=== PATIENT | female | born 1950 | race Caucasian/White ===

== ENCOUNTER 2020-02-13 07:46 | Outpatient (REF) | payer MEDICARE, SELFPAY ==
[2020-02-13 11:54] LABS: Alanine Aminotransferase 11 U/L (0-31); Albumin Level 3.9 g/dL (3.5-5.0); Alkaline Phosphatase 74 U/L (39-117); Anion Gap 13 (12-20); Aspartate Amino Transferase 13 U/L (5-31); Bilirubin Total 0.5 mg/dL (0.0-1.0); Blood Urea Nitrogen 15 mg/dL (9-16); Calcium 6.5 mg/dL (8.4-10.2); Carbon Dioxide 32 mmol/L (22-29); Chloride 97 mmol/L (96-108); Cholesterol 114 mg/dL; Estimated Glomerular Filt Rate > 60; Glucose Fasting 123 mg/dL (60-99); HDL Cholesterol 41 mg/dL; LDL Cholesterol Calculated 37 mg/dl; Sodium 138 mmol/L (135-145); Total Protein 6.7 g/dL (6.5-8.0); Triglycerides 180 mg/dL
[2020-02-13 12:06] LABS: TSH reflex Free T4 4.07 mIU/mL (0.32-4.0)
[2020-02-13 12:24] LABS: Creatinine Urine 154.34 mg/dL; Microalbum/Creatinine Ratio Ur 14.2 ug/mg cr
[2020-02-13 12:43] LABS: Free T4 (Free Thyroxine) 1.23 ng/dL (0.71-1.85)
== END 2020-02-13 07:47 | disposition home or self-care (01) ==
LOC: HO.HMGCLDS 07:46
PROVIDERS: PCP Nurse Practitioner Family; Visit Provider Nurse Practitioner Family
DX: E03.9 Hypothyroidism, unspecified (principal); E11.9 Type 2 diabetes mellitus without complications
CPT/HCPCS: 80053; 80061; 82043; 84439; 84443

== ENCOUNTER 2020-05-22 08:10 | Outpatient (REF) | payer MEDICARE, SELFPAY ==
[2020-05-22 11:38] LABS: Estimated Average Glucose 143 mg/dL; Hemoglobin A1c % 6.6 %
[2020-05-22 12:11] LABS: Alanine Aminotransferase 13 U/L (0-31); Albumin Level 4.1 g/dL (3.5-5.0); Alkaline Phosphatase 59 U/L (39-117); Anion Gap 15 (12-20); Aspartate Amino Transferase 17 U/L (5-31); Bilirubin Total 0.5 mg/dL (0.0-1.0); Blood Urea Nitrogen 14 mg/dL (9-16); Calcium 8.2 mg/dL (8.4-10.2); Carbon Dioxide 29 mmol/L (22-29); Chloride 100 mmol/L (96-108); Cholesterol 150 mg/dL; Estimated Glomerular Filt Rate 54; Glucose Fasting 129 mg/dL (60-99); HDL Cholesterol 43 mg/dL; LDL Cholesterol Calculated 72 mg/dl; Potassium 4.2 mmol/L (3.3-5.1); Sodium 140 mmol/L (135-145); Total Protein 6.9 g/dL (6.5-8.0); Triglycerides 178 mg/dL
[2020-05-22 14:25] LABS: Creatinine Urine 215.46 mg/dL; Microalbum/Creatinine Ratio Ur 12.9 ug/mg cr
== END 2020-05-22 08:11 | disposition home or self-care (01) ==
LOC: HO.HMGCLDS 08:10
PROVIDERS: PCP Nurse Practitioner Family; Visit Provider Nurse Practitioner Family
DX: E11.9 Type 2 diabetes mellitus without complications (principal)
CPT/HCPCS: 36415; 80053; 80061; 82043; 83036

== ENCOUNTER 2020-07-25 11:42 | Outpatient (REF) | payer MEDICARE, SELFPAY ==
--- NOTE | ~2020-07-25 | XR_ITS ---
EXAMINATION: XR FINGER, RIGHT CLINICAL INFORMATION: Pain COMPARISON: None TECHNIQUE: Three views of the right right thumb. FINDINGS: Bone alignment is normal. No fracture or dislocation is seen. There is arthritis at the IP joint with joint space narrowing and osteophyte formation. Soft tissues are unremarkable. 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
== END 2020-07-25 11:43 | disposition home or self-care (01) ==
LOC: HO.HMGCX 11:42
PROVIDERS: PCP Nurse Practitioner Family; Visit Provider Hospitalist
DX: M79.644 Pain in right finger(s) (principal)
CPT/HCPCS: 73140

== ENCOUNTER 2020-08-28 09:14 | Outpatient (REF) | payer MEDICARE, SELFPAY ==
[2020-08-28 11:15] LABS: MANUAL DIFF FLAG NO
[2020-08-28 11:26] LABS: Basophils Absolute Auto 0.1 X10*3/uL (0.0-0.2); Basophils Percent Auto 0.6 % (0-2); Eosinophils Absolute Auto 0.9 X10*3/uL (0.0-0.4); Eosinophils Percent Auto 7.4 % (0-4); Hematocrit 26.9 % (37-47); Hemoglobin 7.5 g/dl (12.0-16.0); Imm Gran Abs Auto 0.07 X10*3/uL (0.00-0.03); Imm Gran Pct Auto 0.6 % (0.0-0.4); Lymphocytes Absolute Auto 2.4 X10*3/uL (1.2-4.9); Lymphocytes Percent Auto 20.3 % (20-40); Mean Corpuscular HGB Conc 27.9 g/dl (31.0-35.0); Mean Corpuscular Hemoglobin 20.8 pg (27.0-33.0); Mean Corpuscular Volume 74.5 fL (80-98); Mean Platelet Volume 11.4 fL (9.4-12.3); Monocytes Absolute Auto 0.9 X10*3/uL (0.1-1.2); Monocytes Percent Auto 7.5 % (2-11); Neutrophils Absolute Auto 7.6 X10*3/uL (2.0-8.3); Neutrophils Percent Auto 63.6 % (45-73); Platelet Count 360 X10*3/uL (160-400); Red Blood Count 3.61 X10*6/uL (4.20-5.50); Red Cell Distribution Width 17.9 % (11.0-16.0); White Blood Count 11.9 X10*3/uL (4.8-10.8)
[2020-08-28 12:12] LABS: TSH reflex Free T4 9.08 uIU/mL (0.32-4.0)
[2020-08-28 12:15] LABS: Alanine Aminotransferase 8 U/L (0-31); Albumin Level 3.8 g/dL (3.5-5.0); Alkaline Phosphatase 61 U/L (39-117); Anion Gap 14 (12-20); Aspartate Amino Transferase 13 U/L (5-31); Bilirubin Total 0.4 mg/dL (0.0-1.0); Blood Urea Nitrogen 23 mg/dL (9-16); Calcium 7.9 mg/dL (8.4-10.2); Carbon Dioxide 28 mmol/L (22-29); Chloride 101 mmol/L (96-108); Estimated Glomerular Filt Rate 43; Glucose Random 154 mg/dL (60-115); Iron 28 mcg/dL (30-160); Percent Iron Saturation 7 % (15-50); Potassium 4.2 mmol/L (3.3-5.1); Sodium 139 mmol/L (135-145); Total Iron Binding Capacity 415 mcg/dL (228-428); Total Protein 6.6 g/dL (6.5-8.0); Unsaturated Iron Binding 387 ug/dL
[2020-08-28 12:24] LABS: Vitamin B12 372 pg/mL (200-900)
[2020-08-28 12:39] LABS: Ferritin 1 ng/mL (10-250)
[2020-08-28 12:59] LABS: Free T4 (Free Thyroxine) 1.01 ng/dL (0.71-1.85)
== END 2020-08-28 09:15 | disposition home or self-care (01) ==
LOC: HO.HMGCLDS 09:14
PROVIDERS: PCP Nurse Practitioner Family; Visit Provider Nurse Practitioner Family
DX: Z13.89 Encounter for screening for other disorder (principal)
CPT/HCPCS: 36415; 80053; 82607; 82728; 83540; 84439; 84443; 85025

== ENCOUNTER 2020-08-28 12:44 | Inpatient (IN) | payer MEDICARE, SELFPAY ==
[2020-08-28] VITALS (9 sets, daily range): BP systolic 135–225; BP diastolic 53–82; PULSE 64–77; RESP 12–20; TEMP 36.9–37.3; O2SAT 99–100; BMI 51.7
--- NOTE | 2020-08-28 18:19 | ECG_ITS ---
Test Reason : LOW HH Blood Pressure : / mmHG Vent. Rate : 064 BPM Atrial Rate : 064 BPM P-R Int : 180 ms QRS Dur : 086 ms QT Int : 444 ms P-R-T Axes : 056 023 060 degrees QTc Int : 458 ms Normal sinus rhythm Septal infarct (cited on or before 02-NOV-2001) Abnormal ECG When compared with ECG of 25-JUN-2011 15:52, T wave inversion now evident in Lateral leads Referred By: Aurora Mayer Electronically Signed By:REINALDO BEASLEY MD
--- NOTE | 2020-08-28 18:52 | ED.RECABL ---
HPI - Recheck/Abnormal Lab/Rx General Chief Complaint: Recheck/Abnormal Lab/Rx Stated Complaint: low blood count Time Seen by Provider: 08/28/20 18:08 Source: patient Mode of arrival: ambulatory Limitations: no limitations History of Present Illness HPI narrative: Patient is a 70-year-old female with DM2, HTN who was sent to the emergency department by her PCP due to a low H&H. Patient admits to fatigue, shortness of breath with exertion and some bloody bowel movements a few weeks ago but states she has not had any recently. She states this is never happened before. Denies fever, chest pain, shortness of breath. Related Data Home Medications Medication Instructions Recorded Confirmed albuterol sulfate 90 mcg/actuation 2 puff INHALATION Q6H PRN 03/06/20 08/28/20 aerosol inhaler calcium carbonate-vitamin D3 1 cap PO BID 08/28/20 08/28/20 ibuprofen 600 mg PO TID PRN 08/28/20 08/28/20 montelukast 10 mg PO BEDTIME 08/28/20 08/28/20 Previous Rx's Medication Instructions Recorded hydrochlorothiazide 25 mg tablet 25 mg PO DAILY 30 Days #30 tab 07/29/20 metformin 1,000 mg tablet 1,000 mg PO BID 30 Days #60 tab 07/29/20 atenolol 50 mg tablet 50 mg PO DAILY #90 tab 07/30/20 levothyroxine 150 mcg tablet 150 mcg PO DAILY #90 tab 08/11/20 prazosin 1 mg capsule 1 mg PO BEDTIME 30 Days #30 cap 08/27/20 Allergies Allergy/AdvReac Type Severity Reaction Status Date / Time latex [Latex] Allergy Unknown BLISTERS Verified 08/27/20 15:43 penicillin V Allergy Unknown unknown Verified 08/27/20 15:43 Penicillins Allergy Unknown RASH Verified 08/27/20 15:43 Review of Systems Review of Systems: Yes all other systems are reviewed and are negative PMFSH Past Medical History Medical History Diabetes Surgical History History of thyroidectomy History of tonsillectomy History of tubal ligation Hx of cholecystectomy Social History Social History Alcohol intake: current Alcohol intake frequency: holidays/special occasions only Patient Tobacco Use Status: Never used Tobacco e-Cigarette/Vaping Use: Never Used Advance Directives: No Advance Directives Information Provided: No Physical Exam Vital Signs: Vital Signs: Last Vital Signs Temp 98.5 F 08/28/20 21:13 Pulse 77 08/28/20 21:13 Resp 17 08/28/20 21:13 BP 159/59 H 08/28/20 21:13 Pulse Ox 100 08/28/20 21:13 Body Mass Index 51.7 Const: General: cooperative, healthy appearing, comfortable, no acute distress and well developed Orientation/consciousness: patient oriented x3 Limitations: no limitations HENMT: Head: Yes normal to inspection Eyes: Conjunctivae: conjunctival abnormal bilateral (Pallor) Neck: Neck: Yes normal visual inspection and Yes full ROM Resp: Effort & Inspection: normal respiratory effort and able to speak in complete sentences Auscultation: clear to auscultation bilaterally Cardio: Rate: regular rate Rhythm: regular rhythm Heart sounds: normal S1 and S2 GI: Inspection: Yes normal to inspection Palpation (GI): Soft to palpation and nontender Skin: General skin exam: no rashes or lesions noted Neuro: General: patient oriented x3 Extrem: General: Yes normal to inspection Course Course Course Narrative: Patient is a 70-year-old female with DM2, HTN who was sent to the emergency department by her PCP due to a low H&H. VSS sans elevated BP 225/82, 184/56 . Labs sig for wbc 11.9, hbg 7.5, hct 26.9, TSH 9.08 (labs drawn by her PCP this am). Reevaluation(s) Reevaluation #1: repet CBC and BMP, Type and screen ordered, 2 units red blood cells ordered, stool occult positive, COVID negative, Patient to be admitted. BP 151/62 currently and other VSS. Time: 18:50 MDM - Recheck/Abnormal Lab/Rx Lab Data Attestation: I reviewed the patient's lab results. Result diagrams: 08/28/20 20:07 08/28/20 20:07 Labs: Lab Results 08/28/20 08/28/20 08/28/20 Range/Units 19:46 19:47 19:47 WBC (4.8-10.8) X10*3/uL RBC (4.20-5.50) X10*6/uL Hgb (12.0-16.0) g/dl Hct (37-47) % MCV (80-98) fL MCH (27.0-33.0) pg MCHC (31.0-35.0) g/dl RDW (11.0-16.0) % Plt Count (160-400) X10*3/uL MPV (9.4-12.3) fL Immature Gran % (Auto) (0.0-0.4) % Neut % (Auto) (45-73) % Lymph % (Auto) (20-40) % [place] % (Auto) (2-11) % Eos % (Auto) (0-4) % Baso % (Auto) (0-2) % Lymph # (Auto) (1.2-4.9) X10*3/uL [place] # (Auto) (0.1-1.2) X10*3/uL Eos # (Auto) (0.0-0.4) X10*3/uL Baso # (Auto) (0.0-0.2) X10*3/uL Abs Immat Gran (auto) (0.00-0.03) X10*3/uL Absolute Neuts (auto) (2.0-8.3) X10*3/uL Absolute Nucleated RBC (0.0-0.012) X10*3/uL Nucleated RBC % (auto) (0.0-0.2) /100WBC Sodium (135-145) mmol/L Potassium (3.3-5.1) mmol/L Chloride (96-108) mmol/L Carbon Dioxide (22-29) mmol/L Anion Gap (12-20) BUN (9-16) mg/dL Creatinine (0.5-1.4) mg/dL Estim Creat Clear Calc Estimated GFR Random Glucose (60-115) mg/dL Calcium (8.4-10.2) mg/dL Troponin I High Sens 4.3 (<3.5-17.0) ng/L Stool Occult Blood (NEGATIVE) COVID-19 ([facility]) Negative (Negative) COVID-19 Clin Com See Note Blood Type A Positive Antibody Screen NEGATIVE Crossmatch See Detail 08/28/20 08/28/20 08/28/20 Range/Units 19:47 20:07 20:07 WBC 11.5 H (4.8-10.8) X10*3/uL RBC 3.64 L (4.20-5.50) X10*6/uL Hgb 7.6 L (12.0-16.0) g/dl Hct 26.6 L (37-47) % MCV 73.1 L (80-98) fL MCH 20.9 L (27.0-33.0) pg MCHC 28.6 L (31.0-35.0) g/dl RDW 17.7 H (11.0-16.0) % Plt Count 367 (160-400) X10*3/uL MPV 11.2 (9.4-12.3) fL Immature Gran % (Auto) 0.6 H (0.0-0.4) % Neut % (Auto) 66.1 (45-73) % Lymph % (Auto) 18.6 L (20-40) % [place] % (Auto) 6.6 (2-11) % Eos % (Auto) 7.6 H (0-4) % Baso % (Auto) 0.5 (0-2) % Lymph # (Auto) 2.1 (1.2-4.9) X10*3/uL [place] # (Auto) 0.8 (0.1-1.2) X10*3/uL Eos # (Auto) 0.9 H (0.0-0.4) X10*3/uL Baso # (Auto) 0.1 (0.0-0.2) X10*3/uL Abs Immat Gran (auto) 0.07 H (0.00-0.03) X10*3/uL Absolute Neuts (auto) 7.6 (2.0-8.3) X10*3/uL Absolute Nucleated RBC 0.000 (0.0-0.012) X10*3/uL Nucleated RBC % (auto) 0.0 (0.0-0.2) /100WBC Sodium 139 (135-145) mmol/L Potassium 3.8 (3.3-5.1) mmol/L Chloride 100 (96-108) mmol/L Carbon Dioxide 29 (22-29) mmol/L Anion Gap 14 (12-20) BUN 18 H (9-16) mg/dL Creatinine 1.06 (0.5-1.4) mg/dL Estim Creat Clear Calc 60.4 Estimated GFR 52 Random Glucose 121 H (60-115) mg/dL Calcium 7.9 L (8.4-10.2) mg/dL Troponin I High Sens (<3.5-17.0) ng/L Stool Occult Blood POSITIVE (NEGATIVE) COVID-19 (FREDO) (Negative) COVID-19 Clin Com Blood Type Antibody Screen Crossmatch ECG Data Attestation: I personally reviewed and interpreted this ECG as follows: Prior ECG tracings: not available for review Interpretation: [address] [id number] ReportDraft Patient: Yulissa EMR#: [id number]: 1950cct:[id number]/Sex: 70 / FADM Date: 08/28/20Loc: [address] Dr: Ordering Physician: Aurora Mayer PA-C Date of Service: 08/28/20 Procedure(s): ECG 12 lead EKG Accession Number(s): [id number] cc: ~ Test Reason : LOW HH Blood Pressure : / mmHG Vent. Rate : 064 BPM Atrial Rate : 064 BPM P-R Int : 180 ms QRS Dur : 086 ms QT Int : 444 ms P-R-T Axes : 056 023 060 degrees QTc Int : 458 ms Normal sinus rhythm Septal infarct (cited on or before 02-NOV-2001) Abnormal ECG When compared with ECG of 25-JUN-2011 15:52, T wave inversion now evident in Lateral leads Referred By: Aurora Mayer Electronically Signed By: Dictated By:Signed By: DD/ 24TD/TT: 08/28/201924Transcriptionist:
[2020-08-28 20:03] LABS: OBS Int Ctl Valid YES; OBS1 POSITIVE (NEGATIVE)
[2020-08-28] MEDS: Furosemide 20 MG/2 ML VIAL IVPUSH (20:08)
[2020-08-28 20:20] LABS: Troponin-I High Sensitivity 4.3 ng/L (<3.5-17.0)
[2020-08-28 20:20] LABS: Basophils Absolute Auto 0.1 X10*3/uL (0.0-0.2); Basophils Percent Auto 0.5 % (0-2); Eosinophils Absolute Auto 0.9 X10*3/uL (0.0-0.4); Eosinophils Percent Auto 7.6 % (0-4); Hematocrit 26.6 % (37-47); Hemoglobin 7.6 g/dl (12.0-16.0); Imm Gran Abs Auto 0.07 X10*3/uL (0.00-0.03); Imm Gran Pct Auto 0.6 % (0.0-0.4); Lymphocytes Absolute Auto 2.1 X10*3/uL (1.2-4.9); Lymphocytes Percent Auto 18.6 % (20-40); Mean Corpuscular HGB Conc 28.6 g/dl (31.0-35.0); Mean Corpuscular Hemoglobin 20.9 pg (27.0-33.0); Mean Corpuscular Volume 73.1 fL (80-98); Mean Platelet Volume 11.2 fL (9.4-12.3); Monocytes Absolute Auto 0.8 X10*3/uL (0.1-1.2); Monocytes Percent Auto 6.6 % (2-11); Neutrophils Absolute Auto 7.6 X10*3/uL (2.0-8.3); Neutrophils Percent Auto 66.1 % (45-73); Platelet Count 367 X10*3/uL (160-400); Red Blood Count 3.64 X10*6/uL (4.20-5.50); Red Cell Distribution Width 17.7 % (11.0-16.0); White Blood Count 11.5 X10*3/uL (4.8-10.8)
[2020-08-28 20:22] LABS: COVID-19 Test Negative (Negative)
--- NOTE | 2020-08-28 20:25 | PHA.MEDREC ---
Pharmacy Consult ? Medication Reconciliation Pharmacy has completed the medication reconciliation and there were no significant medication issues requiring provider attention. Luh Srivastava, PharmD [phone]
[2020-08-28 20:32] LABS: MANUAL DIFF FLAG NO
[2020-08-28 20:45] LABS: Anion Gap 14 (12-20); Calcium 7.9 mg/dL (8.4-10.2); Carbon Dioxide 29 mmol/L (22-29); Chloride 100 mmol/L (96-108); Creatinine Clr Calc Pharmacy 60.4; Estimated Glomerular Filt Rate 52; Glucose Random 121 mg/dL (60-115); Potassium 3.8 mmol/L (3.3-5.1); Sodium 139 mmol/L (135-145)
[2020-08-28 20:51] LABS: Blood Urea Nitrogen 18 mg/dL (9-16)
--- NOTE | 2020-08-28 20:56 | P.HPHOSP_ITS ---
History of Present Illness Date of Service: 08/28/20 Chief Complaint: Anemia 70-year-old female with a past medical history of hypertension, hyperlipidemia, diabetes, asthma, history of thyroid ablation subsequent hypothyroidism on levothyroxine presented to the hospital with a chief complaint of anemia. Patient reported that she had a routine labs done by the PCP and noted to have hemoglobin of 7.5 subsequently recommended to go to the hospital for further evaluation. Patient reported that couple weeks ago she has rectal bleeding. Denies any further episodes of alert. Denies any nausea vomiting. Mentioned that she takes ibuprofen. Denies any GI or symptoms. Denies any chest pain palpitations lightheadedness or dizziness. Patient reports she has shortness of breath and dyspnea on exertion on but not too far from her baseline. Review of all other systems is negative except mentioned above ER course: Per ER team patient noted to be mildly hypertensive on presentation, abdominal examination was benign. Stool guaiac was positive. Repeat hemoglobin pending. Patient being ordered 2 units of PRBC. Admitted to the hospital for further management. REPLACED BY [facility] Medical History Diabetes Surgical History History of thyroidectomy History of tonsillectomy History of tubal ligation Hx of cholecystectomy Social History Household Members: Spouse Housing: House Do you presently have visiting nurse or other home services: No Alcohol intake: current Alcohol intake frequency: holidays/special occasions only Patient Tobacco Use Status: Never used Tobacco e-Cigarette/Vaping Use: Never Used Use of substances other than those prescribed or required for medical reasons: No Currently Displaying Signs/Symptoms of Drug Intoxication Withdrawal: No Have you been hit, kicked, punched, or otherwise hurt by someone within the past year? If so, by whom?: No Do you feel safe in your current relationship?: Yes Is there a partner from a previous relationship who is making you feel unsafe now?: No Are you made to feel afraid or neglected: No Advance Directives: No Advance Directives Information Provided: No Do you have thoughts of harming others: None Do you have a plan to hurt others: No Plan Recently lost weight without trying: No Nutrition Risks: No Nutritional Risk Patient : No : No Poor oral hygiene: No service: No Current occupational status: retired Meds Allergies Allergy/AdvReac Type Severity Reaction Status Date / Time latex [Latex] Allergy Unknown BLISTERS Verified 08/27/20 15:43 penicillin V Allergy Unknown unknown Verified 08/27/20 15:43 Penicillins Allergy Unknown RASH Verified 08/27/20 15:43 Active Medications: Current Medications Generic Name Dose Route Start Last Admin Trade Name Freq PRN Reason Stop Dose Admin Acetaminophen 650 mg 08/28/20 20:53 Acetaminophen 325 Mg Tablet PO Q6H PRN Pain, Mild (Pain Scale 1-3) Albuterol Sulfate 2 puff 08/28/20 20:54 Albuterol Sulfate 90 Mcg 8 Gm Inhaler INHALE Q6H PRN Shortness Of Breath Or Wheezing Atenolol 50 mg 08/29/20 09:00 Atenolol 50 Mg Tablet PO DAILY [facility] Protocol Dextrose/Sodium Chloride 1,000 mls @ 100 mls/hr 08/28/20 21:00 D51/2ns IVCONT .Q10H [facility] Insulin Human Lispro 0 unit 08/28/20 21:00 Insulin Lispro 100 Unit/Ml 3 Ml Vial SUBCUT QIDACHS [facility] Protocol Levothyroxine Sodium 150 mcg 08/29/20 09:00 Levothyroxine Sodium 150 Mcg Tablet PO DAILY [facility] Montelukast Sodium 10 mg 08/28/20 21:00 Montelukast Sodium 10 Mg Tablet PO BEDTIME [facility] Non-Formulary Medication 1 cap 08/28/20 21:00 Calcium Carbonate-Vitamin D3 PO BID [facility] Pantoprazole Sodium 40 mg 08/29/20 06:30 Pantoprazole Sodium 40 Mg/10 Ml Vial IVPUSH BID@0630,1630 [facility] Pharmacy Consult 1 each 08/28/20 19:50 Consult Rx Perform Med Rec MISCELLANE ONCE PRN Consult order Prazosin HCl 1 mg 08/28/20 21:00 Prazosin Hcl 1 Mg Capsule PO BEDTIME [facility] Protocol Sodium Chloride 3 ml 08/29/20 00:00 0.9 % Sodium Chloride Flush 3 Ml Syringe IVFLUSH QSHIFT [facility] Home Medications Medication Instructions Recorded Confirmed Last Taken Type albuterol sulfate 90 mcg/actuation 2 puff INHALATION Q6H PRN 03/06/20 08/28/20 Unknown History aerosol inhaler calcium carbonate-vitamin D3 1 cap PO BID 08/28/20 08/28/20 08/28/20 History ibuprofen 600 mg PO TID PRN 08/28/20 08/28/20 08/27/20 History montelukast 10 mg PO BEDTIME 08/28/20 08/28/20 08/27/20 History Physical Exam Vital Signs and Narrative: Vital Signs: Last Vital Signs Temp 98.6 F 08/28/20 19:48 Pulse 66 08/28/20 19:48 Resp 12 08/28/20 19:48 BP 151/62 H 08/28/20 19:48 Pulse Ox 99 08/28/20 19:48 Body Mass Index 51.7 Gen: Appears be in no acute distress HEENT: NCAT, Moist mucosa. Pulmonary: Vesicular breath sounds, fair air entry CVS: Normal S1-S2 Abdomen: BS+, Soft, Nontender Extremities: Warm well perfused Neuro: Alert and awake. Results Labs CBC and Chem 7: 08/31/20 05:48 08/31/20 05:48 Labs: Laboratory Results - last 24 hr 08/28/20 08/28/20 08/28/20 19:46 19:47 19:47 MCV MCH MCHC RDW Plt Count MPV Immature Gran % (Auto) Neut % (Auto) Lymph % (Auto) [place] % (Auto) Eos % (Auto) Baso % (Auto) Lymph # (Auto) [place] # (Auto) Eos # (Auto) Baso # (Auto) Abs Immat Gran (auto) Absolute Neuts (auto) Absolute Nucleated RBC Nucleated RBC % (auto) Anion Gap Estim Creat Clear Calc Estimated GFR Random Glucose Calcium Troponin I High Sens 4.3 Stool Occult Blood COVID-19 ([facility]) Negative COVID-19 Clin Com See Note Blood Type A Positive Antibody Screen NEGATIVE Crossmatch See Detail 08/28/20 08/28/20 08/28/20 19:47 20:07 20:07 MCV 73.1 L MCH 20.9 L MCHC 28.6 L RDW 17.7 H Plt Count 367 MPV 11.2 Immature Gran % (Auto) 0.6 H Neut % (Auto) 66.1 Lymph % (Auto) 18.6 L [place] % (Auto) 6.6 Eos % (Auto) 7.6 H Baso % (Auto) 0.5 Lymph # (Auto) 2.1 [place] # (Auto) 0.8 Eos # (Auto) 0.9 H Baso # (Auto) 0.1 Abs Immat Gran (auto) 0.07 H Absolute Neuts (auto) 7.6 Absolute Nucleated RBC 0.000 Nucleated RBC % (auto) 0.0 Anion Gap 14 Estim Creat Clear Calc 60.4 Estimated GFR 52 Random Glucose 121 H Calcium 7.9 L Troponin I High Sens Stool Occult Blood POSITIVE COVID-19 (FREDO) COVID-19 Clin Com Blood Type Antibody Screen Crossmatch Assessment and Plan (1) Anemia: Status: Acute 70-year-old female with a past medical history of hypertension, hyperlipidemia, diabetes, asthma, hypothyroidism presented to the hospital with a chief complaint of anemia. Anemia: Patient was stool guaiac positive. GI consult IV ppi Patient being transfused 2 units of PRBC. Serial H&H Patient vitals are currently stable. Will continue to monitor on telemetry. Hypertension: Patient will be continued on home antihypertensives including atenolol given patient blood pressure is slightly on the higher side on presentation. Hypothyroidism: Patient TSH is 9.0-unclear if the patient a levothyroxine dose has been recently adjusted. Will defer to the a.m. team to discuss with the patient's PCP and adjust dose accordingly. Will continue the patient's current levothyroxine dose of 150 mcg. DVT prophylaxis: SCD boots Code status: Full code
[2020-08-28 21:23] LABS: Glucose, Whole Blood 115 mg/dL (60-115)
[2020-08-28] MEDS: Dextrose 5 % and 0.45 % NaCl 1,000 ML 100 ML IVCONT (21:52)
[2020-08-28] MEDS: Montelukast Sodium 10 MG TABLET PO (21:55)
[2020-08-28] MEDS: Prazosin HCL 1 MG CAPSULE PO (21:55)
[2020-08-29] VITALS (12 sets, daily range): BP systolic 125–174; BP diastolic 53–79; PULSE 53–80; RESP 16–19; TEMP 36–37.2; O2SAT 97–100
--- NOTE | 2020-08-29 00:31 | PC.NURSE ---
Pt's RAC IV infiltrated. IV removed, fluids switched to other IV. Pt IV maintenance fluids will need to be paused during administration of blood as this RN unable to obtain to additional PIV
[2020-08-29] MEDS: 0.9 % Sodium Chloride Flush 3 ML SYRINGE IVFLUSH ×3 (01:25→21:18)
[2020-08-29] MEDS: Levothyroxine Sodium 150 MCG TABLET PO (05:35)
[2020-08-29] MEDS: Pantoprazole Sodium 40 MG/10 ML VIAL IVPUSH ×2 (05:36→17:17)
[2020-08-29 06:54] LABS: MANUAL DIFF FLAG NO
[2020-08-29 07:04] LABS: Basophils Absolute Auto 0.1 X10*3/uL (0.0-0.2); Basophils Percent Auto 0.5 % (0-2); Eosinophils Absolute Auto 0.7 X10*3/uL (0.0-0.4); Eosinophils Percent Auto 7.2 % (0-4); Hematocrit 30.8 % (37-47); Hemoglobin 9.1 g/dl (12.0-16.0); Imm Gran Abs Auto 0.05 X10*3/uL (0.00-0.03); Imm Gran Pct Auto 0.5 % (0.0-0.4); Lymphocytes Absolute Auto 1.7 X10*3/uL (1.2-4.9); Lymphocytes Percent Auto 16.9 % (20-40); Mean Corpuscular HGB Conc 29.5 g/dl (31.0-35.0); Mean Corpuscular Hemoglobin 22.4 pg (27.0-33.0); Mean Corpuscular Volume 75.9 fL (80-98); Mean Platelet Volume 10.6 fL (9.4-12.3); Monocytes Absolute Auto 0.7 X10*3/uL (0.1-1.2); Monocytes Percent Auto 7.3 % (2-11); Neutrophils Absolute Auto 6.8 X10*3/uL (2.0-8.3); Neutrophils Percent Auto 67.6 % (45-73); Platelet Count 308 X10*3/uL (160-400); Red Blood Count 4.06 X10*6/uL (4.20-5.50); Red Cell Distribution Width 18.9 % (11.0-16.0); White Blood Count 10.1 X10*3/uL (4.8-10.8)
[2020-08-29 07:19] LABS: Glucose, Whole Blood 158 mg/dL (60-115)
[2020-08-29 07:28] LABS: Magnesium 1.6 mg/dL (1.6-2.6)
[2020-08-29 07:33] LABS: Anion Gap 14 (12-20); Blood Urea Nitrogen 16 mg/dL (9-16); Calcium 7.4 mg/dL (8.4-10.2); Carbon Dioxide 28 mmol/L (22-29); Chloride 100 mmol/L (96-108); Estimated Glomerular Filt Rate 55; Glucose Random 156 mg/dL (60-115); Potassium 3.4 mmol/L (3.3-5.1); Sodium 139 mmol/L (135-145)
[2020-08-29] MEDS: Calcium + Vitamin D 250 MG TABLET 500 MG PO ×2 (07:53→21:17)
[2020-08-29] MEDS: atenoloL 50 MG TABLET PO (07:54)
--- NOTE | 2020-08-29 09:03 | P.CDIC_ITS ---
CDI Concurrent Query Service Date: 08/29/20 Documentation Clarification: Please clarify if you are treating a proba ble/suspected/likely or confirmed: Acute Blood Loss Anemia Other Anemia, please specify if known Provider Response: Acute Blood Loss Anemia PLEASE DO NOT DELETE/MODIFY EXISTING CONTENT Additional information is needed in order to code to the highest accuracy and appropriate Severity of Illness (SOI). Please clarify the information noted below in your progress notes and discharge summary. Risk Factors/Clinical Indicators/Treatments 70 year old female admitted with low H/H of 7.5/26.9 Stool occult blood positive Treated with IV PPI and transfusion 2 units PRBCs Per H&P Impression: Anemia GI consult pending CDS: Tamia Veliz RN Contact Number: [phone] Please Review the information above and exercise your independent professional judgment in responding to the query. If you concur, pleas document in the PROGRESS NOTES and DISCHARGE SUMMARY. If you do not agree with the query, please document in the query above. THIS QUERY IS PART OF THE PERMANENT MEDICAL RECORD
[2020-08-29] MEDS: Dextrose 5 % and 0.45 % NaCl 1,000 ML 100 ML IVCONT ×2 (10:35→21:18)
--- NOTE | 2020-08-29 11:12 | P.PNIM_ITS ---
Subjective Subjective Date of Service: 08/29/20 <SOILA Harper - Last Filed: 08/29/20 11:39> 08/29/20 <Heber Munguia MD - Last Filed: 08/29/20 17:41> Interval History: Seen and examined this morning, follow-up for anemia Patient reports 2 weeks ago she had 2 days of bright red blood per rectum which resolved spontaneously. Prior to that she had taken ibuprofen scheduled for a few days due to hand pain. She denies any rectal bleeding since that time. She is unsure if her stool may be darker than usual. She denies any dizziness, shortness of breath, chest pain, fatigue. She denies any abdominal pain <SOILA Harper - Last Filed: 08/29/20 11:39> Review of Systems Review of Systems: Yes all other systems are reviewed and are negative <SOILA Harper - Last Filed: 08/29/20 11:39> Constitutional Constitutional: Denies chills and Denies fever(s) <SOILA Harper - Last Filed: 08/29/20 11:39> Cardiovascular Cardiovascular: Denies chest pain <SOILA Harper - Last Filed: 08/29/20 11:39> Respiratory Respiratory: Denies cough <SOILA Harper Last Filed: 08/29/20 11:39> Gastrointestinal Gastrointestinal: Denies abdominal pain <SOILA Harper - Last Filed: 08/29/20 11:39> Physical Exam Vital Signs: Vital Signs: Last Vital Signs Temp 97.1 F 08/29/20 07:11 Pulse 64 08/29/20 07:54 Resp 18 08/29/20 07:11 BP 155/66 H 08/29/20 07:54 Pulse Ox 99 08/29/20 07:11 Body Mass Index 51.7 <SOILA Harper Last Filed: 08/29/20 11:39> Const: General: comfortable and no acute distress <SOILA Harper Last Filed: 08/29/20 11:39> Nutritional Appearance: obese <SOILA Harper Last Filed: 08/29/20 11:39> Orientation/consciousness: patient oriented x3 <SOILA Harper Last Filed: 08/29/20 11:39> HENMT: Head: Yes normocephalic and Yes atraumatic <SOILA Harper - Last Filed: 08/29/20 11:39> Eyes: Sclerae: sclerae normal <SOILA Harper - Last Filed: 08/29/20 11:39> Chest: Chest palpation & inspection: normal inspection of the chest <SOILA Harper - Last Filed: 08/29/20 11:39> Resp: Effort & Inspection: normal respiratory effort and no respiratory distress <SOILA Harper - Last Filed: 08/29/20 11:39> Cardio: Rate: regular rate <SOILA Harper - Last Filed: 08/29/20 11:39> Rhythm: regular rhythm <SOILA Harper - Last Filed: 08/29/20 11:39> GI: Palpation (GI): Soft to palpation and nontender <SOILA Harper - Last Filed: 08/29/20 11:39> Neuro: General: patient oriented x3 <SOILA Harper - Last Filed: 08/29/20 11:39> Cranial nerves: Yes CN's II-XII intact bilaterally and Yes Bilaterally intact EOM present <SOILA Harper Last Filed: 08/29/20 11:39> Objective Data Current Medications Generic Name Dose Route Start Last Admin Trade Name Anahi PRN Reason Stop Dose Admin Acetaminophen 650 mg 08/28/20 20:53 Acetaminophen 325 Mg Tablet PO Q6H PRN Pain, Mild (Pain Scale 1-3) Albuterol Sulfate 2 puff 08/28/20 20:54 Albuterol Sulfate 90 Mcg 8 Gm Inhaler INHALE Q6H PRN Shortness Of Breath Or Wheezing Atenolol 50 mg 08/29/20 09:00 08/29/20 07:54 Atenolol 50 Mg Tablet PO 50 mg DAILY [facility] Administration Protocol Calcium Carbonate/Cholecalciferol 500 mg 08/29/20 09:00 08/29/20 07:53 Calcium + Vitamin D 250 Mg Tablet PO 500 mg BID [facility] Administration Dextrose/Sodium Chloride 1,000 mls @ 100 mls/hr 08/28/20 21:00 08/29/20 10:35 D51/2ns IVCONT 100 mls/hr .Q10H [facility] Administration Insulin Human Lispro 0 unit 08/28/20 21:00 08/29/20 08:58 Insulin Lispro 100 Unit/Ml 3 Ml Vial SUBCUT Not Given QIDACHS [facility] Protocol Levothyroxine Sodium 150 mcg 08/29/20 06:00 08/29/20 05:35 Levothyroxine Sodium 150 Mcg Tablet PO 150 mcg DAILY@0600 [facility] Administration Montelukast Sodium 10 mg 08/28/20 21:00 08/28/20 21:55 Montelukast Sodium 10 Mg Tablet PO 10 mg BEDTIME [facility] Administration Pantoprazole Sodium 40 mg 08/29/20 06:30 08/29/20 05:36 Pantoprazole Sodium 40 Mg/10 Ml Vial IVPUSH 40 mg BID@0630,1630 [facility] Administration Pharmacy Consult 1 each 08/28/20 19:50 Consult Rx Perform Med Rec MISCELLANE ONCE PRN Consult order Prazosin HCl 1 mg 08/28/20 21:00 08/28/20 21:55 Prazosin Hcl 1 Mg Capsule PO 1 mg BEDTIME [facility] Administration Protocol Sodium Chloride 3 ml 08/29/20 00:00 08/29/20 07:54 0.9 % Sodium Chloride Flush 3 Ml Syringe IVFLUSH Not Given QSHIFT [facility] <SOILA Harper - Last Filed: 08/29/20 11:39> Labs CBC & Chem 7: : 08/29/20 06:39 08/29/20 06:39 <SOILA Harper - Last Filed: 08/29/20 11:39> Assessment and Plan (1) Anemia: Status: Acute <SOILA Harper - Last Filed: 08/29/20 11:39> Assessment and Plan: This is a 70-year-old female with a past medical history of hypertension, hyperlipidemia, diabetes, asthma, history of thyroid ablation subsequent hypothyroidism on levothyroxine who was sent to the emergency department by PCP after routine labs revealed hemoglobin of 7.5. Anemia with heme-positive stool/ probable acute blood loss anemia 2 days of BRBPR 2 weeks ago. no active bleeding since. no baseline H/H in system. -s/p transfusion 2U rbc with appropriate rise in H/H -GI consult pending -follow H/H HTN -continue atenolol Hypothyroidism TSH elevated, outpatient follow up -continue Synthroid Morbid obesity BMI 51.8 -weight loss encouraged DVT ppx - boots code status - full code Attending: Dr. Munguia <SOILA Harper - Last Filed: 08/29/20 11:39> I saw the patient and discussed finding, mangement, and disposition with SOILA and I agree with above, except if otherwise stated. <Heber Munguia MD - Last Filed: 08/29/20 17:41>
[2020-08-29 12:53] LABS: Glucose, Whole Blood 151 mg/dL (60-115)
--- NOTE | 2020-08-29 16:12 | MHC.CM.PN ---
CM MET WITH PT WHO REPORTS SHE LIVES AT HOME WITH HER AND IS INDEPENDENT WITH ALL CARE AND MOBILITY. PT DENIES THE USE OF DME AND HAS NO IN HOME SERVICES. PT CONFIRMS HER PCP IS AJIT JARRETT. PT REPORTS SHE DOES NOT HAVE A HCP, SHE DOES NOT WANT TO COMPLETE ONE TODAY BUT IS INTERESTED IN RECEIVING INFORMATION. IMM DELIVERED CURRENT DC PLAN IS HOME FAMILY TO TRANSPORT
--- NOTE | 2020-08-29 16:37 | PM.EVENT ---
Event Note Date of Service: 08/29/20 Event Note: GI consult dictated Iron def anemia and heme positive stools s/p 2 u prbc's without signs of active bleeding EGD and colonoscopy 09/01 for further evaluation. Pt aware of risks and benefits and agrees to proceed.
[2020-08-29 16:38] LABS: Glucose, Whole Blood 134 mg/dL (60-115)
--- NOTE | 2020-08-29 16:40 | MHC.SHP ---
Pre-Procedural Eval Section A The patient is an INPATIENT: Yes Changes since office visit: No Cold of Flu in the past 2 weeks, No New Medical Problems, No Changes in Medication and No Patient answered all questions The History & Physical has been completed within 30 days and I have reviewed it.: Yes Section B Chief Complaint: Anemia Allergies: Allergies Allergy/AdvReac Type Severity Reaction Status Date / Time latex [Latex] Allergy Unknown BLISTERS Verified 08/27/20 15:43 penicillin V Allergy Unknown unknown Verified 08/27/20 15:43 Penicillins Allergy Unknown RASH Verified 08/27/20 15:43 Plan I have reviewed the history and physical and performed a pertinent physical examination on my patient. No changes have occurred unless specified.
[2020-08-29 20:53] LABS: Glucose, Whole Blood 126 mg/dL (60-115)
[2020-08-29] MEDS: Montelukast Sodium 10 MG TABLET PO (21:17)
[2020-08-29] MEDS: Prazosin HCL 1 MG CAPSULE PO (21:17)
[2020-08-30] VITALS (8 sets, daily range): BP systolic 118–144; BP diastolic 47–66; PULSE 60–75; RESP 18–20; TEMP 36.3–36.9; O2SAT 98
--- NOTE | 2020-08-30 01:20 | CONS_ITS ---
DATE OF SERVICE: 08/29/2020 REFERRING PHYSICIAN: SOILA Horan REASON FOR CONSULTATION: Iron-deficiency anemia and Hemoccult-positive stools. HISTORY OF PRESENT ILLNESS: The patient is a pleasant 70-year-old woman, who was admitted to the hospital after presenting to the emergency room yesterday with complaints of anemia. Lab work done to her PCP documented a hematocrit of 26.9 on August 28. The patient states for 2 months, she has been cold and has been eating ice. She has had 2 episodes of hematochezia, where red blood was noted in the toilet bowl, but did not seek care for this. She has not noted any lizbeth melena. She does use occasional ibuprofen for joint aches and pains, but denies a prior history of peptic ulcer disease or chronic upper GI symptoms. She received 2 units of packed red blood cells in transfusion after admission and has had no signs of bleeding. Iron studies have documented iron deficiency with a saturation of 7 and a ferritin of 1. She previously underwent colonoscopy in 2014 for colon cancer screening, this showed sigmoid diverticulosis and small internal hemorrhoids. She has not had upper endoscopy. Stool testing has been positive for occult blood. PAST MEDICAL HISTORY: 1. Diabetes mellitus. 2. Hypertension. 3. Hyperlipidemia. 4. Asthma. 5. Thyroid disease. PAST SURGICAL HISTORY: Includes cholecystectomy and tonsillectomy and tubal ligation and thyroidectomy. CURRENT MEDICATIONS: Her current medication list is reviewed in the chart. ALLERGIES: TO LATEX AND PENICILLIN. FAMILY HISTORY: Negative for GI malignancy. SOCIAL HISTORY: She does not smoke. She occasionally drinks alcohol. 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 REVIEW OF SYSTEMS: SKIN: No pruritus. HEENT: Negative. CARDIOPULMONARY: She denies shortness of breath or chest pain. GASTROINTESTINAL: As above. GENITOURINARY: Negative. NEUROPSYCHIATRIC: Negative. PHYSICAL EXAMINATION: GENERAL: Shows a pleasant female, lying in bed under multiple blankets. VITAL SIGNS: Reviewed in electronic medical record and are stable. SKIN: Anicteric. HEENT: Shows no scleral icterus. NECK: Without lymphadenopathy or thyromegaly. LUNGS: Clear. HEART: Shows regular rate and rhythm. S1, S2. No murmur. ABDOMEN: Soft without focal masses or tenderness. Bowel sounds are present. No organomegaly is noted. EXTREMITIES: Without edema. LABORATORY DATA: Reviewed. IMPRESSION: Iron-deficiency anemia with Hemoccult-positive stools. At this time, she does not show signs of active bleeding and has had an appropriate response to blood transfusion. I would recommend monitoring her hematocrit. She is being treated empirically with a proton pump inhibitor. I discussed endoscopy and colonoscopy including risks and benefits for further evaluation. She understands these and agrees to proceed. This will be arranged for the . Thanks for asking me to see her. I will follow her in the hospital with you. MD AMI Matthew/EVERTON / [phone]
[2020-08-30] MEDS: Levothyroxine Sodium 150 MCG TABLET PO (06:10)
[2020-08-30] MEDS: Pantoprazole Sodium 40 MG/10 ML VIAL IVPUSH ×2 (06:10→16:33)
[2020-08-30] MEDS: Dextrose 5 % and 0.45 % NaCl 1,000 ML 100 ML IVCONT ×2 (06:14→16:34)
[2020-08-30 07:17] LABS: Glucose, Whole Blood 161 mg/dL (60-115)
[2020-08-30] MEDS: Insulin Lispro 100 UNIT/ML 3 ML VIAL SUBCUT ×2 (08:00→13:44)
[2020-08-30 09:14] LABS: Hematocrit 29.6 % (37-47); Hemoglobin 8.8 g/dl (12.0-16.0)
[2020-08-30] MEDS: 0.9 % Sodium Chloride Flush 3 ML SYRINGE IVFLUSH ×3 (10:01→20:06)
[2020-08-30] MEDS: Calcium + Vitamin D 250 MG TABLET 500 MG PO ×2 (10:01→20:06)
--- NOTE | 2020-08-30 10:02 | P.PNIM_ITS ---
Subjective Subjective Date of Service: 08/30/20 <Christine Delacruz NP - Last Filed: 08/30/20 10:06> 08/31/20 <Heber Munguia MD - Last Filed: 08/31/20 14:14> Interval History: follow-up anemia feeling better no bleeding <Christine Delacruz NP - Last Filed: 08/30/20 10:06> Physical Exam Vital Signs: Vital Signs: Last Vital Signs Temp 97.4 F 08/30/20 07:20 Pulse 64 08/30/20 07:20 Resp 20 08/30/20 07:20 BP 130/59 L 08/30/20 07:20 Pulse Ox 98 08/30/20 07:20 Body Mass Index 51.7 <Christine Delacruz NP - Last Filed: 08/30/20 10:06> Appearing in no acute distress, pale lung sounds are clear to auscultation heart regular rate rhythm, clear S1, S2 positive bowel sounds, abdomen is soft, nontender neuro patient is alert x3, no focal deficits <Christine Delacruz NP - Last Filed: 08/30/20 10:06> Objective Data Current Medications Generic Name Dose Route Start Last Admin Trade Name Freq PRN Reason Stop Dose Admin Acetaminophen 650 mg 08/28/20 20:53 Acetaminophen 325 Mg Tablet PO Q6H PRN Pain, Mild (Pain Scale 1-3) Albuterol Sulfate 2 puff 08/28/20 20:54 Albuterol Sulfate 90 Mcg 8 Gm Inhaler INHALE Q6H PRN Shortness Of Breath Or Wheezing Atenolol 50 mg 08/29/20 09:00 08/29/20 07:54 Atenolol 50 Mg Tablet PO 50 mg DAILY [facility] Administration Protocol Calcium Carbonate/Cholecalciferol 500 mg 08/29/20 09:00 08/29/20 21:17 Calcium + Vitamin D 250 Mg Tablet PO 500 mg BID [facility] Administration Dextrose/Sodium Chloride 1,000 mls @ 100 mls/hr 08/28/20 21:00 08/30/20 06:14 D51/2ns IVCONT 100 mls/hr .Q10H [facility] Administration Insulin Human Lispro 0 unit 08/28/20 21:00 08/29/20 21:22 Insulin Lispro 100 Unit/Ml 3 Ml Vial SUBCUT Not Given QIDACHS [facility] Protocol Levothyroxine Sodium 150 mcg 08/29/20 06:00 08/30/20 06:10 Levothyroxine Sodium 150 Mcg Tablet PO 150 mcg DAILY@0600 [facility] Administration Montelukast Sodium 10 mg 08/28/20 21:00 08/29/20 21:17 Montelukast Sodium 10 Mg Tablet PO 10 mg BEDTIME [facility] Administration Pantoprazole Sodium 40 mg 08/29/20 06:30 08/30/20 06:10 Pantoprazole Sodium 40 Mg/10 Ml Vial IVPUSH 40 mg BID@0630,1630 [facility] Administration Pharmacy Consult 1 each 08/28/20 19:50 Consult Rx Perform Med Rec MISCELLANE ONCE PRN Consult order Polyethylene Glycol/Electrolytes 240 ml 08/31/20 13:00 Peg 3350/Na Sulf,Bicarb,Cl/Kcl 4,000 Ml Soln.Recon PO 08/31/20 15:41 Q10M [facility] Prazosin HCl 1 mg 08/28/20 21:00 08/29/20 21:17 Prazosin Hcl 1 Mg Capsule PO 1 mg BEDTIME [facility] Administration Protocol Sodium Chloride 3 ml 08/29/20 00:00 08/29/20 21:18 0.9 % Sodium Chloride Flush 3 Ml Syringe IVFLUSH 3 ml QSHIFT [facility] Administration <Christine Delacruz NP - Last Filed: 08/30/20 10:06> Labs CBC & Chem 7: : 08/31/20 05:48 08/31/20 05:48 <Christine Delacruz NP - Last Filed: 08/30/20 10:06> Assessment and Plan (1) Anemia: Status: Acute <Christine Delacruz NP - Last Filed: 08/30/20 10:06> Assessment and Plan: 70-year-old female with a past medical history of hypertension, hyperlipidemia, diabetes, asthma, history of thyroid ablation subsequent hypothyroidism on levothyroxine who was sent to the emergency department by PCP after routine labs revealed hemoglobin of 7.5. Anemia with heme-positive stool/ probable acute blood loss anemia 2 days of BRBPR 2 weeks ago. no active bleeding since. no baseline H/H in system. -s/p transfusion 2U rbc with appropriate rise in H/H -Plan for EGD and colonoscopy on Tuesday -follow H/H HTN -continue atenolol Hypothyroidism TSH elevated, outpatient follow up -continue Synthroid Morbid obesity BMI 51.8 -weight loss encouraged as this can contribute to worsening of other comorbidities DVT ppx - boots due to anemia full code Attending: Dr. Munguia <Christine Delacruz NP - Last Filed: 08/30/20 10:06> I saw and examined the patient and discussed findings, mangement, and disposition with PA and I agree with the above, except if otherwise stated < Heber Munguia MD - Last Filed: 08/31/20 14:14>
[2020-08-30] MEDS: atenoloL 50 MG TABLET PO (10:04)
[2020-08-30 11:20] LABS: Glucose, Whole Blood 161 mg/dL (60-115)
[2020-08-30 16:22] LABS: Glucose, Whole Blood 112 mg/dL (60-115)
[2020-08-30] MEDS: Prazosin HCL 1 MG CAPSULE PO (20:05)
[2020-08-30] MEDS: Montelukast Sodium 10 MG TABLET PO (20:06)
[2020-08-30 20:26] LABS: Glucose, Whole Blood 139 mg/dL (60-115)
[2020-08-31 04:00] VITALS: BP 124/58; PULSE 66; RESP 18; TEMP 36.8; O2SAT 98
[2020-08-31] MEDS: Levothyroxine Sodium 150 MCG TABLET PO (05:51)
[2020-08-31] MEDS: Pantoprazole Sodium 40 MG/10 ML VIAL IVPUSH ×2 (05:51→16:43)
[2020-08-31 07:13] LABS: Hematocrit 29.9 % (37-47); Hemoglobin 8.7 g/dl (12.0-16.0); Mean Corpuscular HGB Conc 29.1 g/dl (31.0-35.0); Mean Corpuscular Hemoglobin 22.4 pg (27.0-33.0); Mean Corpuscular Volume 76.9 fL (80-98); Mean Platelet Volume 10.9 fL (9.4-12.3); Platelet Count 282 X10*3/uL (160-400); Red Blood Count 3.89 X10*6/uL (4.20-5.50); Red Cell Distribution Width 19.5 % (11.0-16.0); White Blood Count 9.1 X10*3/uL (4.8-10.8)
[2020-08-31 07:37] LABS: Anion Gap 14 (12-20); Blood Urea Nitrogen 15 mg/dL (9-16); Calcium 7.3 mg/dL (8.4-10.2); Carbon Dioxide 26 mmol/L (22-29); Chloride 105 mmol/L (96-108); Creatinine Clr Calc Pharmacy 71.1; Estimated Glomerular Filt Rate > 60; Glucose Random 123 mg/dL (60-115); Potassium 3.5 mmol/L (3.3-5.1); Sodium 141 mmol/L (135-145)
[2020-08-31] MEDS: 0.9 % Sodium Chloride Flush 3 ML SYRINGE IVFLUSH (07:43)
[2020-08-31 07:47] LABS: Glucose, Whole Blood 124 mg/dL (60-115)
[2020-08-31 08:00] VITALS: BP 163/77; PULSE 64; RESP 20; TEMP 36; O2SAT 97
[2020-08-31] MEDS: atenoloL 50 MG TABLET PO (08:37)
[2020-08-31] MEDS: Calcium + Vitamin D 250 MG TABLET 500 MG PO ×2 (08:37→22:00)
[2020-08-31] MEDS: Dextrose 5 % and 0.45 % NaCl 1,000 ML 100 ML IVCONT ×2 (08:38→16:35)
--- NOTE | 2020-08-31 09:55 | P.PNIM_ITS ---
Subjective Subjective Date of Service: 08/31/20 <Christine Delacruz NP - Last Filed: 08/31/20 09:57> 08/31/20 <Heber Munguia MD - Last Filed: 08/31/20 14:12> Interval History: Follow-up anemia of bed to chair no bleeding <Christine Delacruz NP - Last Filed: 08/31/20 09:57> Physical Exam Vital Signs: Vital Signs: Last Vital Signs Temp 96.8 F 08/31/20 08:00 Pulse 64 08/31/20 08:00 Resp 20 08/31/20 08:00 BP 163/77 H 08/31/20 08:00 Pulse Ox 97 08/31/20 08:00 Body Mass Index 51.7 <Christine Delacruz NP - Last Filed: 08/31/20 09:57> Appearing in no acute distress lung sounds are clear to auscultation heart regular rate rhythm, clear S1, S2 positive bowel sounds, abdomen is soft, nontender neuro patient is alert x3, no focal deficits <Christine Delacruz NP - Last Filed: 08/31/20 09:57> Objective Data Current Medications Generic Name Dose Route Start Last Admin Trade Name Freq PRN Reason Stop Dose Admin Acetaminophen 650 mg 08/28/20 20:53 Acetaminophen 325 Mg Tablet PO Q6H PRN Pain, Mild (Pain Scale 1-3) Albuterol Sulfate 2 puff 08/28/20 20:54 Albuterol Sulfate 90 Mcg 8 Gm Inhaler INHALE Q6H PRN Shortness Of Breath Or Wheezing Atenolol 50 mg 08/29/20 09:00 08/31/20 08:37 Atenolol 50 Mg Tablet PO 50 mg DAILY [facility] Administration Protocol Calcium Carbonate/Cholecalciferol 500 mg 08/29/20 09:00 08/31/20 08:37 Calcium + Vitamin D 250 Mg Tablet PO 500 mg BID [facility] Administration Dextrose/Sodium Chloride 1,000 mls @ 100 mls/hr 08/28/20 21:00 08/31/20 08:38 D51/2ns IVCONT 100 mls/hr .Q10H [facility] Administration Insulin Human Lispro 0 unit 08/28/20 21:00 08/31/20 08:35 Insulin Lispro 100 Unit/Ml 3 Ml Vial SUBCUT Not Given QIDACHS [facility] Protocol Levothyroxine Sodium 150 mcg 08/29/20 06:00 08/31/20 05:51 Levothyroxine Sodium 150 Mcg Tablet PO 150 mcg DAILY@0600 [facility] Administration Montelukast Sodium 10 mg 08/28/20 21:00 08/30/20 20:06 Montelukast Sodium 10 Mg Tablet PO 10 mg BEDTIME [facility] Administration Pantoprazole Sodium 40 mg 08/29/20 06:30 08/31/20 05:51 Pantoprazole Sodium 40 Mg/10 Ml Vial IVPUSH 40 mg BID@0630,1630 [facility] Administration Pharmacy Consult 1 each 08/28/20 19:50 Consult Rx Perform Med Rec MISCELLANE ONCE PRN Consult order Polyethylene Glycol/Electrolytes 240 ml 08/31/20 13:00 Peg 3350/Na Sulf,Bicarb,Cl/Kcl 4,000 Ml Soln.Recon PO 08/31/20 15:41 Q10M [facility] Prazosin HCl 1 mg 08/28/20 21:00 08/30/20 20:05 Prazosin Hcl 1 Mg Capsule PO 1 mg BEDTIME [facility] Administration Protocol Sodium Chloride 3 ml 08/29/20 00:00 08/31/20 07:43 0.9 % Sodium Chloride Flush 3 Ml Syringe IVFLUSH 3 ml QSHIFT [facility] Administration <Christine Delacruz NP - Last Filed: 08/31/20 09:57> Labs CBC & Chem 7: : 08/31/20 05:48 08/31/20 05:48 <Christine Delacruz NP - Last Filed: 08/31/20 09:57> Assessment and Plan (1) Anemia: Status: Acute <Christine Delacruz NP - Last Filed: 08/31/20 09:57> Assessment and Plan: 70-year-old female with a past medical history of hypertension, hyperlipidemia, diabetes, asthma, history of thyroid ablation subsequent hypothyroidism on levothyroxine who was sent to the emergency department by PCP after routine labs revealed hemoglobin of 7.5. Anemia with heme-positive stool/ probable acute blood loss anemia 2 days of BRBPR 2 weeks ago. no active bleeding since. no baseline H/H in system. -s/p transfusion 2U rbc with appropriate rise in H/H -Plan for EGD and colonoscopy on Tuesday -follow H/H - clear liquid diet, NPO after midnight - bowel prep HTN -continue atenolol Hypothyroidism TSH elevated, outpatient follow up -continue Synthroid Morbid obesity BMI 51.8 -weight loss encouraged as this can contribute to worsening of other comorbidities DVT ppx - boots due to anemia full code Attending: Dr. Munguia <Christine Delacruz NP - Last Filed: 08/31/20 09:57> I saw and examined the patient and discussed findings, mangement, and disposition with PA and I agree with the above, except if otherwise stated. 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 She can come off tele <Heber Munguia MD - Last Filed: 08/31/20 14:12>
[2020-08-31 11:41] LABS: Glucose, Whole Blood 161 mg/dL (60-115)
[2020-08-31] MEDS: Insulin Lispro 100 UNIT/ML 3 ML VIAL SUBCUT (11:41)
[2020-08-31 12:00] VITALS: BP 165/70; PULSE 60; RESP 16; TEMP 36; O2SAT 99
[2020-08-31] MEDS: PEG 3350/Na Sulf,Bicarb,Cl/KCL 4,000 ML SOLN.RECON 4000 ML PO (13:39)
[2020-08-31 15:12] VITALS: BP 162/75; PULSE 59; RESP 14; TEMP 36.4; O2SAT 100
[2020-08-31 16:40] LABS: Glucose, Whole Blood 122 mg/dL (60-115)
[2020-08-31 19:59] VITALS: BP 148/63; PULSE 61; RESP 14; TEMP 36.2; O2SAT 100
[2020-08-31 20:43] LABS: Glucose, Whole Blood 116 mg/dL (60-115)
[2020-08-31] MEDS: Prazosin HCL 1 MG CAPSULE PO (22:00)
[2020-08-31] MEDS: Montelukast Sodium 10 MG TABLET PO (22:00)
[2020-09-01] VITALS (12 sets, daily range): BP systolic 114–176; BP diastolic 50–73; PULSE 56–77; RESP 16–18; TEMP 35.5–36.8; O2SAT 96–100
[2020-09-01] MEDS: Pantoprazole Sodium 40 MG/10 ML VIAL IVPUSH (06:11)
[2020-09-01] MEDS: Levothyroxine Sodium 150 MCG TABLET PO (06:11)
[2020-09-01 07:13] LABS: Hematocrit 29.3 % (37-47); Hemoglobin 8.6 g/dl (12.0-16.0); Mean Corpuscular HGB Conc 29.4 g/dl (31.0-35.0); Mean Corpuscular Hemoglobin 22.9 pg (27.0-33.0); Mean Corpuscular Volume 77.9 fL (80-98); Mean Platelet Volume 10.8 fL (9.4-12.3); Platelet Count 278 X10*3/uL (160-400); Red Blood Count 3.76 X10*6/uL (4.20-5.50); Red Cell Distribution Width 19.7 % (11.0-16.0); White Blood Count 9.6 X10*3/uL (4.8-10.8)
[2020-09-01 07:13] LABS: Glucose, Whole Blood 130 mg/dL (60-115)
[2020-09-01] MEDS: atenoloL 50 MG TABLET PO (07:31)
[2020-09-01] MEDS: 0.9 % Sodium Chloride Flush 3 ML SYRINGE IVFLUSH ×2 (07:32→17:08)
[2020-09-01] MEDS: Calcium + Vitamin D 250 MG TABLET 500 MG PO ×2 (07:32→20:43)
[2020-09-01 07:44] LABS: Anion Gap 17 (12-20); Blood Urea Nitrogen 8 mg/dL (9-16); Calcium 7.1 mg/dL (8.4-10.2); Carbon Dioxide 22 mmol/L (22-29); Chloride 106 mmol/L (96-108); Creatinine Clr Calc Pharmacy 69.6; Estimated Glomerular Filt Rate > 60; Glucose Fasting 115 mg/dL (60-99); Potassium 3.5 mmol/L (3.3-5.1); Sodium 141 mmol/L (135-145)
[2020-09-01 11:32] LABS: Glucose, Whole Blood 120 mg/dL (60-115)
--- NOTE | 2020-09-01 14:07 | P.CONAN_ITS ---
[facility] Active Problems Active Problems: All Active Problems (Updated 09/01/20 @ 13:01 by Mirna cordero RN) Hypothyroid (Acute) Dermatitis (Acute) Eczema (Acute) Dyshidrotic eczema (Acute) Cellulitis (Acute) Minimal depression (Acute) Pain of right thumb (Acute) Fatigue (Acute) Anemia (Acute) Acute lower gastrointestinal bleeding (Acute) Anemia (Acute) Diabetes (Acute) Past Medical History Medical History (Updated 09/01/20 @ 13:01 by Mirna Allen RN) Asthma Diabetes HTN (hypertension) Thyroid disease Surgical History Surgical History History of thyroidectomy History of tonsillectomy History of tubal ligation Hx of cholecystectomy Social History Social History Household Members: Spouse Housing: House Do you presently have visiting nurse or other home services: No Alcohol intake: current Alcohol intake frequency: holidays/special occasions only Patient Tobacco Use Status: Never used Tobacco e-Cigarette/Vaping Use: Never Used Use of substances other than those prescribed or required for medical reasons: No Currently Displaying Signs/Symptoms of Drug Intoxication Withdrawal: No Have you been hit, kicked, punched, or otherwise hurt by someone within the past year? If so, by whom?: No Do you feel safe in your current relationship?: Yes Is there a partner from a previous relationship who is making you feel unsafe now?: No Are you made to feel afraid or neglected: No Are you DNR?: No Advance Directives: No Advance Directives Information Provided: No Do you have thoughts of harming others: None Do you have a plan to hurt others: No Plan Recently lost weight without trying: No Nutrition Risks: No Nutritional Risk Patient : No : No Poor oral hygiene: No service: No Current occupational status: retired Meds Allergies Allergy/AdvReac Type Severity Reaction Status Date / Time latex [Latex] Allergy Unknown BLISTERS Verified 08/27/20 15:43 penicillin V Allergy Unknown unknown Verified 08/27/20 15:43 Penicillins Allergy Unknown RASH Verified 08/27/20 15:43 Active Medications: Current Medications Generic Name Dose Route Start Last Admin Trade Name Freq PRN Reason Stop Dose Admin Acetaminophen 650 mg 08/28/20 20:53 Acetaminophen 325 Mg Tablet PO Q6H PRN Pain, Mild (Pain Scale 1-3) Albuterol Sulfate 2 puff 08/28/20 20:54 Albuterol Sulfate 90 Mcg 8 Gm Inhaler INHALE Q6H PRN Shortness Of Breath Or Wheezing Atenolol 50 mg 08/29/20 09:00 09/01/20 07:31 Atenolol 50 Mg Tablet PO 50 mg DAILY [facility] Administration Protocol Calcium Carbonate/Cholecalciferol 500 mg 08/29/20 09:00 09/01/20 07:32 Calcium + Vitamin D 250 Mg Tablet PO 500 mg BID [facility] Administration Insulin Human Lispro 0 unit 08/28/20 21:00 09/01/20 11:40 Insulin Lispro 100 Unit/Ml 3 Ml Vial SUBCUT Not Given QIDACHS [facility] Protocol Levothyroxine Sodium 150 mcg 08/29/20 06:00 09/01/20 06:11 Levothyroxine Sodium 150 Mcg Tablet PO 150 mcg DAILY@0600 [facility] Administration Montelukast Sodium 10 mg 08/28/20 21:00 08/31/20 22:00 Montelukast Sodium 10 Mg Tablet PO 10 mg BEDTIME [facility] Administration Pharmacy Consult 1 each 08/28/20 19:50 Consult Rx Perform Med Rec MISCELLANE ONCE PRN Consult order Prazosin HCl 1 mg 08/28/20 21:00 08/31/20 22:00 Prazosin Hcl 1 Mg Capsule PO 1 mg BEDTIME [facility] Administration Protocol Sodium Chloride 3 ml 08/29/20 00:00 09/01/20 07:32 0.9 % Sodium Chloride Flush 3 Ml Syringe IVFLUSH 3 ml QSHIFT [facility] Administration Home Medications Medication Instructions Recorded Confirmed Last Taken Type albuterol sulfate 90 mcg/actuation 2 puff INHALATION Q6H PRN 03/06/20 08/28/20 Unknown History aerosol inhaler calcium carbonate-vitamin D3 1 cap PO BID 08/28/20 08/28/20 08/28/20 History ibuprofen 600 mg PO TID PRN 08/28/20 08/28/20 08/27/20 History montelukast 10 mg PO BEDTIME 08/28/20 08/28/20 08/27/20 History Exam Exam Date and Time: September 01, 2020 1407 Height,Weight and Vital Signs: Height 5 ft Weight 120.202 kg Last Vital Signs Temp 97.2 F 09/01/20 13:02 Pulse 58 09/01/20 13:02 Resp 16 09/01/20 13:02 BP 149/50 H 09/01/20 13:02 Pulse Ox 99 09/01/20 13:02 Pertinent Lab Results Pertinent Lab Results: Laboratory Tests 08/28/20 08/28/20 08/28/20 19:46 19:47 19:47 WBC RBC Hgb Hct MCV MCH MCHC RDW Plt Count MPV Immature Gran % (Auto) Neut % (Auto) Lymph % (Auto) Upson % (Auto) Eos % (Auto) Baso % (Auto) Lymph # (Auto) Upson # (Auto) Eos # (Auto) Baso # (Auto) Abs Immat Gran (auto) Absolute Neuts (auto) Absolute Nucleated RBC Nucleated RBC % (auto) Sodium Potassium Chloride Carbon Dioxide Anion Gap BUN Creatinine Estim Creat Clear Calc Estimated GFR POC Glucose Random Glucose Fasting Glucose Calcium Magnesium Troponin I High Sens 4.3 Stool Occult Blood COVID-19 ([facility]) Negative COVID-19 Clin Com See Note Blood Type A Positive Antibody Screen NEGATIVE Crossmatch See Detail 08/28/20 08/28/20 08/28/20 19:47 20:07 20:07 WBC 11.5 H RBC 3.64 L Hgb 7.6 L Hct 26.6 L MCV 73.1 L MCH 20.9 L MCHC 28.6 L RDW 17.7 H Plt Count 367 MPV 11.2 Immature Gran % (Auto) 0.6 H Neut % (Auto) 66.1 Lymph % (Auto) 18.6 L Upson % (Auto) 6.6 Eos % (Auto) 7.6 H Baso % (Auto) 0.5 Lymph # (Auto) 2.1 Upson # (Auto) 0.8 Eos # (Auto) 0.9 H Baso # (Auto) 0.1 Abs Immat Gran (auto) 0.07 H Absolute Neuts (auto) 7.6 Absolute Nucleated RBC 0.000 Nucleated RBC % (auto) 0.0 Sodium 139 Potassium 3.8 Chloride 100 Carbon Dioxide 29 Anion Gap 14 BUN 18 H Creatinine 1.06 Estim Creat Clear Calc 60.4 Estimated GFR 52 POC Glucose Random Glucose 121 H Fasting Glucose Calcium 7.9 L Magnesium Troponin I High Sens Stool Occult Blood POSITIVE COVID-19 ([facility]) COVID-19 [facility] Com Blood Type Antibody Screen Crossmatch 08/28/20 08/29/20 08/29/20 21:19 06:39 06:39 WBC 10.1 RBC 4.06 L Hgb 9.1 L Hct 30.8 L MCV 75.9 L MCH 22.4 L MCHC 29.5 L RDW 18.9 H Plt Count 308 MPV 10.6 Immature Gran % (Auto) 0.5 H Neut % (Auto) 67.6 Lymph % (Auto) 16.9 L Upson % (Auto) 7.3 Eos % (Auto) 7.2 H Baso % (Auto) 0.5 Lymph # (Auto) 1.7 Upson # (Auto) 0.7 Eos # (Auto) 0.7 H Baso # (Auto) 0.1 Abs Immat Gran (auto) 0.05 H Absolute Neuts (auto) 6.8 Absolute Nucleated RBC 0.000 Nucleated RBC % (auto) 0.0 Sodium 139 Potassium 3.4 Chloride 100 Carbon Dioxide 28 Anion Gap 14 BUN 16 Creatinine 1.00 Estim Creat Clear Calc 64.0 Estimated GFR 55 POC Glucose 115 Random Glucose 156 H Fasting Glucose Calcium 7.4 L D Magnesium Troponin I High Sens Stool Occult Blood COVID-19 ([facility]) COVID-19 [facility] Blood Type Antibody Screen Crossmatch 08/29/20 08/29/20 08/29/20 06:39 07:10 11:21 WBC RBC Hgb Hct MCV MCH MCHC RDW Plt Count MPV Immature Gran % (Auto) Neut % (Auto) Lymph % (Auto) Upson % (Auto) Eos % (Auto) Baso % (Auto) Lymph # (Auto) Upson # (Auto) Eos # (Auto) Baso # (Auto) Abs Immat Gran (auto) Absolute Neuts (auto) Absolute Nucleated RBC Nucleated RBC % (auto) Sodium Potassium Chloride Carbon Dioxide Anion Gap BUN Creatinine Estim Creat Clear Calc Estimated GFR POC Glucose 158 H 151 H Random Glucose Fasting Glucose Calcium Magnesium 1.6 Troponin I High Sens Stool Occult Blood COVID-19 ([facility]) COVID-19 [facility] Blood Type Antibody Screen Crossmatch 08/29/20 08/29/20 08/30/20 16:27 20:49 07:13 WBC RBC Hgb Hct MCV MCH MCHC RDW Plt Count MPV Immature Gran % (Auto) Neut % (Auto) Lymph % (Auto) Upson % (Auto) Eos % (Auto) Baso % (Auto) Lymph # (Auto) Upson # (Auto) Eos # (Auto) Baso # (Auto) Abs Immat Gran (auto) Absolute Neuts (auto) Absolute Nucleated RBC Nucleated RBC % (auto) Sodium Potassium Chloride Carbon Dioxide Anion Gap BUN Creatinine Estim Creat Clear Calc Estimated GFR POC Glucose 134 H 126 H 161 H Random Glucose Fasting Glucose Calcium Magnesium Troponin I High Sens Stool Occult Blood COVID-19 ([facility]) COVID-19 [employer] Blood Type Antibody Screen Crossmatch 08/30/20 08/30/20 08/30/20 08:41 11:16 16:19 WBC RBC Hgb 8.8 L Hct 29.6 L MCV MCH MCHC RDW Plt Count MPV Immature Gran % (Auto) Neut % (Auto) Lymph % (Auto) Upson % (Auto) Eos % (Auto) Baso % (Auto) Lymph # (Auto) Upson # (Auto) Eos # (Auto) Baso # (Auto) Abs Immat Gran (auto) Absolute Neuts (auto) Absolute Nucleated RBC Nucleated RBC % (auto) Sodium Potassium Chloride Carbon Dioxide Anion Gap BUN Creatinine Estim Creat Clear Calc Estimated GFR POC Glucose 161 H 112 Random Glucose Fasting Glucose Calcium Magnesium Troponin I High Sens Stool Occult Blood COVID-19 ([facility]) COVID-19 [employer] Blood Type Antibody Screen Crossmatch 08/30/20 08/31/20 08/31/20 20:19 05:48 05:48 WBC 9.1 RBC 3.89 L Hgb 8.7 L Hct 29.9 L MCV 76.9 L MCH 22.4 L MCHC 29.1 L RDW 19.5 H Plt Count 282 MPV 10.9 Immature Gran % (Auto) Neut % (Auto) Lymph % (Auto) Upson % (Auto) Eos % (Auto) Baso % (Auto) Lymph # (Auto) Upson # (Auto) Eos # (Auto) Baso # (Auto) Abs Immat Gran (auto) Absolute Neuts (auto) Absolute Nucleated RBC 0.000 Nucleated RBC % (auto) 0.0 Sodium 141 Potassium 3.5 Chloride 105 Carbon Dioxide 26 Anion Gap 14 BUN 15 Creatinine 0.90 Estim Creat Clear Calc 71.1 Estimated GFR > 60 POC Glucose 139 H Random Glucose 123 H Fasting Glucose Calcium 7.3 L Magnesium Troponin I High Sens Stool Occult Blood COVID-19 ([facility]) COVID-19 [facility] Com Blood Type Antibody Screen Crossmatch 08/31/20 08/31/20 08/31/20 07:43 11:37 16:24 WBC RBC Hgb Hct MCV MCH MCHC RDW Plt Count MPV Immature Gran % (Auto) Neut % (Auto) Lymph % (Auto) Upson % (Auto) Eos % (Auto) Baso % (Auto) Lymph # (Auto) Upson # (Auto) Eos # (Auto) Baso # (Auto) Abs Immat Gran (auto) Absolute Neuts (auto) Absolute Nucleated RBC Nucleated RBC % (auto) Sodium Potassium Chloride Carbon Dioxide Anion Gap BUN Creatinine Estim Creat Clear Calc Estimated GFR POC Glucose 124 H 161 H 122 H Random Glucose Fasting Glucose Calcium Magnesium Troponin I High Sens Stool Occult Blood COVID-19 ([facility]) [employer] [facility] Blood Type Antibody Screen Crossmatch 08/31/20 09/01/20 09/01/20 20:34 05:46 05:46 WBC 9.6 RBC 3.76 L Hgb 8.6 L Hct 29.3 L MCV 77.9 L MCH 22.9 L MCHC 29.4 L RDW 19.7 H Plt Count 278 MPV 10.8 Immature Gran % (Auto) Neut % (Auto) Lymph % (Auto) Upson % (Auto) Eos % (Auto) Baso % (Auto) Lymph # (Auto) Upson # (Auto) Eos # (Auto) Baso # (Auto) Abs Immat Gran (auto) Absolute Neuts (auto) Absolute Nucleated RBC 0.000 Nucleated RBC % (auto) 0.0 Sodium 141 Potassium 3.5 Chloride 106 Carbon Dioxide 22 Anion Gap 17 BUN 8 L Creatinine 0.92 Estim Creat Clear Calc 69.6 Estimated GFR > 60 POC Glucose 116 H Random Glucose Fasting Glucose 115 H Calcium 7.1 L Magnesium Troponin I High Sens Stool Occult Blood COVID-19 ([facility]) [employer] [facility] Blood Type Antibody Screen Crossmatch 09/01/20 09/01/20 06:58 11:01 WBC RBC Hgb Hct MCV MCH MCHC RDW Plt Count MPV Immature Gran % (Auto) Neut % (Auto) Lymph % (Auto) Upson % (Auto) Eos % (Auto) Baso % (Auto) Lymph # (Auto) Upson # (Auto) Eos # (Auto) Baso # (Auto) Abs Immat Gran (auto) Absolute Neuts (auto) Absolute Nucleated RBC Nucleated RBC % (auto) Sodium Potassium Chloride Carbon Dioxide Anion Gap BUN Creatinine Estim Creat Clear Calc Estimated GFR POC Glucose 130 H 120 H Random Glucose Fasting Glucose Calcium Magnesium Troponin I High Sens Stool Occult Blood COVID-19 ([facility]) COVID-19 Clin Com Blood Type Antibody Screen Crossmatch Airway Mallampati Class: II TM Dist: >3cm Neck ROM: Full Partial: Upper Heart: rrr Lungs: CtA Assessment and Plan Assessment Anesthesia Assessment: Anesthesia Plan Discussed and Chart Reviewed Final Anesthetic Review NPO: Yes (Sip water with medicine) ASA Class: III Final Preanesthetic Review: No Changes in Pt Med Stat and Consent Obtained/Reviewed Patient Risk: Intermediate Procedure Risk: Intermediate Anesthetic Plan Anesthetic Plan: MAC: Disposition: Standard PACU
--- NOTE | 2020-09-01 16:26 | P.BOP_ITS ---
Brief Operative Note Date of Service: 09/01/20 Pre-op diagnosis: Iron deficiency anemia Post-op diagnosis: other (R/O Celiac disease, Mild GERD, Small hiatal hernia, Diverticulosis, Small internal hemorrhoids) Procedure: EGD with biopsies, Colonoscopy to the cecum and TI Surgeon: Cory Sweeney Anesthesia: MAC Was an Supply Chain Design Manager used for this Procedure?: No Estimated blood loss (mL): 3.0 Pathology: other (A. Descending duodenum B. EG Junction at 38cm) Condition: stable Disposition: PACU
--- NOTE | 2020-09-01 16:28 | PM.EVENT ---
Event Note Date of Service: 09/01/20 Event Note: GI-Full note dictated EGD- 1. Small hiatal hernia and mild changes of reflux-biopsied EG Junction x 3-no esophagitis 2. Remainder of exam WNL--biopsied descending duodenum, R/O celiac disease Colonoscopy to the cecum and TI- 1. Sigmoid diverticulosis 2. Internal hemorrhoids Imp: No findings to explain her Iron deficiency anemia. Rec: Advance diet, check path, start po Iron, F/U labs in AM. She will need an outpatient small bowel video capsule study. She could be discharged by tomorrow if stable. Will arrange for outpatient follow up. D/W patient. Thanks.
--- NOTE | 2020-09-01 16:40 | P.PNIM_ITS ---
Subjective Subjective Date of Service: 09/01/20 Interval History: follow up GI bleed no further bleeding no abdominal pain EGD and colonoscopy today Physical Exam Vital Signs: Vital Signs: Last Vital Signs Temp 98 F 09/01/20 16:28 Pulse 77 09/01/20 16:28 Resp 16 09/01/20 16:28 BP 114/54 L 09/01/20 16:28 Pulse Ox 98 09/01/20 16:28 Body Mass Index 51.7 Appearing in no acute distress lung sounds are clear to auscultation heart regular rate rhythm, clear S1, S2 positive bowel sounds, abdomen is soft, nontender neuro patient is alert x3, no focal deficits Objective Data Current Medications Generic Name Dose Route Start Last Admin Trade Name Freq PRN Reason Stop Dose Admin Acetaminophen 650 mg 08/28/20 20:53 Acetaminophen 325 Mg Tablet PO Q6H PRN Pain, Mild (Pain Scale 1-3) Albuterol Sulfate 2 puff 08/28/20 20:54 Albuterol Sulfate 90 Mcg 8 Gm Inhaler INHALE Q6H PRN Shortness Of Breath Or Wheezing Atenolol 50 mg 08/29/20 09:00 09/01/20 07:31 Atenolol 50 Mg Tablet PO 50 mg DAILY [facility] Administration Protocol Calcium Carbonate/Cholecalciferol 500 mg 08/29/20 09:00 09/01/20 07:32 Calcium + Vitamin D 250 Mg Tablet PO 500 mg BID [facility] Administration Ferrous Sulfate 324 mg 09/01/20 16:36 Ferrous Sulfate 324 Mg Tablet.Dr GAFFNEY QAM [facility] Lactated Ringer's 1,000 mls @ 50 mls/hr 09/01/20 14:15 Lr IVCONT .Q20H [facility] Insulin Human Lispro 0 unit 08/28/20 21:00 09/01/20 11:40 Insulin Lispro 100 Unit/Ml 3 Ml Vial SUBCUT Not Given QIDACHS [facility] Protocol Levothyroxine Sodium 150 mcg 08/29/20 06:00 09/01/20 06:11 Levothyroxine Sodium 150 Mcg Tablet PO 150 mcg DAILY@0600 [facility] Administration Montelukast Sodium 10 mg 08/28/20 21:00 08/31/20 22:00 Montelukast Sodium 10 Mg Tablet PO 10 mg BEDTIME [facility] Administration Ondansetron HCl 4 mg 09/01/20 15:25 Ondansetron Hcl 4 Mg/2 Ml Vial IVPUSH ONCE PRN Nausea and Vomiting Pharmacy Consult 1 each 08/28/20 19:50 Consult Rx Perform Med Rec MISCELLANE ONCE PRN Consult order Prazosin HCl 1 mg 08/28/20 21:00 08/31/20 22:00 Prazosin Hcl 1 Mg Capsule PO 1 mg BEDTIME [facility] Administration Protocol Sodium Chloride 3 ml 08/29/20 00:00 09/01/20 07:32 0.9 % Sodium Chloride Flush 3 Ml Syringe IVFLUSH 3 ml QSHIFT [facility] Administration Labs CBC & Chem 7: 09/01/20 05:46 09/01/20 05:46 Labs: Laboratory Results - last 24 hr 08/31/20 08/31/20 09/01/20 16:24 20:34 05:46 WBC 9.6 RBC 3.76 L Hgb 8.6 L Hct 29.3 L MCV 77.9 L MCH 22.9 L MCHC 29.4 L RDW 19.7 H Plt Count 278 MPV 10.8 Absolute Nucleated RBC 0.000 Nucleated RBC % (auto) 0.0 Sodium Potassium Chloride Carbon Dioxide Anion Gap BUN Creatinine Estim Creat Clear Calc Estimated GFR POC Glucose 122 H 116 H Fasting Glucose Calcium 09/01/20 09/01/20 09/01/20 05:46 06:58 11:01 WBC RBC Hgb Hct MCV MCH MCHC RDW Plt Count MPV Absolute Nucleated RBC Nucleated RBC % (auto) Sodium 141 Potassium 3.5 Chloride 106 Carbon Dioxide 22 Anion Gap 17 BUN 8 L Creatinine 0.92 Estim Creat Clear Calc 69.6 Estimated GFR > 60 POC Glucose 130 H 120 H Fasting Glucose 115 H Calcium 7.1 L Assessment and Plan (1) Hypothyroid: Status: Acute Assessment and Plan: 70-year-old female with a past medical history of hypertension, hyperlipidemia, diabetes, asthma, history of thyroid ablation subsequent hypothyroidism on levothyroxine who was sent to the emergency department by PCP after routine labs revealed hemoglobin of 7.5. Anemia with heme-positive stool/ probable acute blood loss anemia 2 days of BRBPR 2 weeks ago. no active bleeding since. no baseline H/H in s ystem. -s/p transfusion 2U rbc with appropriate rise in H/H -EGD showed hiatal hernia and changes of reflux, no esophagitis. [place] diverticulosis, internal hemorrhoids -advance diet -oral iron -hh in the morning -o/p capsule study HTN -continue atenolol Hypothyroidism TSH elevated, outpatient follow up -continue Synthroid Morbid obesity BMI 51.8 -weight loss encouraged as this can contribute to worsening of other comorbidities DISPO: Home tomorrow if medically stable DVT ppx - boots due to anemia full code Attending: Dr. Torrez
[2020-09-01] MEDS: Ferrous Sulfate 324 MG TABLET.DR PO (17:07)
[2020-09-01 17:09] LABS: Glucose, Whole Blood 109 mg/dL (60-115)
[2020-09-01] MEDS: Lactated Ringers 1,000 ML 50 ML IVCONT (17:09)
[2020-09-01 20:18] LABS: Glucose, Whole Blood 127 mg/dL (60-115)
[2020-09-01] MEDS: Prazosin HCL 1 MG CAPSULE PO (20:43)
[2020-09-01] MEDS: Montelukast Sodium 10 MG TABLET PO (20:43)
[2020-09-02 03:09] VITALS: BP 116/56; PULSE 59; RESP 18; TEMP 36.4; O2SAT 99
[2020-09-02] MEDS: Levothyroxine Sodium 150 MCG TABLET PO (05:08)
[2020-09-02 06:22] LABS: MANUAL DIFF FLAG NO
[2020-09-02 06:56] LABS: Basophils Percent Auto 0.5 % (0-2); Eosinophils Absolute Auto 0.7 X10*3/uL (0.0-0.4); Eosinophils Percent Auto 8.3 % (0-4); Hematocrit 29.7 % (37-47); Hemoglobin 8.8 g/dl (12.0-16.0); Imm Gran Abs Auto 0.03 X10*3/uL (0.00-0.03); Imm Gran Pct Auto 0.4 % (0.0-0.4); Lymphocytes Absolute Auto 1.8 X10*3/uL (1.2-4.9); Lymphocytes Percent Auto 21.1 % (20-40); Mean Corpuscular HGB Conc 29.6 g/dl (31.0-35.0); Mean Corpuscular Hemoglobin 22.8 pg (27.0-33.0); Mean Corpuscular Volume 76.9 fL (80-98); Mean Platelet Volume 11.2 fL (9.4-12.3); Monocytes Absolute Auto 0.5 X10*3/uL (0.1-1.2); Monocytes Percent Auto 5.4 % (2-11); Neutrophils Absolute Auto 5.5 X10*3/uL (2.0-8.3); Neutrophils Percent Auto 64.3 % (45-73); Platelet Count 301 X10*3/uL (160-400); Red Blood Count 3.86 X10*6/uL (4.20-5.50); White Blood Count 8.5 X10*3/uL (4.8-10.8)
[2020-09-02 06:58] LABS: Anion Gap 14 (12-20); Blood Urea Nitrogen 9 mg/dL (9-16); Calcium 7.3 mg/dL (8.4-10.2); Carbon Dioxide 25 mmol/L (22-29); Chloride 107 mmol/L (96-108); Creatinine Clr Calc Pharmacy 62.8; Estimated Glomerular Filt Rate 54; Glucose Fasting 112 mg/dL (60-99); Potassium 3.7 mmol/L (3.3-5.1); Sodium 142 mmol/L (135-145)
[2020-09-02 07:09] VITALS: BP 134/67; PULSE 61; RESP 20; TEMP 36.6; O2SAT 97
[2020-09-02 07:14] LABS: Glucose, Whole Blood 116 mg/dL (60-115)
--- NOTE | 2020-09-02 08:27 | PM.DS ---
DS: Providers Provider Date of Service: 09/02/20 <Christine Delacruz NP - Last Filed: 09/02/20 12:53> Date of admission: 08/28/20 20:53 <Christine Delacruz NP - Last Filed: 09/02/20 12:53> Date of discharge: 09/02/20 <Christine Delacruz NP - Last Filed: 09/02/20 12:53> Primary care physician: James William [facility] <Christine Delacruz NP - Last Filed: 09/02/20 12:53> Admitting clinician: Nabil Dixon <Christine Delacruz NP - Last Filed: 09/02/20 12:53> Attending physician on admission: Nabil Dixon <Christine Delacruz NP - Last Filed: 09/02/20 12:53> Consults: 08/28/20 20:54 Consult to Gastroenterology Routine Consulting Provider: Cory Padron Reason for consultation: anemia <Christine Delacruz NP - Last Filed: 09/02/20 12:53> Attending physician on discharge: Chacho Torrez <Christine Delacruz NP - Last Filed: 09/02/20 12:53> Discharging clinician: Christine Delacruz <Christine Delacruz NP - Last Filed: 09/02/20 12:53> DS: Diagnosis Discharge Diagnosis (1) Anemia: Status: Acute <Christine Delacruz NP - Last Filed: 09/02/20 12:53> (2) Acute lower gastrointestinal bleeding: Status: Acute <Christine Delacruz NP - Last Filed: 09/02/20 12:53> DS: Medications Discharge Medications Home Medications: Home Medications Medication Instructions Recorded Confirmed albuterol sulfate 90 mcg/actuation 2 puff INHALATION Q6H PRN 03/06/20 08/28/20 aerosol inhaler calcium carbonate-vitamin D3 1 cap PO BID 08/28/20 08/28/20 montelukast 10 mg PO BEDTIME 08/28/20 08/28/20 Previous Rx's Medication Instructions Recorded hydrochlorothiazide 25 mg tablet 25 mg PO DAILY 30 Days #30 tab 07/29/20 metformin 1,000 mg tablet 1,000 mg PO BID 30 Days #60 tab 07/29/20 atenolol 50 mg tablet 50 mg PO DAILY #90 tab 07/30/20 levothyroxine 150 mcg tablet 150 mcg PO DAILY #90 tab 08/11/20 prazosin 1 mg capsule 1 mg PO BEDTIME 30 Days #30 cap 08/27/20 ferrous sulfate 324 mg PO DAILY #30 tab 09/02/20 <Christine Delacruz NP - Last Filed: 09/02/20 12:53> DS: Summary Hospital Course Hospital Course: HP as per admitting provider 70-year-old female with a past medical history of hypertension, hyperlipidemia, diabetes, asthma, history of thyroid ablation subsequent hypothyroidism on levothyroxine presented to the hospital with a chief complaint of anemia. Patient reported that she had a routine labs done by the PCP and noted to have hemoglobin of 7.5 subsequently recommended to go to the hospital for further evaluation. Patient reported that couple weeks ago she has rectal bleeding. Denies any further episodes of alert. Denies any nausea vomiting. Mentioned that she takes ibuprofen. Denies any GI or symptoms.Denies any chest pain palpitations lightheadedness or dizziness. Patient reports she has shortness of breath and dyspnea on exertion on but not too far from her baseline. Review of all other systems is negative except mentioned above . Anemia. No further bleeding throughout the admission. Transfuse 2 units of packed red blood cells with appropriate rise in hemoglobin and hematocrit.Had EGD and biopsy, found small hiatal hernia with reflux changes, no esophagitis. Colonoscopy showed sigmoid diverticulosis with internal hemorrhoids however no findings for iron deficiency anemia. Plan is to follow up with an outpatient for a video capsule study. Hypertension . Stable blood pressure throughout admission continue home medications. Attending Attestation: Patient seen and examined independently and I was present during pizarro portion of E/M service. Agree with Cammie Delacruz NP's history, physical, assessment, and plan. <Christine Delacruz NP - Last Filed: 09/02/20 12:53> Time Spent with Patient Time attestation: Total time spent providing and/or coordinating discharge services: <Christine Delacruz NP - Last Filed: 09/02/20 12:53> Discharge coordination time: Greater than 30 minutes <Christine Delacruz NP - Last Filed: 09/02/20 12:53> Quality: Stroke Does the patient have a stroke diagnosis?: No <Christine Delacruz NP - Last Filed: 09/02/20 12:53> Physical Exam Vital Signs: Vital Signs: Last Vital Signs Temp 98 F 09/02/20 07:09 Pulse 61 09/02/20 07:09 Resp 20 09/02/20 07:09 BP 134/67 09/02/20 07:09 Pulse Ox 97 09/02/20 07:09 Body Mass Index 51.7 <Christine Delacruz NP - Last Filed: 09/02/20 12:53> Appearing in no acute distress head is normocephalic atraumatic eyes pupils are PERRLA sclera is anicteric mouth throat mucous membranes are intact and moist neck is supple no lymphadenopathy, no JVD noted lung sounds are clear to auscultation heart regular rate rhythm, clear S1, S2 positive bowel sounds, abdomen is soft, nontender neuro patient is alert x3, no focal deficits <Christine Delacruz NP - Last Filed: 09/02/20 12:53> DS: Data Data Completed and Pending Pending studies at discharge: Pending at discharge 09/01/20 15:46 Surgical [PTH] Routine <Christine Delacruz NP - Last Filed: 09/02/20 12:53> Labs on day of discharge: Laboratory Results - last 24 hr 09/01/20 09/01/20 09/01/20 11:01 17:06 20:15 WBC RBC Hgb Hct MCV MCH MCHC RDW Plt Count MPV Immature Gran % (Auto) Neut % (Auto) Lymph % (Auto) [place] % (Auto) Eos % (Auto) Baso % (Auto) Lymph # (Auto) [place] # (Auto) Eos # (Auto) Baso # (Auto) Abs Immat Gran (auto) Absolute Neuts (auto) Absolute Nucleated RBC Nucleated RBC % (auto) Sodium Potassium Chloride Carbon Dioxide Anion Gap BUN Creatinine Estim Creat Clear Calc Estimated GFR POC Glucose 120 H 109 127 H Fasting Glucose Calcium 09/02/20 09/02/20 09/02/20 05:17 05:17 07:09 WBC 8.5 RBC 3.86 L Hgb 8.8 L Hct 29.7 L MCV 76.9 L MCH 22.8 L MCHC 29.6 L RDW 20.0 H Plt Count 301 MPV 11.2 Immature Gran % (Auto) 0.4 Neut % (Auto) 64.3 Lymph % (Auto) 21.1 [place] % (Auto) 5.4 Eos % (Auto) 8.3 H Baso % (Auto) 0.5 Lymph # (Auto) 1.8 [place] # (Auto) 0.5 Eos # (Auto) 0.7 H Baso # (Auto) 0.0 Abs Immat Gran (auto) 0.03 Absolute Neuts (auto) 5.5 Absolute Nucleated RBC 0.000 Nucleated RBC % (auto) 0.0 Sodium 142 Potassium 3.7 Chloride 107 Carbon Dioxide 25 Anion Gap 14 BUN 9 Creatinine 1.02 Estim Creat Clear Calc 62.8 Estimated GFR 54 POC Glucose 116 H Fasting Glucose 112 H Calcium 7.3 L <Christine Delacruz NP - Last Filed: 09/02/20 12:53> Discharge Plan Discharge Anticipated Discharge Date/Time: 09/02/20 08:24 <Christine Delacruz NP - Last Filed: 09/02/20 12:53> Patient Disposition: Home, Self-Care <Christine Delacruz NP - Last Filed: 09/02/20 12:53> Discharge Diagnosis: Anemia GI bleed <Christine Delacruz NP - Last Filed: 09/02/20 12:53> Anemia GI bleed <Chacho Torrez MD - Last Filed: 09/02/20 16:18> Referrals: James William FNP- [Primary Care Provider] - 1 Week Cory Padron [Physician] - 1 Week (capsule study ) <Christine Delacruz NP - Last Filed: 09/02/20 12:53> Discharge Medications: New ferrous sulfate 324 mg (65 mg iron) Tablet,Delayed Release (Dr/Ec) 324 mg PO DAILY Qty: 30 RF: 0 Continued metformin 1,000 mg tablet 1,000 mg PO BID 30 Days Qty: 60 RF: 4 hydrochlorothiazide 25 mg tablet 25 mg PO DAILY 30 Days Qty: 30 RF: 4 atenolol 50 mg tablet 50 mg PO DAILY Qty: 90 RF: 0 levothyroxine 150 mcg tablet 150 mcg PO DAILY Qty: 90 RF: 0 montelukast 10 mg tablet 10 mg PO BEDTIME RF: 0 calcium carbonate-vitamin D3 600 mg(1,500mg) -400 unit capsule 1 cap PO BID RF: 0 albuterol sulfate [ProAir HFA] 90 mcg/actuation HFA aerosol inhaler 2 puff inhalation Q6H PRN (Reason: Shortness Of Breath Or Wheezing) RF: 0 prazosin 1 mg capsule 1 mg PO BEDTIME 30 Days Qty: 30 RF: 0 Discontinued ibuprofen 600 mg tablet 600 mg PO TID PRN (Reason: Pain) RF: 0 <Christine Delacruz NP - Last Filed: 09/02/20 12:53> Discharge Orders: Discharge Order (Routine); Ordered 09/02/20 Ordered By: Christine Delacruz <Christine Delacruz NP - Last Filed: 09/02/20 12:53> Diet: advance to usual diet <Christine Delacruz NP - Last Filed: 09/02/20 12:53> advance to usual diet <Chacho Torrez MD - Last Filed: 09/02/20 16:18> Activity on Discharge: As tolerated <Christine Delacruz NP - Last Filed: 09/02/20 12:53> As tolerated <Chacho Torrez MD - Last Filed: 09/02/20 16:18> Stand Alone Forms: Patient Portal Discharge page <Christine Delacruz NP - Last Filed: 09/02/20 12:53> Care Plan Goals: Resolution of anemia No further gastrointestinal bleeding bleeding <Christine Delacruz NP - Last Filed: 09/02/20 12:53> Health Concerns: Anemia Gastrointestinal bleeding <Christine Delacruz NP - Last Filed: 09/02/20 12:53> Plan of Treatment: follow-up with primary care provider as needed take iron supplementation as prescribed follow-up with Dr. padron, Gastroenterology <Christine Delacruz NP - Last Filed: 09/02/20 12:53> Assessment: see discharge summary <Christine Delacruz NP - Last Filed: 09/02/20 12:53> Discharge Date/Time: 09/02/20 10:30 <Christine Delacruz NP - Last Filed: 09/02/20 12:53>
[2020-09-02 08:30] VITALS: PULSE 67
[2020-09-02] MEDS: atenoloL 50 MG TABLET PO (08:30)
[2020-09-02] MEDS: Calcium + Vitamin D 250 MG TABLET 500 MG PO (08:30)
[2020-09-02] MEDS: Ferrous Sulfate 324 MG TABLET.DR PO (08:31)
[2020-09-02 08:44] LABS: Iron 91 mcg/dL (30-160); Percent Iron Saturation 24 % (15-50); Total Iron Binding Capacity 387 mcg/dL (228-428); Unsaturated Iron Binding 296 ug/dL
[2020-09-02 09:04] LABS: Ferritin 7 ng/mL (10-250)
[2020-09-02 09:26] LABS: Folate 13.2 ng/mL (> or = 4.0); Vitamin B12 518 pg/mL (200-900)
--- NOTE | 2020-09-02 09:36 | MHC.CM.PN ---
imm updated pt dcd home no wsjkilled servceis orderd by
--- NOTE | 2020-09-02 14:43 | HO.POSTANES ---
Post Anesthesia Evaluation Post Anesthesia Evaluation Vital Signs: Vital Signs Temp Pulse Resp BP Pulse Ox 09/02/20 08:30 67 09/02/20 07:09 98 F 61 20 134/67 97 09/02/20 03:09 97.5 F 59 18 116/56 L 99 Anesthesia: Monitored Mental Status: Awake Pain Control: Satisfactory Nausea/Vomiting: None Hydration: Adequate Anesthesia-Related Issues: No Anes. Related Issues
--- NOTE | 2020-09-05 10:56 | OP_ITS ---
SURGEON: Cory Sweeney MD INDICATIONS: The patient presents for evaluation of iron-deficiency anemia. Full consent has been obtained from her for this, including risks of bleeding and perforation. PREOPERATIVE DIAGNOSIS: Iron deficiency anemia. POSTOPERATIVE DIAGNOSIS: PROCEDURE PERFORMED: Esophagogastroduodenoscopy with biopsies, and colonoscopy to cecum and terminal ileum. ESTIMATED BLOOD LOSS: COMPLICATIONS: ANESTHESIA: Monitored anesthesia care. ASSISTANTS: SPECIMENS: POSTOPERATIVE DIAGNOSES: Iron deficiency anemia, small hiatal hernia, mild gastroesophageal reflux, rule out celiac disease, diverticulosis, and internal hemorrhoids. DESCRIPTION OF PROCEDURE: The patient was placed in the left lateral decubitus position. The Olympus video gastroscope was passed in the posterior oropharynx and upper esophagus under direct vision. The scope was passed slowly into the distal esophagus. The gastroesophageal junction appeared at 38 cm. There was a very slight irregularity consistent with reflux, but no esophagitis, no definitive evidence of Epperson's mucosa. The scope entered into the stomach. There was a small hiatal hernia. The scope was advanced to the pylorus and the duodenum was cannulated to the descending portion. The duodenum including the bulb appeared normal without mass or ulceration. Biopsies were obtained from the second and third portions of duodenum. The scope was withdrawn back into the stomach. The gastric antrum and body appeared normal with good peristalsis. The scope was retroflexed visualizing the proximal stomach carefully, which appeared normal, without any sign of mass or ulceration. The scope was straightened out and withdrawn back into the esophagus. Biopsies were obtained at the EG junction at 38 cm. Proximal to this, the esophageal mucosa appeared normal. The scope was withdrawn from the patient. She was turned around for the colonoscopy. The digital rectal exam revealed no abnormalities other than some external hemorrhoids. The Olympus video pediatric colonoscope was entered into the rectum and advanced easily to the cecum. Once in the cecum, I did identify normal-appearing cecal pouch with appendiceal orifice and a normal-appearing ileocecal valve. The terminal ileum was cannulated and appeared normal. The scope was withdrawn back in the colon. The entire cecum and ileocecal valve appeared normal. The scope was slowly withdrawn assessing all mucosal surfaces carefully. Preparation was excellent. I did not visualize any sign of polyps, colitis, nor angiodysplasia. There was a mild amount of sigmoid diverticulosis. In the rectum, scope was retroflexed visualizing small internal hemorrhoids, but no other pathology. The rectal mucosa appeared normal. The scope was straightened out and withdrawn from the patient. She tolerated the procedure well and was returned to the recovery area in stable condition. IMPRESSION: 1. Small hiatal hernia, mild gastroesophageal reflux. 2. Rule out celiac disease. 3. Mild diverticulosis. 4. Internal and external hemorrhoids. PLAN: The results of the biopsies will be checked. Her diet will be advanced. She will start oral iron supplements. She will have followup laboratories in the morning and if stable, she could be discharged from my standpoint. She will need outpatient followup with a small bowel video capsule study given her significant anemia without any clear explanation thus far. She should avoid all aspirin and NSAIDs long-term as well. This has been discussed with her. MD YVON Bardales/EVERTON / [phone]
== END 2020-09-02 10:30 | disposition home or self-care (01) | DRG 378 ==
LOC: HO.ED 17:04 → HO.EDOVER 21:25 → HO.IMC 23:13
PROVIDERS: Internal Medicine; Nurse Practitioner Acute Care; Physician Assistant; Admitting Provider Hospitalist; Emergency Provider Emergency Medicine; PCP Nurse Practitioner Family; Visit Provider Family Medicine
PROC: 0DB98ZX Excision of Duodenum, Via Natural or Artificial Opening Endoscopic, Diagnostic (ICD-10-PCS; principal; 2020-09-01 13:30)
DX: K57.31 Diverticulosis of large intestine without perforation or abscess with bleeding (principal); D62 Acute posthemorrhagic anemia; Z68.43 Body mass index [BMI] 50.0-59.9, adult; E03.9 Hypothyroidism, unspecified; E11.9 Type 2 diabetes mellitus without complications; I10 Essential (primary) hypertension; E66.01 Morbid (severe) obesity due to excess calories; E78.5 Hyperlipidemia, unspecified; J45.909 Unspecified asthma, uncomplicated; K21.9 Gastro-esophageal reflux disease without esophagitis; K64.8 Other hemorrhoids; K90.0 Celiac disease; K44.9 Diaphragmatic hernia without obstruction or gangrene; Z20.822 Contact with and (suspected) exposure to COVID-19; Z88.0 Allergy status to penicillin; Z79.84 Long term (current) use of oral hypoglycemic drugs; Z79.890 Hormone replacement therapy; Z79.899 Other long term (current) drug therapy
CPT/HCPCS: 36415; 80048; 80053; 82272; 82607; 82728; 82746; 82947; 83540; 83735; 84439; 84443; 84484; 85014; 85018; 85025; 85027; 86850; 86900; 86901; 86923; 87635; 88305; 93005; 99285; J1940; P9016

== ENCOUNTER 2020-09-18 09:54 | Outpatient (REF) | payer MEDICARE, SELFPAY ==
[2020-09-18 11:37] LABS: MANUAL DIFF FLAG NO
[2020-09-18 12:01] LABS: Alanine Aminotransferase 14 U/L (0-31); Albumin Level 4.1 g/dL (3.5-5.0); Alkaline Phosphatase 59 U/L (39-117); Anion Gap 14 (12-20); Aspartate Amino Transferase 18 U/L (5-31); Bilirubin Total 0.6 mg/dL (0.0-1.0); Blood Urea Nitrogen 13 mg/dL (9-16); Calcium 9.2 mg/dL (8.4-10.2); Carbon Dioxide 30 mmol/L (22-29); Chloride 100 mmol/L (96-108); Estimated Glomerular Filt Rate 58; Glucose Random 135 mg/dL (60-115); Potassium 4.4 mmol/L (3.3-5.1); Sodium 140 mmol/L (135-145); Total Protein 7.3 g/dL (6.5-8.0)
[2020-09-18 12:05] LABS: Basophils Absolute Auto 0.1 X10*3/uL (0.0-0.2); Basophils Percent Auto 0.8 % (0-2); Eosinophils Absolute Auto 0.5 X10*3/uL (0.0-0.4); Eosinophils Percent Auto 4.5 % (0-4); Hematocrit 35.8 % (37-47); Hemoglobin 10.7 g/dl (12.0-16.0); Imm Gran Abs Auto 0.06 X10*3/uL (0.00-0.03); Imm Gran Pct Auto 0.6 % (0.0-0.4); Immature Retic Fraction 19.7 % (3.0-15.9); Lymphocytes Percent Auto 20.3 % (20-40); Mean Corpuscular HGB Conc 29.9 g/dl (31.0-35.0); Mean Corpuscular Hemoglobin 23.2 pg (27.0-33.0); Mean Corpuscular Volume 77.5 fL (80-98); Mean Platelet Volume 11.6 fL (9.4-12.3); Monocytes Absolute Auto 0.6 X10*3/uL (0.1-1.2); Monocytes Percent Auto 5.6 % (2-11); Neutrophils Absolute Auto 6.8 X10*3/uL (2.0-8.3); Neutrophils Percent Auto 68.2 % (45-73); Platelet Count 355 X10*3/uL (160-400); Red Blood Count 4.62 X10*6/uL (4.20-5.50); Red Cell Distribution Width 20.9 % (11.0-16.0); Reticulocytes Absolute 0.046 X10*6/uL (0.026-0.095)
== END 2020-09-18 09:55 | disposition home or self-care (01) ==
LOC: HO.HMGCLDS 09:54
PROVIDERS: PCP Nurse Practitioner Family; Visit Provider Nurse Practitioner Family
DX: D64.9 Anemia, unspecified (principal)
CPT/HCPCS: 36415; 80053; 85025; 85045

== ENCOUNTER 2020-09-25 08:37 | Outpatient (REF) | payer MEDICARE, SELFPAY ==
[2020-09-25 11:16] LABS: MANUAL DIFF FLAG NO
[2020-09-25 11:27] LABS: Basophils Absolute Auto 0.1 X10*3/uL (0.0-0.2); Basophils Percent Auto 0.5 % (0-2); Eosinophils Absolute Auto 0.3 X10*3/uL (0.0-0.4); Eosinophils Percent Auto 3.4 % (0-4); Hemoglobin 10.2 g/dl (12.0-16.0); Imm Gran Abs Auto 0.06 X10*3/uL (0.00-0.03); Imm Gran Pct Auto 0.6 % (0.0-0.4); Lymphocytes Absolute Auto 1.9 X10*3/uL (1.2-4.9); Lymphocytes Percent Auto 19.2 % (20-40); Mean Corpuscular Hemoglobin 23.6 pg (27.0-33.0); Mean Corpuscular Volume 78.5 fL (80-98); Mean Platelet Volume 11.6 fL (9.4-12.3); Monocytes Absolute Auto 0.6 X10*3/uL (0.1-1.2); Neutrophils Absolute Auto 7.1 X10*3/uL (2.0-8.3); Neutrophils Percent Auto 70.3 % (45-73); Platelet Count 289 X10*3/uL (160-400); Red Blood Count 4.33 X10*6/uL (4.20-5.50); Red Cell Distribution Width 21.1 % (11.0-16.0)
[2020-09-25 11:50] LABS: Iron 44 mcg/dL (30-160); Percent Iron Saturation 10 % (15-50); Total Iron Binding Capacity 434 mcg/dL (228-428); Unsaturated Iron Binding 390 ug/dL
[2020-09-25 12:12] LABS: Ferritin 9 ng/mL (10-250)
[2020-09-26 14:27] LABS: Immunoglobulin A 207 mg/dL (70-320)
[2020-09-29 15:16] LABS: Gliadin Deamidated IgA Ab 3 Units; Gliadin Deamidated IgG Ab 3 Units
[2020-09-30 21:56] LABS: Endomysial IgA Antibody Negative (Negative); Transglutaminase Ab IgG 1 U/mL; Transglutaminase IgA 1 U/mL
== END 2020-09-25 08:38 | disposition home or self-care (01) ==
LOC: HO.HMGCLDS 08:37
PROVIDERS: PCP Nurse Practitioner Family; Visit Provider Internal Medicine
DX: D50.0 Iron deficiency anemia secondary to blood loss (chronic) (principal); R19.5 Other fecal abnormalities
CPT/HCPCS: 36415; 82728; 82784; 83516; 83540; 85025; 86255; 86256

== ENCOUNTER → 2020-10-14 08:09 | Outpatient (BNVA) | payer MEDICARE, SELFPAY | PROVIDERS: Referring Provider Nurse Practitioner Family; Visit Provider Internal Medicine Gastroenterology | DX: K92.2 Gastrointestinal hemorrhage, unspecified (principal); D64.9 Anemia, unspecified | CPT/HCPCS: 99212 ==

== ENCOUNTER → 2020-10-20 08:09 | Outpatient (BNVA) | payer MEDICARE, SELFPAY | PROVIDERS: Referring Provider Nurse Practitioner Family; Visit Provider Internal Medicine Gastroenterology | DX: K29.70 Gastritis, unspecified, without bleeding (principal); K29.80 Duodenitis without bleeding | CPT/HCPCS: 91110 ==

== ENCOUNTER 2020-11-10 08:48 | Outpatient (REF) | payer MEDICARE, SELFPAY ==
[2020-11-11 11:56] LABS: H Pylori Breath Test NOT DETECTED (NOT DETECTED)
== END 2020-11-10 08:49 | disposition home or self-care (01) ==
LOC: HO.LNP 08:48
PROVIDERS: Visit Provider Internal Medicine Gastroenterology
DX: Z87.19 Personal history of other diseases of the digestive system (principal)
CPT/HCPCS: 83013

== ENCOUNTER → 2020-11-25 10:07 | Outpatient (BNVA) | payer MEDICARE, SELFPAY | PROVIDERS: PCP Nurse Practitioner Family; Visit Provider Internal Medicine Gastroenterology | DX: D64.9 Anemia, unspecified (principal) | CPT/HCPCS: Q3014 ==

== ENCOUNTER 2020-12-02 08:42 | Outpatient (REF) | payer MEDICARE, SELFPAY ==
[2020-12-02 11:25] LABS: MANUAL DIFF FLAG NO
[2020-12-02 11:32] LABS: Appearance Urine CLOUDY; Color Urine YELLOW; Glucose Urine UA NEG (NEG); Leukocyte Esterase Urine 1+ (NEG); Nitrite Urine NEG (NEG); UACC Culture Trigger YES; Urine Blood NEG (NEG); Urine Ketones NEG (NEG); Urine Protein NEG (NEG-TRACE)
[2020-12-02 11:39] LABS: Basophils Percent Auto 0.4 % (0-2); Eosinophils Absolute Auto 0.3 X10*3/uL (0.0-0.4); Eosinophils Percent Auto 3.4 % (0-4); Hematocrit 33.9 % (37-47); Hemoglobin 10.2 g/dl (12.0-16.0); Imm Gran Abs Auto 0.05 X10*3/uL (0.00-0.03); Imm Gran Pct Auto 0.5 % (0.0-0.4); Lymphocytes Absolute Auto 2.1 X10*3/uL (1.2-4.9); Mean Corpuscular HGB Conc 30.1 g/dl (31.0-35.0); Mean Corpuscular Hemoglobin 24.8 pg (27.0-33.0); Mean Corpuscular Volume 82.3 fL (80-98); Mean Platelet Volume 11.2 fL (9.4-12.3); Monocytes Absolute Auto 0.6 X10*3/uL (0.1-1.2); Neutrophils Absolute Auto 6.4 X10*3/uL (2.0-8.3); Neutrophils Percent Auto 67.7 % (45-73); Platelet Count 292 X10*3/uL (160-400); Red Blood Count 4.12 X10*6/uL (4.20-5.50); Red Cell Distribution Width 16.6 % (11.0-16.0); White Blood Count 9.4 X10*3/uL (4.8-10.8)
[2020-12-02 11:46] LABS: Iron 29 mcg/dL (30-160); Percent Iron Saturation 8 % (15-50); Total Iron Binding Capacity 369 mcg/dL (228-428); Unsaturated Iron Binding 340 ug/dL
[2020-12-02 11:48] LABS: Alanine Aminotransferase 10 U/L (0-31); Albumin Level 3.9 g/dL (3.5-5.0); Alkaline Phosphatase 59 U/L (39-117); Anion Gap 16 (12-20); Aspartate Amino Transferase 11 U/L (5-31); Bilirubin Total 0.4 mg/dL (0.0-1.0); Blood Urea Nitrogen 11 mg/dL (9-16); Calcium 7.9 mg/dL (8.4-10.2); Carbon Dioxide 28 mmol/L (22-29); Chloride 102 mmol/L (96-108); Cholesterol 150 mg/dL; Estimated Glomerular Filt Rate > 60; Glucose Fasting 128 mg/dL (60-99); HDL Cholesterol 35 mg/dL; LDL Cholesterol Calculated 68 mg/dl; Potassium 3.7 mmol/L (3.3-5.1); Sodium 142 mmol/L (135-145); Total Protein 6.6 g/dL (6.5-8.0); Triglycerides 239 mg/dL
[2020-12-02 11:49] LABS: Amorphous Sediment Urine 3+ /LPF; Bacteria Urine 1+ /LPF; RBC Urine 0 /HPF (0); Squamous Epithelial Cell Urine 2+ /LPF
[2020-12-02 11:55] LABS: Estimated Average Glucose 140 mg/dL; Ferritin 4 ng/mL (10-250); Hemoglobin A1c % 6.5 %; TSH reflex Free T4 0.38 uIU/mL (0.32-4.0)
[2020-12-02 12:18] LABS: Creatinine Urine 147.74 mg/dL; Microalbum/Creatinine Ratio Ur 27.7 ug/mg cr
== END 2020-12-02 08:43 | disposition home or self-care (01) ==
LOC: HO.HMGCLDS 08:42
PROVIDERS: PCP Nurse Practitioner Family; Visit Provider Internal Medicine
DX: Z00.00 Encounter for general adult medical examination without abnormal findings (principal); E11.9 Type 2 diabetes mellitus without complications; D50.0 Iron deficiency anemia secondary to blood loss (chronic)
CPT/HCPCS: 36415; 80053; 80061; 81001; 82043; 82728; 83036; 83540; 84443; 85025; 87086

== ENCOUNTER 2021-01-15 11:27 | Outpatient (REF) | payer MEDICARE, SELFPAY ==
--- NOTE | ~2021-01-15 | MM_ITS ---
EXAMINATION: MM SCREENING DIGITAL BREAST TOMOSYNTHESIS, BILATERAL CLINICAL INFORMATION: Screening. Asymptomatic. The lifetime risk of breast cancer based on the Tyrer-Cuzick Model is 3.9%. COMPARISON: Mammography: January 27, 2018 and studies dating back to December 31, 2009 TECHNIQUE: Digital breast tomosynthesis is performed in both the craniocaudal and mediolateral oblique views along with computer-aided detection (CAD). Synthesized 2D images are generated from the tomosynthesis. FINDINGS: There are scattered areas of fibroglandular density (ACR BI-RADS breast composition Category b). There are no significant masses, abnormal calcifications, or other abnormalities. MM/MM tomosynthesis screening BI IMPRESSION: There are no significant changes from prior study. ASSESSMENT: BI-RADS 1: Negative RECOMMENDATION: Routine annual mammography screening. This patient's information was entered into a reminder system with a target due date for their next mammogram.
== END 2021-01-15 11:28 | disposition home or self-care (01) ==
LOC: HO.MAMMO 11:27
PROVIDERS: Visit Provider Nurse Practitioner Family
DX: Z12.31 Encounter for screening mammogram for malignant neoplasm of breast (principal)
CPT/HCPCS: 77063; 77067

== ENCOUNTER 2021-03-17 10:36 | Outpatient (REF) | payer MEDICARE, SELFPAY ==
[2021-03-17 13:49] LABS: MANUAL DIFF FLAG NO
[2021-03-17 14:01] LABS: Basophils Absolute Auto 0.1 X10*3/uL (0.0-0.2); Basophils Percent Auto 0.6 % (0-2); Eosinophils Absolute Auto 0.6 X10*3/uL (0.0-0.4); Eosinophils Percent Auto 6.9 % (0-4); Hematocrit 33.8 % (37.0-47.0); Hemoglobin 9.9 g/dl (12.0-16.0); Imm Gran Abs Auto 0.04 X10*3/uL (0.00-0.03); Imm Gran Pct Auto 0.4 % (0.0-0.4); Lymphocytes Absolute Auto 2.3 X10*3/uL (1.2-4.9); Lymphocytes Percent Auto 24.2 % (20-40); Mean Corpuscular HGB Conc 29.3 g/dl (31.0-35.0); Mean Corpuscular Hemoglobin 23.3 pg (27.0-33.0); Mean Corpuscular Volume 79.5 fL (80.0-98.0); Mean Platelet Volume 11.7 fL (9.4-12.3); Monocytes Absolute Auto 0.6 X10*3/uL (0.1-1.2); Monocytes Percent Auto 6.4 % (2-11); Neutrophils Absolute Auto 5.7 x10*3/uL (2.0-8.3); Neutrophils Percent Auto 61.5 % (45-73); Platelet Count 314 X10*3/uL (160-400); Red Blood Count 4.25 X10*6/uL (4.20-5.50); Red Cell Distribution Width 16.3 % (11.0-16.0); White Blood Count 9.3 X10*3/uL (4.8-10.8)
[2021-03-17 14:17] LABS: Iron 31 mcg/dL (30-160); Percent Iron Saturation 7 % (15-50); Total Iron Binding Capacity 416 mcg/dL (228-428); Unsaturated Iron Binding 385 ug/dL
[2021-03-17 14:38] LABS: Ferritin 3 ng/mL (10-250)
== END 2021-03-17 10:37 | disposition home or self-care (01) ==
LOC: HO.HMGCLDS 10:36
PROVIDERS: PCP Nurse Practitioner Family; Visit Provider Internal Medicine
DX: D50.0 Iron deficiency anemia secondary to blood loss (chronic) (principal)
CPT/HCPCS: 36415; 82728; 83540; 85025

== ENCOUNTER 2021-07-16 08:25 | Outpatient (REF) | payer MEDICARE, SELFPAY ==
[2021-07-16 11:22] LABS: MANUAL DIFF FLAG NO
[2021-07-16 11:38] LABS: Basophils Absolute Auto 0.1 X10*3/uL (0.0-0.2); Basophils Percent Auto 0.6 % (0-2); Eosinophils Absolute Auto 0.6 X10*3/uL (0.0-0.4); Eosinophils Percent Auto 7.1 % (0-4); Hematocrit 35.3 % (37.0-47.0); Imm Gran Abs Auto 0.04 X10*3/uL (0.00-0.03); Imm Gran Pct Auto 0.5 % (0.0-0.4); Lymphocytes Absolute Auto 1.9 X10*3/uL (1.2-4.9); Lymphocytes Percent Auto 21.8 % (20-40); Mean Corpuscular HGB Conc 31.2 g/dl (31.0-35.0); Mean Corpuscular Hemoglobin 26.3 pg (27.0-33.0); Mean Corpuscular Volume 84.4 fL (80.0-98.0); Mean Platelet Volume 11.2 fL (9.4-12.3); Monocytes Absolute Auto 0.4 X10*3/uL (0.1-1.2); Monocytes Percent Auto 4.8 % (2-11); Neutrophils Absolute Auto 5.6 x10*3/uL (2.0-8.3); Neutrophils Percent Auto 65.2 % (45-73); Platelet Count 244 X10*3/uL (160-400); Red Blood Count 4.18 X10*6/uL (4.20-5.50); Red Cell Distribution Width 16.5 % (11.0-16.0); White Blood Count 8.6 X10*3/uL (4.8-10.8)
[2021-07-16 11:40] LABS: Estimated Average Glucose 146 mg/dL; Hemoglobin A1C 149.3913 umol/L; Hemoglobin A1c % 6.7 %
[2021-07-16 11:48] LABS: Alanine Aminotransferase 12 U/L (0-31); Albumin Level 3.8 g/dL (3.5-5.0); Alkaline Phosphatase 65 U/L (39-117); Anion Gap 11 (12-20); Aspartate Amino Transferase 14 U/L (5-31); Bilirubin Total 0.6 mg/dL (0.0-1.0); Blood Urea Nitrogen 16 mg/dL (9-16); Calcium 8.5 mg/dL (8.4-10.2); Carbon Dioxide 31 mmol/L (22-29); Chloride 103 mmol/L (96-108); Cholesterol 161 mg/dL; Estimated Glomerular Filt Rate 60; Glucose Fasting 136 mg/dL (60-99); HDL Cholesterol 41 mg/dL; LDL Cholesterol Calculated 84 mg/dl; Potassium 4.1 mmol/L (3.3-5.1); Sodium 141 mmol/L (135-145); Total Protein 6.6 g/dL (6.5-8.0); Triglycerides 184 mg/dL
[2021-07-16 12:21] LABS: TSH reflex Free T4 2.61 uIU/mL (0.32-4.0)
[2021-07-16 12:32] LABS: Appearance Urine CLOUDY; Color Urine YELLOW; Glucose Urine UA NEG (NEG); Leukocyte Esterase Urine TRACE (NEG); Nitrite Urine NEG (NEG); PH 5.5 (5.0-8.0); Specific Gravity - Urine >= 1.030 (1.005-1.025); Urine Blood NEG (NEG); Urine Ketones NEG (NEG); Urine Protein NEG (NEG-TRACE)
[2021-07-16 12:59] LABS: Amorphous Sediment Urine 4+ /LPF
[2021-07-16 13:05] LABS: RBC Urine 0 /HPF (0); WBC Urine 0 /HPF (0-4)
[2021-07-16 13:06] LABS: Squamous Epithelial Cell Urine TRACE /LPF
== END 2021-07-16 08:26 | disposition home or self-care (01) ==
LOC: HO.HMGCLDS 08:25
PROVIDERS: Visit Provider Nurse Practitioner Family
DX: E11.9 Type 2 diabetes mellitus without complications (principal)
CPT/HCPCS: 36415; 80053; 80061; 81001; 81003; 83036; 84443; 85025

== ENCOUNTER 2021-07-18 07:19 | Outpatient (REF) | payer MEDICARE, SELFPAY ==
[2021-07-18 11:31] LABS: Iron 26 mcg/dL (30-160); Percent Iron Saturation 7 % (15-50); Total Iron Binding Capacity 356 mcg/dL (228-428); Unsaturated Iron Binding 330 ug/dL
[2021-07-18 11:41] LABS: Ferritin 17 ng/mL (10-250)
== END 2021-07-18 07:20 | disposition home or self-care (01) ==
LOC: HO.HMGCLDS 07:19
PROVIDERS: PCP Nurse Practitioner Family; Visit Provider Internal Medicine
DX: D50.0 Iron deficiency anemia secondary to blood loss (chronic) (principal)
CPT/HCPCS: 36415; 82728; 83540

== ENCOUNTER 2021-11-27 09:22 | Outpatient (REF) | payer MEDICARE, SELFPAY ==
--- NOTE | ~2021-11-27 | MM_ITS ---
EXAMINATION: BONE DENSITOMETRY CLINICAL INDICATION: Asymptomatic menopausal state. COMPARISON: Baseline BD dated 03/06/2019. TECHNIQUE: Using a [employer] DXA System (software version: 13.1) manufactured by [employer], dual-energy x-ray absorptiometry was performed of the lumbar spine and left hip. The images are of good technical quality. Summary results are attached. FINDINGS: AP SPINE L1-L4: Current: BMD 1.458 g/cm2, Z-score 2.8, T-score 2.3, normal, 0.5% decrease from baseline (<5% change is not significant). Baseline: BMD 1.465 g/cm2. LEFT FEMUR, NECK: Current: BMD 1.136 g/cm2, Z-score 1.6, T-score 0.7, normal. Baseline: BMD 1.089 g/cm2. LEFT FEMUR, TOTAL: Current: BMD 1.111 g/cm2, Z-score 1.4, T-score 0.8, normal, 1.2% decrease from baseline (<5% change is not significant). Baseline: BMD 1.125 g/cm2. IDENTIFIED RISK FACTORS: Menopause. HISTORY OF FRACTURE: None listed. MEDICATIONS: Calcium supplements or multivitamin, vitamin D. MM/XR DEXA axial skeleton IMPRESSION: 1. DIAGNOSIS: Normal bone density based on the lowest T-score value of 0.7 in the femoral neck applying World Health Organization criteria. 2. 10-YEAR FRACTURE RISK PREDICTION, FRAX: According to the guidelines, FRAX calculation should only be performed on patients in the osteopenia bone density category. Therefore, FRAX was not performed on this patient. 3. Treatment Recommendations: NOF guidelines recommend consideration for treatment in postmenopausal women and men age 50 and older presenting with the following: -A hip or vertebral (clinical or morphometric) fracture. -T-score less than or equal to -2.5 at the femoral neck or spine after appropriate evaluation to exclude secondary causes. -Low bone mass at the hip or spine and a 10-year fracture probability by FRAX of greater than or equal to 3% for hip fracture or greater than or equal to 20% for major osteoporotic fracture based on the [place] adapted WHO algorithm. 4. Other Recommendations: All treatment decisions require clinical judgment and consideration of individual patient factors, including patient preferences, comorbidities, previous drug use, risk factors not captured in the FRAX model (e.g. frailty, falls, vitamin D deficiency, increased bone turnover, interval significant decline in bone density) and possible under or overestimation of fracture risk by FRAX. FUTURE SCAN RECOMMENDATION: People with diagnosed cases of osteoporosis or at high risk for fracture should have regular bone mineral density tests. For patients eligible for Medicare, routine testing is allowed once every 2 years. The testing frequency can be increased to one year for patients who have rapidly progressing disease, those who are receiving or discontinuing medical therapy to restore bone mass, or have additional risk factors.
== END 2021-11-27 09:23 | disposition home or self-care (01) ==
LOC: HO.MAMMO 09:22
PROVIDERS: Visit Provider Nurse Practitioner Family
DX: Z13.820 Encounter for screening for osteoporosis (principal); Z78.0 Asymptomatic menopausal state
CPT/HCPCS: 77080

== ENCOUNTER 2022-01-19 10:22 | Outpatient (REF) | payer MEDICARE, SELFPAY ==
--- NOTE | ~2022-01-19 | MM_ITS ---
EXAMINATION: MM SCREENING DIGITAL BREAST TOMOSYNTHESIS, BILATERAL CLINICAL INFORMATION: Screening. Asymptomatic. The lifetime risk of breast cancer based on the Tyrer-Cuzick Model is 3.6%. COMPARISON: Mammography: January 15, 2021 and studies dating back to November 30, 2011 TECHNIQUE: Digital breast tomosynthesis is performed in both the craniocaudal and mediolateral oblique views along with computer-aided detection (CAD). Synthesized 2D images are generated from the tomosynthesis. FINDINGS: There are scattered areas of fibroglandular density (ACR BI-RADS breast composition Category b). There are no significant masses, abnormal calcifications, or other abnormalities. MM/MM tomosynthesis screening BI IMPRESSION: No significant changes from prior exam. ASSESSMENT: BI-RADS 1: Negative RECOMMENDATION: Routine annual mammography screening. This patient's information was entered into a reminder system with a target due date for their next mammogram.
== END 2022-01-19 10:23 | disposition home or self-care (01) ==
LOC: HO.MAMMO 10:22
PROVIDERS: PCP Nurse Practitioner Family; Visit Provider Nurse Practitioner Family
DX: Z12.31 Encounter for screening mammogram for malignant neoplasm of breast (principal)
CPT/HCPCS: 77063; 77067

== ENCOUNTER 2022-03-23 08:08 | Outpatient (REF) | payer MEDICARE, SELFPAY ==
[2022-03-23 11:23] LABS: MANUAL DIFF FLAG NO
[2022-03-23 11:31] LABS: Appearance Urine Turbid; Color Urine Yellow; Glucose Urine UA Negative (Negative); Leukocyte Esterase Urine Small (1+) (Negative); Nitrite Urine Negative (Negative); PH 5.5 (5.0-9.0); UMIC TRIGGER UACC YES; Urine Blood Negative (Negative); Urine Ketones Negative (Negative); Urine Protein Negative (Neg-Trace)
[2022-03-23 11:39] LABS: Basophils Absolute Auto 0.1 X10*3/uL (0.0-0.2); Basophils Percent Auto 0.8 % (0-2); Eosinophils Absolute Auto 0.4 X10*3/uL (0.0-0.4); Eosinophils Percent Auto 4.5 % (0-4); Hematocrit 36.5 % (37.0-47.0); Hemoglobin 11.2 g/dl (12.0-16.0); Imm Gran Abs Auto 0.06 X10*3/uL (0.00-0.03); Imm Gran Pct Auto 0.7 % (0.0-0.4); Lymphocytes Absolute Auto 2.3 X10*3/uL (1.2-4.9); Lymphocytes Percent Auto 24.8 % (20-40); Mean Corpuscular HGB Conc 30.7 g/dl (31.0-35.0); Mean Corpuscular Hemoglobin 26.7 pg (27.0-33.0); Mean Corpuscular Volume 87.1 fL (80.0-98.0); Mean Platelet Volume 11.3 fL (9.4-12.3); Monocytes Absolute Auto 0.6 X10*3/uL (0.1-1.2); Monocytes Percent Auto 6.2 % (2-11); Neutrophils Absolute Auto 5.7 x10*3/uL (2.0-8.3); Platelet Count 290 X10*3/uL (160-400); Red Blood Count 4.19 X10*6/uL (4.20-5.50); Red Cell Distribution Width 13.4 % (11.0-16.0); White Blood Count 9.1 X10*3/uL (4.8-10.8)
[2022-03-23 11:47] LABS: Bacteria Urine None Seen (None Seen); Hyaline Casts Urine 0-2 /LPF (0-2); RBC Urine 0-2 /HPF (0-2); UACC Culture Trigger YES; WBC Urine 0-5 /HPF (0-5)
[2022-03-23 11:55] LABS: Estimated Average Glucose 140 mg/dL; Hemoglobin A1c % 6.5 %
[2022-03-23 12:14] LABS: Creatinine Urine 135.41 mg/dL; Microalbum/Creatinine Ratio Ur 7.3 ug/mg cr
[2022-03-23 12:29] LABS: Alanine Aminotransferase 16 U/L (0-31); Albumin Level 4.2 g/dL (3.5-5.0); Alkaline Phosphatase 56 U/L (39-117); Anion Gap 13 (12-20); Aspartate Amino Transferase 16 U/L (5-31); Bilirubin Total 0.6 mg/dL (0.0-1.0); Blood Urea Nitrogen 26 mg/dL (9-16); Calcium 8.6 mg/dL (8.4-10.2); Carbon Dioxide 29 mmol/L (22-29); Chloride 102 mmol/L (96-108); Cholesterol 177 mg/dL; Estimated Glomerular Filt Rate 48; Glucose Fasting 134 mg/dL (60-99); HDL Cholesterol 40 mg/dL; LDL Cholesterol Calculated 97 mg/dl; Sodium 140 mmol/L (135-145); Total Protein 7.1 g/dL (6.5-8.0); Triglycerides 202 mg/dL
[2022-03-23 12:37] LABS: Vitamin D 25-OH Total 53.1 ng/mL (>30)
== END 2022-03-23 08:09 | disposition home or self-care (01) ==
LOC: HO.HMGCLDS 08:08
PROVIDERS: PCP Nurse Practitioner Family; Visit Provider Nurse Practitioner Family
DX: E11.9 Type 2 diabetes mellitus without complications (principal); Z78.0 Asymptomatic menopausal state
CPT/HCPCS: 36415; 80053; 80061; 81001; 82043; 82306; 83036; 84443; 85025; 87086

== ENCOUNTER 2022-07-21 08:09 | Outpatient (REF) | payer MEDICARE, SELFPAY ==
[2022-07-21 11:09] LABS: MANUAL DIFF FLAG NO
[2022-07-21 11:34] LABS: Appearance Urine Turbid; Basophils Absolute Auto 0.1 X10*3/uL (0.0-0.2); Basophils Percent Auto 0.6 % (0-2); Color Urine Dark Yellow; Eosinophils Absolute Auto 0.5 X10*3/uL (0.0-0.4); Eosinophils Percent Auto 4.6 % (0-4); Glucose Urine UA Negative (Negative); Hemoglobin 11.7 g/dl (12.0-16.0); Imm Gran Abs Auto 0.05 X10*3/uL (0.00-0.03); Imm Gran Pct Auto 0.5 % (0.0-0.4); Leukocyte Esterase Urine Moderate (2+) (Negative); Lymphocytes Absolute Auto 2.6 X10*3/uL (1.2-4.9); Lymphocytes Percent Auto 23.8 % (20-40); Mean Corpuscular HGB Conc 30.8 g/dl (31.0-35.0); Mean Corpuscular Volume 90.9 fL (80.0-98.0); Mean Platelet Volume 11.3 fL (9.4-12.3); Monocytes Absolute Auto 0.8 X10*3/uL (0.1-1.2); Monocytes Percent Auto 7.6 % (2-11); Neutrophils Absolute Auto 6.8 x10*3/uL (2.0-8.3); Neutrophils Percent Auto 62.9 % (45-73); Nitrite Urine Negative (Negative); PH 5.5 (5.0-9.0); Platelet Count 264 X10*3/uL (160-400); Red Blood Count 4.18 X10*6/uL (4.20-5.50); Specific Gravity - Urine >= 1.030 (1.005-1.025); UMIC TRIGGER UACC YES; Urine Blood Negative (Negative); Urine Ketones Trace mg/dL (Negative); Urine Protein 30 (1+) mg/dL (Neg-Trace); White Blood Count 10.9 X10*3/uL (4.8-10.8)
[2022-07-21 12:01] LABS: Other Crystals Urine Present
[2022-07-21 12:02] LABS: Bacteria Urine None Seen (None Seen); Hyaline Casts Urine 0-2 /LPF (0-2); RBC Urine 0-2 /HPF (0-2); Squamous Epithelial Cell Urine 0-2 /HPF (0-2); UACC Culture Trigger YES
[2022-07-21 12:16] LABS: Alanine Aminotransferase 22 U/L (0-31); Albumin Level 3.9 g/dL (3.5-5.0); Alkaline Phosphatase 50 U/L (39-117); Anion Gap 14 (12-20); Aspartate Amino Transferase 16 U/L (5-31); Bilirubin Total 0.6 mg/dL (0.0-1.0); Blood Urea Nitrogen 13 mg/dL (9-16); Calcium 8.7 mg/dL (8.4-10.2); Carbon Dioxide 28 mmol/L (22-29); Chloride 106 mmol/L (96-108); Cholesterol 104 mg/dL; Estimated Glomerular Filt Rate 59; Glucose Fasting 135 mg/dL (60-99); HDL Cholesterol 37 mg/dL; LDL Cholesterol Calculated 31 mg/dl; Potassium 4.2 mmol/L (3.3-5.1); Sodium 144 mmol/L (135-145); Total Protein 6.3 g/dL (6.5-8.0); Triglycerides 182 mg/dL
[2022-07-21 12:19] LABS: TSH reflex Free T4 1.12 uIU/mL (0.32-4.0); Vitamin D 25-OH Total 56.9 ng/mL (>30)
[2022-07-21 12:20] LABS: Estimated Average Glucose 146 mg/dL; Hemoglobin A1c % 6.7 %
== END 2022-07-21 08:10 | disposition home or self-care (01) ==
LOC: HO.HMGCLDS 08:09
PROVIDERS: PCP Nurse Practitioner Family; Visit Provider Nurse Practitioner Family
DX: I10 Essential (primary) hypertension (principal); E55.9 Vitamin D deficiency, unspecified; E11.9 Type 2 diabetes mellitus without complications; R82.90 Unspecified abnormal findings in urine
CPT/HCPCS: 36415; 80053; 80061; 81001; 82306; 83036; 84443; 85025; 87086

== ENCOUNTER 2022-08-04 09:32 | Outpatient (REF) | payer MEDICARE, SELFPAY ==
[2022-08-04 11:33] LABS: MANUAL DIFF FLAG NO
[2022-08-04 11:52] LABS: Basophils Absolute Auto 0.1 X10*3/uL (0.0-0.2); Basophils Percent Auto 0.6 % (0-2); Eosinophils Absolute Auto 0.6 X10*3/uL (0.0-0.4); Eosinophils Percent Auto 5.2 % (0-4); Hematocrit 37.2 % (37.0-47.0); Hemoglobin 11.6 g/dl (12.0-16.0); Imm Gran Abs Auto 0.08 X10*3/uL (0.00-0.03); Imm Gran Pct Auto 0.7 % (0.0-0.4); Lymphocytes Absolute Auto 2.5 X10*3/uL (1.2-4.9); Lymphocytes Percent Auto 22.8 % (20-40); Mean Corpuscular HGB Conc 31.2 g/dl (31.0-35.0); Mean Corpuscular Hemoglobin 28.3 pg (27.0-33.0); Mean Corpuscular Volume 90.7 fL (80.0-98.0); Mean Platelet Volume 11.3 fL (9.4-12.3); Monocytes Absolute Auto 0.7 X10*3/uL (0.1-1.2); Monocytes Percent Auto 6.5 % (2-11); Neutrophils Percent Auto 64.2 % (45-73); Platelet Count 307 X10*3/uL (160-400); Red Cell Distribution Width 14.6 % (11.0-16.0); White Blood Count 10.9 X10*3/uL (4.8-10.8)
== END 2022-08-04 09:33 | disposition home or self-care (01) ==
LOC: HO.HMGCLDS 09:32
PROVIDERS: PCP Nurse Practitioner Family; Visit Provider Nurse Practitioner Family
DX: D72.829 Elevated white blood cell count, unspecified (principal)
CPT/HCPCS: 36415; 85025

== ENCOUNTER 2022-08-06 09:54 | Outpatient (REF) | payer MEDICARE, SELFPAY ==
[2022-08-06 11:37] LABS: Appearance Urine Clear; Color Urine Yellow; Glucose Urine UA Negative (Negative); Leukocyte Esterase Urine Moderate (2+) (Negative); Nitrite Urine Negative (Negative); PH 5.5 (5.0-9.0); Specific Gravity - Urine 1.015 (1.005-1.025); UMIC TRIGGER UACC YES; Urine Blood Negative (Negative); Urine Ketones Negative (Negative); Urine Protein Negative (Neg-Trace)
[2022-08-06 11:43] LABS: Bacteria Urine Trace (None Seen); Hyaline Casts Urine 0-2 /LPF (0-2); RBC Urine 0-2 /HPF (0-2); UACC Culture Trigger YES
== END 2022-08-06 09:55 | disposition home or self-care (01) ==
LOC: HO.HMGCLNP 09:54
PROVIDERS: PCP Nurse Practitioner Family; Visit Provider Nurse Practitioner Family
DX: D72.829 Elevated white blood cell count, unspecified (principal); I10 Essential (primary) hypertension; R82.90 Unspecified abnormal findings in urine
CPT/HCPCS: 81001; 87086

== ENCOUNTER 2022-11-24 10:08 | Outpatient (AMB) | payer MEDICARE, SELFPAY ==
--- NOTE | 2022-11-24 10:56 | MHC.PC.OV ---
Vital Signs 11/24/22 10:57 Height 5 ft Weight 248 lb BMI 48.4 BP 130/84 Blood Pressure Location Lt brachial Position Sitting Pulse 57 Pulse Source Pulse Oximeter Pulse Oximetry (%) 99 Oxygen Delivery Method Room Air Intake Visit Reasons: Annual PE Allergies latex [Latex] Allergy (Unknown, Verified 11/24/22 10:58) BLISTERS penicillin V Allergy (Unknown, Verified 11/24/22 10:58) unknown Penicillins Allergy (Unknown, Verified 11/24/22 10:58) RASH Tobacco use date assessed: 11/24/22 Fall risk assessment: No Falls in past year Last assessed Fall Risk: 11/24/22 Dental Screening Dental Screen Date: 11/24/22 Did you have a dental visit in the last 12 months?: Yes Did you have a dental problem in the last 6 months where you did not have access to dental care?: No Was dental information given to patient?: Patient has dentist HPI Annual PE HPI Details Pt is here for a PE. Will order labs. Mammo is up to date, repeat is scheduled. Colon screen is up to date. Bone density is up to date. Pt is a diabetic, on an ARB and a statin. A1C in office today is 6.0. Microalbumin is up to date. Denies polyuria, polydipsia, and neuropathy. Pt denies any signs and symptoms of hypoglycemia and does know how to correct it. Eye exam is scheduled. [facility] Medical History Asthma Diabetes HTN (hypertension) Thyroid disease Surgical History History of esophagogastroduodenoscopy (EGD) History of thyroidectomy History of tonsillectomy History of tubal ligation Hx of cholecystectomy Hx of colonoscopy Social History Household Members: Spouse Housing: House Do you presently have visiting nurse or other home services: No Alcohol intake: current Alcohol intake frequency: holidays/special occasions only Patient Tobacco Use Status: Never used Tobacco e-Cigarette/Vaping Use: Never Used Second Hand Smoke Exposure: No service: No Current occupational status: retired Cognitive needs: No Hearing needs: No Vision needs: No Questionnaire Thrive Questionnaire Date Thrive assessed: 03/30/22 KRYSTYNA-7 AMB Questionnaire KRYSTYNA-7 Date KRYSTYNA - 7 assessed: 03/30/22 Source: Developed by Drs. Cory Medrano, Jennifer Flynn, Nathen Garrison and colleagues, with an educational erin from [employer]. Review of Systems Const Denies chills and Denies fever(s) Eyes Denies blurry vision ENT Denies vertigo, Denies dizziness and Denies sore throat Card Denies chest pain at rest, Denies chest pain with activity, Denies diaphoresis, Denies dyspnea and Denies dyspnea on exertion Resp Denies cough, Denies dyspnea, Denies dyspnea on exertion and Denies wheezing GI Denies abdominal pain, Denies melena, Denies hematochezia, Denies constipation, Denies diarrhea and Denies loose stools Denies hematuria Musc Denies numbness and Denies tingling Skin/Breast Denies lesions Neuro Denies vertigo, Denies dizziness, Denies numbness and Denies tingling Psych Denies anxiety, Denies depression, Denies homicidal ideation, Denies suicidal ideation and Denies other (substance abuse) Aller/Immun Denies wheezing Physical exam (Primary Care) Vital Signs: Last Vital Signs Pulse 57 11/24/22 10:57 BP 130/84 11/24/22 10:57 Pulse Ox 99 11/24/22 10:57 Oxygen Delivery Method Room Air 11/24/22 10:57 BMI result Body Mass Index 48.4 Tobacco/Smoking Status: Tobacco use Status Tobacco use date assessed 11/24/22 11/24/22 11:01 Patient Tobacco Use Status Never used Tobacco 11/24/22 11:01 e-Cigarette/Vaping Use Never Used 11/24/22 11:01 Thrive Assessment: Date of Thrive Assessment Date Thrive assessed 03/30/22 11/24/22 11:01 Const General: cooperative Nutritional Appearance: obese morbidly obese Orientation/consciousness: patient oriented x3 HENMT Head: Yes normal to inspection, Yes normocephalic and Yes atraumatic Ears: TM's normal bilaterally Eyes General: appearance normal, both eyes and all related structures Alignment and Position: alignment normal and position normal Neck Neck: Yes normal visual inspection and Yes no lymphadenopathy Thyroid: Thyroid normal Resp Effort & Inspection: normal respiratory effort Auscultation: clear to auscultation bilaterally Cardio Rate: regular rate Rhythm: regular rhythm Heart sounds: S1 normal heart sound present, S2 normal heart sound present and Murmur heart sound present systolic GI Palpation (GI): Soft to palpation and nontender Auscultation: normal bowel sounds Skin Rashes: no rashes Neuro General: patient oriented x3, moves all extremities, no focal motor deficits and deep tendon reflexes 2+ bilaterally Romberg Test: Negative Extrem Other: bilat feet: + sensation with use of monofilament Psych Appearance: grossly normal Mental Status: mental status grossly normal Speech and movement: Normal speech and movement present Affect: normal affect Attitude: cooperative Thought process: Normal thought process present Thought content: Normal thought content present Insight: Good insight present (Psych) Judgement: Good judgement present (Psych) Results AMB Hemoglobin A1c AMB Hemoglobin A1c 6.0 % Last Edit by Marcy Saba CMA on 11/24/22 11:26 Results Reviewed Results Reviewed: Laboratory Last Values Hgb A1c (Clinic) 6.0 % (4.0-6.0) 11/24/22 11:12 Assessment and Plan Assessment & Plan (1) Diabetes: Code(s): E11.9 - Type 2 diabetes mellitus without complications Plan: Labs ordered (2) Physical exam, annual: Code(s): Z00.00 - Encounter for general adult medical examination without abnormal findings Plan: Labs ordered (3) Postmenopausal: Code(s): Z78.0 - Asymptomatic menopausal state Plan The patient agreed to the use of a biomedical photographer for this encounter. Scribed for MIGUELINA Winkler by Melanie Montalvo biomedical photographer, on 11/24/2022 at 11:15 EST. Orders: Orders Comprehensive [place]. Panel Fast Today E11.9 - Type 2 diabetes mellitus without complications, Z00.00 - Encounter for general adult medical examination without abnormal findings Lipid Panel Today E11.9 - Type 2 diabetes mellitus without complications, Z00.00 - Encounter for general adult medical examination without abnormal findings TSH reflex Free T4 Today E11.9 - Type 2 diabetes mellitus without complications, Z00.00 - Encounter for general adult medical examination without abnormal findings Complete Blood Count Auto Diff Today E11.9 - Type 2 diabetes mellitus without complications, Z00.00 - Encounter for general adult medical examination without abnormal findings UA CC w/rflx Micro + Cult Today E11.9 - Type 2 diabetes mellitus without complications, Z00.00 - Encounter for general adult medical examination without abnormal findings Vitamin D 25-OH Total Today Z78.0 - Asymptomatic menopausal state AMB Hemoglobin A1c Today E11.9 - Type 2 diabetes mellitus without complications, Z78.0 - Asymptomatic menopausal state Coding Level of Care Code Est Pt Prev Care >65y(10241) Diagnoses Diabetes E11.9 Physical exam, annual Z00.00 Postmenopausal Z78.0
[2022-11-24 10:57] VITALS: BP 130/84; PULSE 57; O2SAT 99; BMI 48.4
== END 2022-11-24 11:52 | disposition home or self-care (01) ==
PROVIDERS: Visit Provider Nurse Practitioner Family
DX: Z00.00 Encounter for general adult medical examination without abnormal findings (principal); E11.9 Type 2 diabetes mellitus without complications; Z78.0 Asymptomatic menopausal state
CPT/HCPCS: 83036; 99397

== ENCOUNTER 2023-01-21 09:18 | Outpatient (REF) | payer MEDICARE, SELFPAY ==
--- NOTE | ~2023-01-21 | MM_ITS ---
EXAMINATION: MM SCREENING DIGITAL BREAST TOMOSYNTHESIS, BILATERAL CLINICAL INFORMATION: Screening. Asymptomatic. The patient is status post remote right breast excision for fibroadenoma in 2001. COMPARISON: Mammography: This study is compared with prior exams dating back to 2017. TECHNIQUE: Digital breast tomosynthesis is performed in both the craniocaudal and mediolateral oblique views along with computer-aided detection (CAD). Synthesized 2D images are generated from the tomosynthesis. FINDINGS: There are scattered areas of fibroglandular density (ACR BI-RADS breast composition Category b). There are no significant masses, abnormal calcifications, or other abnormalities. MM/MM tomosynthesis screening BI IMPRESSION: No mammographic evidence of malignancy. ASSESSMENT: BI-RADS BI-RADS 1 - Negative RECOMMENDATION: Routine annual mammography screening. 1 year F/U This examination should not preclude the clinical evaluation of a suspicious palpable abnormality. This patient's information was entered into a reminder system with a target due date for their next mammogram.
== END 2023-01-21 09:19 | disposition home or self-care (01) ==
LOC: HO.MAMMO 09:18
PROVIDERS: Visit Provider Nurse Practitioner Family
DX: Z12.31 Encounter for screening mammogram for malignant neoplasm of breast (principal)
CPT/HCPCS: 77063; 77067

== ENCOUNTER → 2023-01-21 09:45 | Outpatient (BNV) | payer MEDICARE, SELFPAY | PROVIDERS: Visit Provider Radiology Diagnostic Radiology | DX: Z12.31 Encounter for screening mammogram for malignant neoplasm of breast (principal) | CPT/HCPCS: 77063; 77067 ==

== ENCOUNTER 2023-03-19 09:03 | Outpatient (REF) | payer MEDICARE, SELFPAY ==
[2023-03-19 11:06] LABS: MANUAL DIFF FLAG NO
[2023-03-19 11:10] LABS: Appearance Urine Clear; Color Urine Yellow; Glucose Urine UA Negative (Negative); Leukocyte Esterase Urine Negative (Negative); Nitrite Urine Negative (Negative); PH 5.5 (5.0-9.0); Urine Blood Negative (Negative); Urine Ketones Negative (Negative); Urine Protein Negative (Neg-Trace)
[2023-03-19 11:16] LABS: Basophils Absolute Auto 0.1 X10*3/uL (0.0-0.2); Basophils Percent Auto 0.7 % (0-2); Eosinophils Absolute Auto 0.6 X10*3/uL (0.0-0.4); Eosinophils Percent Auto 6.7 % (0-4); Hematocrit 37.9 % (37.0-47.0); Hemoglobin 12.2 g/dl (12.0-16.0); Imm Gran Abs Auto 0.03 X10*3/uL (0.00-0.03); Imm Gran Pct Auto 0.4 % (0.0-0.4); Lymphocytes Absolute Auto 2.8 X10*3/uL (1.2-4.9); Lymphocytes Percent Auto 32.6 % (20-40); Mean Corpuscular HGB Conc 32.2 g/dl (31.0-35.0); Mean Corpuscular Hemoglobin 28.6 pg (27.0-33.0); Mean Corpuscular Volume 88.8 fL (80.0-98.0); Mean Platelet Volume 11.3 fL (9.4-12.3); Monocytes Absolute Auto 0.6 X10*3/uL (0.1-1.2); Monocytes Percent Auto 7.3 % (2-11); Neutrophils Absolute Auto 4.5 x10*3/uL (2.0-8.3); Neutrophils Percent Auto 52.3 % (45-73); Platelet Count 248 X10*3/uL (160-400); Red Blood Count 4.27 X10*6/uL (4.20-5.50); Red Cell Distribution Width 13.7 % (11.0-16.0); White Blood Count 8.5 X10*3/uL (4.8-10.8)
[2023-03-19 11:55] LABS: Alanine Aminotransferase 13 U/L (0-31); Albumin Level 3.9 g/dL (3.5-5.0); Alkaline Phosphatase 47 U/L (39-117); Anion Gap 15 (12-20); Aspartate Amino Transferase 18 U/L (5-31); Bilirubin Total 0.7 mg/dL (0.0-1.0); Blood Urea Nitrogen 18 mg/dL (9-16); Calcium 8.9 mg/dL (8.4-10.2); Carbon Dioxide 28 mmol/L (22-29); Chloride 101 mmol/L (96-108); Cholesterol 103 mg/dL (<200); Estimated Glomerular Filt Rate > 60; Glucose Fasting 136 mg/dL (60-99); HDL Cholesterol 36 mg/dL (>40); LDL Cholesterol Calculated 26 mg/dL (<100); Potassium 4.1 mmol/L (3.3-5.1); Sodium 140 mmol/L (135-145); Total Protein 6.8 g/dL (6.5-8.0); Triglycerides 209 mg/dL (<150)
== END 2023-03-19 09:04 | disposition home or self-care (01) ==
LOC: HO.HMGCLDS 09:03
PROVIDERS: PCP Nurse Practitioner Family; Visit Provider Nurse Practitioner Family
DX: Z00.00 Encounter for general adult medical examination without abnormal findings (principal); E11.9 Type 2 diabetes mellitus without complications; Z78.0 Asymptomatic menopausal state
CPT/HCPCS: 36415; 80053; 80061; 81003; 82306; 84439; 84443; 85025

== ENCOUNTER 2023-03-28 09:57 | Outpatient (AMB) | payer MEDICARE, SELFPAY ==
--- NOTE | 2023-03-28 10:26 | MHC.PC.OV ---
Vital Signs 03/28/23 10:29 Height 5 ft Weight 242 lb BMI 47.3 BP 130/72 Blood Pressure Location Rt brachial Position Sitting Pulse 64 Pulse Source Pulse Oximeter Pulse Oximetry (%) 97 Oxygen Delivery Method Room Air Intake Visit Reasons: 4 month follow up Intake Note: Patient here for diabetes follow up. Pt states she does not test sugar at home. Allergies latex [Latex] Allergy (Unknown, Verified 03/28/23 11:15) BLISTERS penicillin V Allergy (Unknown, Verified 03/28/23 11:15) unknown Penicillins Allergy (Unknown, Verified 03/28/23 11:15) RASH Medication List - Last Reconciled 03/28/23 by MIGUELINA Britt albuterol sulfate 90 mcg/actuation (ProAir HFA) 2 puffs inhalation Q6H PRN atenolol 50 mg PO DAILY calcium carbonate-vitamin D3 600 mg-10 mcg (400 unit) 1 cap PO BID cholecalciferol (vitamin D3) 50 mcg PO DAILY hydrochlorothiazide 25 mg PO DAILY levothyroxine 150 mcg PO DAILY metformin 1,000 mg PO BID 90 days rosuvastatin (Crestor) 5 mg PO DAILY Tobacco use date assessed: 03/28/23 Fall risk assessment: No Falls in past year Last assessed Fall Risk: 03/28/23 Dental Screening Dental Screen Date: 03/28/23 Did you have a dental visit in the last 12 months?: Yes Did you have a dental problem in the last 6 months where you did not have access to dental care?: No Was dental information given to patient?: Patient has dentist HPI 4 month follow up HPI Details Pt is a diabetic, on a statin. A1C in office today is 7.0. Due for microalbumin, will order. Denies polyuria, polydipsia, and neuropathy. Pt denies any signs and symptoms of hypoglycemia and does know how to correct it. Eye exam is up to date. [facility] Medical History Asthma Diabetes HTN (hypertension) Thyroid disease Surgical History History of esophagogastroduodenoscopy (EGD) History of thyroidectomy History of tonsillectomy History of tubal ligation Hx of cholecystectomy Hx of colonoscopy Social History Household Members: Spouse Housing: House Do you presently have visiting nurse or other home services: No Alcohol intake: current Alcohol intake frequency: holidays/special occasions only Patient Tobacco Use Status: Never used Tobacco e-Cigarette/Vaping Use: Never Used Second Hand Smoke Exposure: No service: No Current occupational status: retired Cognitive needs: No Hearing needs: No Vision needs: No Questionnaire PHQ-9 Over the last 2 weeks, how often have you been bothered by any of the following problems? 1. Little interest or pleasure in doing things: not at all 2. Feeling down, depressed, or hopeless: not at all 3. Trouble falling or staying asleep, or sleeping too much: nearly every day 4. Feeling tired or having little energy: not at all 5. Poor appetite or overeating: not at all 6. Feeling bad about yourself - or that you are a failure or have let yourself or your family down: not at all 8. Moving or speaking so slowly that other people could have noticed. Or the opposite - being so fidgety or restless that you have been moving around a lot more than usual: not at all 9. Thoughts that you would be better off or of hurting yourself in some way: not at all Depression Screening Interpretation: Negative Depression Screening Done: Yes Source: Developed by Drs. Cory Medrano, Jennifer Flynn, Nathen Garrison and colleagues, with an educational erin from [employer]. Thrive Questionnaire Date Thrive assessed: 03/28/23 I am a: Patient What is your living situation today?: I have a steady place to live Within the past 12 months, did the food you bought not last and you didn't have the money to get more?: Sometimes True Within the past 12 months, did you worry whether your food would run out before you got money to buy more?: Sometimes True Do you have trouble paying for medicines?: No Do you have trouble getting transportation to medical appointments?: No Do you have trouble paying your heating and electricity bill?: No Do you have trouble taking care of your child, family member or friend?: No Do you have trouble with day-to-day activities such as bathing, preparing meals, shopping, managing finances, etc.?: No Are you currently unemployed and looking for a job?: No Are you interested in more education?: No AUDIT C Alcohol Use Questionnaire (AUDIT-C) 1. How often do you have a drink containing alcohol?: Monthly or less 2. How many drinks containing alcohol do you have on a typical day when you are drinking?: 1 or 2 3. How often do you have six or more drinks on one occasion?: Never Total Score: 1 Score Reviewed/Action Taken: No KRYSTYNA-7 AMB Questionnaire KRYSTYNA-7 Date KRYSTYNA - 7 assessed: 03/28/23 Feeling nervous, anxious, or on edge: 0 = Not at all Not being able to stop or control worryin = Not at all Worrying too much about different things: 0 = Not at all Trouble relaxin = Not at all Being so restless that it is hard to sit still: 0 = Not at all Becoming easily annoyed or irritable: 0 = Not at all Feeling afraid as if something awful might happen: 0 = Not at all Total KRYSTYNA-7 score (0-4 normal; 5-9 mild; 10-14 moderate; 15-21 severe): 0 Source: Developed by Drs. Cory Medrano, Jennifer Flynn, Nathen Garrison and colleagues, with an educational erin from [employer]. KRYSTYNA-7 Assessment Billing KRYSTYNA-7 Assessment Tool: KRYSTYNA-7 Assessment 03980 Review of Systems Const Reports as per HPI Physical exam (Primary Care) Vital Signs: Last Vital Signs Pulse 64 03/28/23 10:29 BP 130/72 03/28/23 10:29 Pulse Ox 97 03/28/23 10:29 Oxygen Delivery Method Room Air 03/28/23 10:29 BMI result Body Mass Index 47.3 Tobacco/Smoking Status: Tobacco use Status Tobacco use date assessed 03/28/23 03/28/23 10:33 Patient Tobacco Use Status Never used Tobacco 03/28/23 10:33 e-Cigarette/Vaping Use Never Used 03/28/23 10:33 Depression Screening Interpretation: Negative Thrive Assessment: Date of Thrive Assessment Date Thrive assessed 03/30/22 03/28/23 10:33 Const General: cooperative Nutritional Appearance: obese morbidly obese Orientation/consciousness: patient oriented x3 Resp Effort & Inspection: normal respiratory effort Auscultation: clear to auscultation bilaterally Cardio Rate: regular rate Rhythm: regular rhythm Heart sounds: S1 normal heart sound present, S2 normal heart sound present and Murmur heart sound present systolic Neuro General: patient oriented x3 Psych Appearance: grossly normal Mental Status: mental status grossly normal Speech and movement: Normal speech and movement present Affect: normal affect Attitude: cooperative Thought process: Normal thought process present Thought content: Normal thought content present Insight: Good insight present (Psych) Judgement: Good judgement present (Psych) Results AMB Hemoglobin A1c AMB Hemoglobin A1c 7.0 % Last Edit by MARLYN Schwartz on 03/28/23 10:51 Results Reviewed Results Reviewed: Laboratory Last Values Hgb A1c (Clinic) 7.0 % (4.0-6.0) H 03/28/23 10:51 Assessment and Plan Assessment & Plan (1) Diabetes: Code(s): E11.9 - Type 2 diabetes mellitus without complications (2) Systolic murmur: Code(s): R01.1 - Cardiac murmur, unspecified Plan The patient agreed to the use of a medical technologist hematology for this encounter. Scribed for DAVID Winkler- by Melanie Montalvo medical technologist hematology, on 03/28/2023 at 10:45 EST. Orders: Orders Complete Blood Count Auto Diff Today E11.9 - Type 2 diabetes mellitus without complications Comprehensive [place]. Panel Fast Today E11.9 - Type 2 diabetes mellitus without complications TSH reflex Free T4 Today E11.9 - Type 2 diabetes mellitus without complications UA CC w/rflx Micro + Cult Today E11.9 - Type 2 diabetes mellitus without complications Microalbumin, Random (w Creat) Today E11.9 - Type 2 diabetes mellitus without complications AMB Hemoglobin A1c Today Z13.9 - Encounter for screening, unspecified Lipid Panel Today E11.9 - Type 2 diabetes mellitus without complications CA echo transthoracic complete Today R01.1 - Cardiac murmur, unspecified Coding Level of Care Code Est Pt Level 3 (73388) Diagnoses Diabetes E11.9 Systolic murmur R01.1 Additional Codes KRYSTYNA-7 Assessment Billing - KRYSTYNA-7 Assessment Tool: KRYSTYNA-7 Assessment [id number] ([id number])
[2023-03-28 10:29] VITALS: BP 130/72; PULSE 64; O2SAT 97; BMI 47.3
== END 2023-03-28 10:57 | disposition home or self-care (01) ==
PROVIDERS: PCP Nurse Practitioner Family; Visit Provider Nurse Practitioner Family
DX: E11.9 Type 2 diabetes mellitus without complications (principal); R01.1 Cardiac murmur, unspecified
CPT/HCPCS: 83036; 99213

== ENCOUNTER 2023-07-19 08:25 | Outpatient (REF) | payer MEDICARE, SELFPAY ==
[2023-07-19 10:24] LABS: MANUAL DIFF FLAG NO
[2023-07-19 10:42] LABS: Basophils Percent Auto 0.4 % (0-2); Eosinophils Absolute Auto 0.5 X10*3/uL (0.0-0.4); Eosinophils Percent Auto 5.3 % (0-4); Hematocrit 38.6 % (37.0-47.0); Hemoglobin 12.3 g/dl (12.0-16.0); Imm Gran Abs Auto 0.09 X10*3/uL (0.00-0.03); Lymphocytes Absolute Auto 2.4 X10*3/uL (1.2-4.9); Lymphocytes Percent Auto 26.6 % (20-40); Mean Corpuscular HGB Conc 31.9 g/dl (31.0-35.0); Mean Corpuscular Hemoglobin 27.5 pg (27.0-33.0); Mean Corpuscular Volume 86.4 fL (80.0-98.0); Mean Platelet Volume 10.5 fL (9.4-12.3); Monocytes Absolute Auto 0.6 X10*3/uL (0.1-1.2); Monocytes Percent Auto 6.7 % (2-11); Neutrophils Absolute Auto 5.4 x10*3/uL (2.0-8.3); Platelet Count 324 X10*3/uL (160-400); Red Blood Count 4.47 X10*6/uL (4.20-5.50); Red Cell Distribution Width 13.3 % (11.0-16.0)
[2023-07-19 10:44] LABS: Appearance Urine Clear; Color Urine Yellow; Glucose Urine UA Negative (Negative); Leukocyte Esterase Urine Moderate (2+) (Negative); Nitrite Urine Negative (Negative); Specific Gravity - Urine <= 1.005 (1.005-1.025); UMIC TRIGGER UACC YES; Urine Blood Negative (Negative); Urine Ketones Negative (Negative); Urine Protein Negative (Neg-Trace)
[2023-07-19 10:52] LABS: Bacteria Urine None Seen (None Seen); Hyaline Casts Urine 0-2 /LPF (0-2); RBC Urine 0-2 /HPF (0-2); Squamous Epithelial Cell Urine 0-2 /HPF (0-2); UACC Culture Trigger YES; WBC Urine 21-50 /HPF (0-5)
[2023-07-19 11:04] LABS: Alanine Aminotransferase 28 U/L (0-31); Albumin Level 3.9 g/dL (3.5-5.0); Alkaline Phosphatase 52 U/L (39-117); Anion Gap 18 (12-20); Aspartate Amino Transferase 25 U/L (5-31); Bilirubin Total 0.6 mg/dL (0.0-1.0); Blood Urea Nitrogen 12 mg/dL (9-16); Calcium 9.1 mg/dL (8.4-10.2); Carbon Dioxide 26 mmol/L (22-29); Chloride 99 mmol/L (96-108); Cholesterol 162 mg/dL (<200); Estimated Glomerular Filt Rate > 60; Glucose Fasting 141 mg/dL (60-99); HDL Cholesterol 37 mg/dL (>40); LDL Cholesterol Calculated 85 mg/dL (<100); Potassium 3.6 mmol/L (3.3-5.1); Sodium 139 mmol/L (135-145); Triglycerides 203 mg/dL (<150)
[2023-07-19 11:19] LABS: Creatinine Urine 52.44 mg/dL; Microalbum/Creatinine Ratio Ur 9.5 ug/mg cr (<30)
[2023-07-19 11:20] LABS: TSH reflex Free T4 0.06 uIU/mL (0.32-4.0)
[2023-07-19 12:59] LABS: Free T4 (Free Thyroxine) 1.64 ng/dL (0.71-1.85)
== END 2023-07-19 08:26 | disposition home or self-care (01) ==
LOC: HO.HMGCLDS 08:25
PROVIDERS: PCP Nurse Practitioner Family; Visit Provider Nurse Practitioner Family
DX: E11.9 Type 2 diabetes mellitus without complications (principal); R82.90 Unspecified abnormal findings in urine
CPT/HCPCS: 36415; 80053; 80061; 81001; 82043; 82570; 84439; 84443; 85025; 87086

== ENCOUNTER 2023-08-01 08:12 | Outpatient (AMB) | payer MEDICARE, SELFPAY ==
--- NOTE | 2023-08-01 08:17 | MHC.PC.OV ---
Vital Signs 08/01/23 08:22 Height 5 ft Weight 242 lb BMI 47.3 BP 124/78 Blood Pressure Location Rt brachial Position Sitting Pulse 71 Pulse Source Pulse Oximeter Pulse Oximetry (%) 98 Oxygen Delivery Method Room Air Intake Visit Reasons: 4 month follow up Intake Note: Patient here for diabetes follow up. Allergies latex [Latex] Allergy (Unknown, Verified 08/01/23 09:08) BLISTERS penicillin V Allergy (Unknown, Verified 08/01/23 09:08) unknown Penicillins Allergy (Unknown, Verified 08/01/23 09:08) RASH Medication List - Last Reconciled 08/01/23 by MIGUELINA Britt albuterol sulfate 90 mcg/actuation (ProAir HFA) 2 puffs inhalation Q6H PRN atenolol 50 mg PO DAILY calcium carbonate-vitamin D3 600 mg-10 mcg (400 unit) 1 cap PO BID cholecalciferol (vitamin D3) 50 mcg PO DAILY hydrochlorothiazide 25 mg PO DAILY levothyroxine 150 mcg PO DAILY metformin 1,000 mg PO BID 90 days montelukast 10 mg PO BEDTIME rosuvastatin (Crestor) 5 mg PO DAILY Tobacco use date assessed: 03/28/23 Fall risk assessment: No Falls in past year Last assessed Fall Risk: 08/01/23 Dental Screening Dental Screen Date: 03/28/23 HPI 4 month follow up HPI Details Pt is a diabetic, on a statin. A1C in office today is 6.9. Microalbumin is up to date. Denies polyuria, polydipsia, and neuropathy. Pt denies any signs and symptoms of hypoglycemia and does know how to correct it. Eye exam is up to date. Pt has an upcoming echo. Pt does not want to start a new medication for her diabetes currently. WIll cont to monitor. [facility] Medical History HTN (hypertension) Thyroid disease Asthma Diabetes Surgical History Hx of colonoscopy History of esophagogastroduodenoscopy (EGD) History of thyroidectomy Hx of cholecystectomy History of tubal ligation History of tonsillectomy Social History Household Members: Spouse Housing: House Do you presently have visiting nurse or other home services: No Alcohol intake: current Alcohol intake frequency: holidays/special occasions only Patient Tobacco Use Status: Never used Tobacco e-Cigarette/Vaping Use: Never Used Second Hand Smoke Exposure: No service: No Current occupational status: retired Cognitive needs: No Hearing needs: No Vision needs: No Questionnaire Thrive Questionnaire Date Thrive assessed: 03/28/23 AUDIT C Alcohol Use Questionnaire (AUDIT-C) 1. How often do you have a drink containing alcohol?: Monthly or less 2. How many drinks containing alcohol do you have on a typical day when you are drinking?: 1 or 2 3. How often do you have six or more drinks on one occasion?: Never Total Score: 1 KRYSTYNA-7 AMB Questionnaire KRYSTYNA-7 Date KRYSTYNA - 7 assessed: 03/28/23 Feeling nervous, anxious, or on edge: 0 = Not at all Not being able to stop or control worryin = Not at all Worrying too much about different things: 0 = Not at all Trouble relaxin = Not at all Being so restless that it is hard to sit still: 0 = Not at all Becoming easily annoyed or irritable: 0 = Not at all Feeling afraid as if something awful might happen: 0 = Not at all Total KRYSTYNA-7 score (0-4 normal; 5-9 mild; 10-14 moderate; 15-21 severe): 0 Source: Developed by Drs. Cory Medrano, Jennifer Flynn, Nathen Garrison and colleagues, with an educational erin from [employer]. Review of Systems Const Reports as per HPI Physical exam (Primary Care) Vital Signs: Last Vital Signs Pulse 71 08/01/23 08:22 BP 124/78 08/01/23 08:22 Pulse Ox 98 08/01/23 08:22 Oxygen Delivery Method Room Air 08/01/23 08:22 BMI result Body Mass Index 47.3 Tobacco/Smoking Status: Tobacco use Status Tobacco use date assessed 03/28/23 08/01/23 08:18 Patient Tobacco Use Status Never used Tobacco 08/01/23 08:18 e-Cigarette/Vaping Use Never Used 08/01/23 08:18 Thrive Assessment: Date of Thrive Assessment Date Thrive assessed 03/28/23 08/01/23 08:18 Const General: cooperative Nutritional Appearance: obese morbidly obese Orientation/consciousness: patient oriented x3 Resp Effort & Inspection: normal respiratory effort Auscultation: clear to auscultation bilaterally Cardio Rate: regular rate Rhythm: regular rhythm Heart sounds: S1 normal heart sound present, S2 normal heart sound present and Murmur heart sound present systolic Neuro General: patient oriented x3 Extrem Other: bilat feet: + sensation with use of monofilament, feet intact, feet are dry Psych Appearance: grossly normal Mental Status: mental status grossly normal Speech and movement: Normal speech and movement present Affect: normal affect Attitude: cooperative Thought process: Normal thought process present Thought content: Normal thought content present Insight: Good insight present (Psych) Judgement: Good judgement present (Psych) Results AMB Hemoglobin A1c AMB Hemoglobin A1c 6.9 % Last Edit by MARLYN Schwartz on 08/01/23 08:40 Assessment and Plan Assessment & Plan (1) Diabetes: Code(s): E11.9 - Type 2 diabetes mellitus without complications Plan: Labs ordered Plan The patient agreed to the use of a pesticide use medical coordinator for this encounter. Scribed for MIGUELINA Winkler by Melanie Montalvo pesticide use medical coordinator, on 08/01/2023 at 08:30 EST. Orders: Orders Comprehensive [place]. Panel Fast Today E11.9 - Type 2 diabetes mellitus without complications AMB Hemoglobin A1c Today Z13.9 - Encounter for screening, unspecified Complete Blood Count Auto Diff Today E11.9 - Type 2 diabetes mellitus without complications TSH reflex Free T4 Today E11.9 - Type 2 diabetes mellitus without complications UA CC w/rflx Micro + Cult Today E11.9 - Type 2 diabetes mellitus without complications Lipid Panel Today E11.9 - Type 2 diabetes mellitus without complications Coding Level of Care Code Est Pt Level 3 (95533) Diagnoses Diabetes E11.9
[2023-08-01 08:22] VITALS: BP 124/78; PULSE 71; O2SAT 98; BMI 47.3
== END 2023-08-01 08:42 | disposition home or self-care (01) ==
PROVIDERS: PCP Nurse Practitioner Family; Visit Provider Nurse Practitioner Family
DX: E11.9 Type 2 diabetes mellitus without complications (principal)
CPT/HCPCS: 83036; 99213

== ENCOUNTER → 2023-08-12 13:16 | Outpatient (REF) | payer MEDICARE, SELFPAY ==
--- NOTE | 2023-08-12 13:20 | CA_ITS ---
Transthoracic Echocardiogram Patient (Last, First, Middle): YulissaAugust, Gender: Female Date of : 1950 Age: 73 Procedure Date: 08/12/2023 Procedure Type: Transthoracic Echocardiogram Location: OP Height: 152.4 cm Weight: 109.77 kg BSA: 2.02 m2 Heart Rate: 60 bpm BP: 126 / 72 mmHg Pattern Storage Clerk: KARLY Referring MD: James William [facility] Symptoms: R01.1 - Cardiac murmur, unspecified Study Quality: Adequate ECG Rhythm: Sinus Conclusions: - Normal left ventricular size, thickness, systolic function, and wall motion. The visually estimated ejection fraction is between 60-65%. - Elevated filling pressures. - Normal right ventricular cavity size and systolic function. Findings Left Ventricle Normal left ventricular size, thickness, systolic function, and wall motion. The visually estimated ejection fraction is between 60-65%. Abnormal diastolic function is noted. Spectral Doppler is indicative of a pseudonormal filling pattern. Elevated filling pressures. Normal GLS -19% Right Ventricle Normal right ventricular cavity size and systolic function. Atria The left atrium is likely dilated. Aortic Valve The aortic valve structure and function is likely normal. There is mild calcification of the aortic valve. There is no aortic valve stenosis. There is no aortic valve regurgitation. Mitral Valve The mitral valve appears normal. There is mild mitral annular calcification. There is no mitral valve regurgitation. There is no mitral valve stenosis. Pulmonic Valve The pulmonic valve is normal. There is no pulmonic valve regurgitation. Tricuspid Valve Normal tricuspid valve structure. There is no tricuspid valve regurgitation. Tricuspid regurgitation envelope is inadequate for calculation of right ventricular systolic pressure. Normal right atrial pressure. Great Vessels All visible segments of the aorta are normal in size. The visualized portions of the pulmonary artery and branches are normal. Venous The inferior vena cava is normal in size and collapses greater than 50% with inspiration. Pericardium/Pleural There is no evidence of pericardial effusion. Prior Study Comparison Changes noted compared to prior study dated: 01/12/2018. Elevated filling pressures. Measurements 2D Linear Measurements IVSd: 0.98 0.6-0.9/0.6-1.0 cm LVIDd: 4.22 3.9-5.3/4.2-5.9 cm LVIDd Index: 2.09 2.4-3.2/2.2-3.1 cm/m2 LVIDs: 2.46 2.0-3.6 cm LVPWd: 0.76 0.7-1.1 cm LA Diam: 3.90 2.7-3.8/3.0-4.0 cm LAIDs Index: 1.93 1.5-2.3 cm/m2 LV Mass: 141.69 67-162/88-224 g LV Mass Index: 70.14 43-95/49-115 g/m2 LVOT Diam: 2.00 3.0+(-)1.3 cm 2D Systolic Function EF 4C: 64.60 >55% EF 2C: 65.50 >55% EF BiP: 63.00 >55% Mitral Valve MV Pk E: 1.22 MV PK A: 0.94 MV Decel Time: 216.00 E/A: 1.30 E'Lateral: 6.42 E'Medial: 5.66 E/E' Med: 21.60 E/E' Lat: 19.00 PHT: 63.00 MVA PHT: 3.49 Decel [place]: 5.65 Aortic Valve AoV Pk Carlo: 1.75 AoV Mn Carlo: 1.19 AoV VTI: 0.46 AoV Pk Grad: 12.00 Aov Mn Grad: 6.00 AMARJIT Cont.VTI: 2.24 LVOT LVOT Pk Carlo: 1.17 LVOT Mn Carlo: 0.89 LVOT VTI: 0.33 LVOT Pk Grad: 5.00 LVOT Mn Grad: 4.00 LVOT Diam: 2.00 LVOT Area: 3.14 Diastolic Function MV Pk E: 1.22 MV Pk A: 0.94 E/A: 1.30 E'Medial: 5.66 E/E' Med: 21.60 E' Laterial: 6.42 E/E' Lat: 19.00 Right Ventricle TAPSE (mm): 27.20 TVS' Carlo: 14.90 Tricuspid Valve RA Press: 3.00 Great Vessels Aorta Sinus of Valsalva: 2.50 2.0-3.5 cm Ao Asc: 3.20 2.1-3.4 cm Ao Desc: 1.90 Pulmonary Veins Pulm Vein S/D 1.40 Pulmonary Valve PV Pk Carlo: 1.02 Peak PV Grad: 4.00 Updated in Other Vendor System with Status of Final Cesar Wing MD electronically signed on 08/15/2023 5:40:06 PM with status of Final
== END ==
LOC: HO.CARD 13:16
PROVIDERS: PCP Nurse Practitioner Family; Visit Provider Nurse Practitioner Family
DX: R01.1 Cardiac murmur, unspecified (principal)
CPT/HCPCS: 93306; 93356

== ENCOUNTER → 2023-08-12 13:20 | Outpatient (BNV) | payer MEDICARE, SELFPAY | PROVIDERS: PCP Nurse Practitioner Family; Visit Provider Internal Medicine Cardiovascular Disease | DX: I35.8 Other nonrheumatic aortic valve disorders (principal); I34.81 Nonrheumatic mitral (valve) annulus calcification | CPT/HCPCS: 93306; 93356 ==

== ENCOUNTER 2023-10-10 07:48 | Outpatient (REF) | payer MEDICARE, SELFPAY ==
[2023-10-10 10:14] LABS: MANUAL DIFF FLAG NO
[2023-10-10 10:19] LABS: Basophils Absolute Auto 0.1 X10*3/uL (0.0-0.2); Basophils Percent Auto 0.8 % (0-2); Eosinophils Absolute Auto 0.5 X10*3/uL (0.0-0.4); Eosinophils Percent Auto 5.5 % (0-4); Hematocrit 36.6 % (37.0-47.0); Hemoglobin 11.6 g/dl (12.0-16.0); Imm Gran Abs Auto 0.05 X10*3/uL (0.00-0.03); Imm Gran Pct Auto 0.5 % (0.0-0.4); Lymphocytes Absolute Auto 2.4 X10*3/uL (1.2-4.9); Lymphocytes Percent Auto 26.4 % (20-40); Mean Corpuscular HGB Conc 31.7 g/dl (31.0-35.0); Mean Corpuscular Hemoglobin 27.8 pg (27.0-33.0); Mean Corpuscular Volume 87.8 fL (80.0-98.0); Monocytes Absolute Auto 0.6 X10*3/uL (0.1-1.2); Monocytes Percent Auto 6.1 % (2-11); Neutrophils Absolute Auto 5.6 x10*3/uL (2.0-8.3); Neutrophils Percent Auto 60.7 % (45-73); Platelet Count 269 X10*3/uL (160-400); Red Blood Count 4.17 X10*6/uL (4.20-5.50); Red Cell Distribution Width 14.4 % (11.0-16.0); White Blood Count 9.2 X10*3/uL (4.8-10.8)
[2023-10-10 10:22] LABS: Appearance Urine Clear; Color Urine Yellow; Glucose Urine UA Negative (Negative); Leukocyte Esterase Urine Trace (Negative); Nitrite Urine Negative (Negative); PH 5.5 (5.0-9.0); UMIC TRIGGER UACC YES; Urine Blood Negative (Negative); Urine Ketones Negative (Negative); Urine Protein Negative (Neg-Trace)
[2023-10-10 10:27] LABS: Bacteria Urine 4+ (None Seen); Hyaline Casts Urine 0-2 /LPF (0-2); RBC Urine 0-2 /HPF (0-2); Squamous Epithelial Cell Urine 0-2 /HPF (0-2); UACC Culture Trigger YES
[2023-10-10 10:52] LABS: Alanine Aminotransferase 18 U/L (0-31); Albumin Level 3.9 g/dL (3.5-5.0); Alkaline Phosphatase 51 U/L (39-117); Anion Gap 16 (12-20); Aspartate Amino Transferase 16 U/L (5-31); Bilirubin Total 0.5 mg/dL (0.0-1.0); Blood Urea Nitrogen 14 mg/dL (9-16); Calcium 9.2 mg/dL (8.4-10.2); Carbon Dioxide 27 mmol/L (22-29); Chloride 101 mmol/L (96-108); Cholesterol 164 mg/dL (<200); Estimated Glomerular Filt Rate > 60; Glucose Fasting 126 mg/dL (60-99); HDL Cholesterol 42 mg/dL (>40); LDL Cholesterol Calculated 89 mg/dL (<100); Potassium 3.7 mmol/L (3.3-5.1); Sodium 140 mmol/L (135-145); TSH reflex Free T4 0.24 uIU/mL (0.32-4.0); Total Protein 6.8 g/dL (6.5-8.0); Triglycerides 166 mg/dL (<150)
[2023-10-10 11:24] LABS: Free T4 (Free Thyroxine) 1.36 ng/dL (0.71-1.85)
== END 2023-10-10 07:49 | disposition home or self-care (01) ==
LOC: HO.HMGCLDS 07:48
PROVIDERS: PCP Nurse Practitioner Family; Visit Provider Nurse Practitioner Family
DX: E11.9 Type 2 diabetes mellitus without complications (principal); R82.79 Other abnormal findings on microbiological examination of urine
CPT/HCPCS: 36415; 80053; 80061; 81001; 84439; 84443; 85025; 87086; 87088; 87186

== ENCOUNTER 2023-11-23 11:11 | Outpatient (AMB) | payer MEDICARE, SELFPAY ==
[2023-11-23 11:23] VITALS: BP 132/80; PULSE 80; O2SAT 97; BMI 45.7
--- NOTE | 2023-11-23 11:23 | A.OFFPC_ITS ---
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 Required: No Accompanied by: Self / Same As Patient Allergies latex [Latex] Allergy (Unknown, Verified 11/23/23 11:24) BLISTERS penicillin V Allergy (Unknown, Verified 11/23/23 11:24) unknown Penicillins Allergy (Unknown, Verified 11/23/23 11:24) RASH Medication List - Last Reconciled 11/23/23 by MIGUELINA Britt albuterol sulfate 90 mcg/actuation (ProAir HFA) 2 puffs inhalation Q6H PRN atenolol 50 mg PO DAILY calcium carbonate-vitamin D3 600 mg-10 mcg (400 unit) 1 cap PO BID cholecalciferol (vitamin D3) 50 mcg PO DAILY hydrochlorothiazide 25 mg PO DAILY levothyroxine 150 mcg PO DAILY metformin 1,000 mg PO BID 90 days montelukast 10 mg PO BEDTIME rosuvastatin (Crestor) 5 mg PO DAILY Tobacco use date assessed: 03/28/23 Fall risk assessment: No Falls in past year Last assessed Fall Risk: 11/23/23 Dental Screening Dental Screen Date: 03/28/23 HPI 4 month follow up HPI Details Pt is a diabetic, on a statin. A1C in office today is 6.5. Microalbumin is up to date. Denies polyuria, polydipsia, and neuropathy. Pt denies any signs and symptoms of hypoglycemia and does know how to correct it. Eye exam is scheduled for this month. Pt's TSH was low. Will repeat labs before making any medication changes. [facility] [place] Medical History HTN (hypertension) Thyroid disease Asthma Diabetes Surgical History Hx of colonoscopy History of esophagogastroduodenoscopy (EGD) History of thyroidectomy Hx of cholecystectomy History of tubal ligation History of tonsillectomy Social History Household Members: Spouse Housing: House Do you presently have visiting nurse or other home services: No Alcohol intake: current Alcohol intake frequency: holidays/special occasions only Patient Tobacco Use Status: Never used Tobacco e-Cigarette/Vaping Use: Never Used Second Hand Smoke Exposure: No service: No Current occupational status: retired Cognitive needs: No Hearing needs: No Vision needs: No Questionnaire Thrive Questionnaire Date Thrive assessed: 11/23/23 I am a: Patient What is your living situation today?: I have a steady place to live Within the past 12 months, did the food you bought not last and you didn't have the money to get more?: Never true Within the past 12 months, did you worry whether your food would run out before you got money to buy more?: Never true Do you have trouble paying for medicines?: No Do you have trouble getting transportation to medical appointments?: No Do you have trouble paying your heating and electricity bill?: No Do you have trouble taking care of your child, family member or friend?: No Do you have trouble with day-to-day activities such as bathing, preparing meals, shopping, managing finances, etc.?: No Are you currently unemployed and looking for a job?: No Are you interested in more education?: No Please select the resources that you would like help with: None Currently or been in a relationship where the following occur: No concerns reported THRIVE Score: 0 AUDIT C Alcohol Use Questionnaire (AUDIT-C) 1. How often do you have a drink containing alcohol?: Monthly or less 2. How many drinks containing alcohol do you have on a typical day when you are drinking?: 1 or 2 3. How often do you have six or more drinks on one occasion?: Never Total Score: 1 Score Reviewed/Action Taken: Yes KRYSTYNA-7 AMB Questionnaire KRYSTYNA-7 Date KRYSTYNA - 7 assessed: 11/23/23 Feeling nervous, anxious, or on edge: 0 = Not at all Not being able to stop or control worryin = Not at all Worrying too much about different things: 0 = Not at all Trouble relaxin = Not at all Being so restless that it is hard to sit still: 0 = Not at all Becoming easily annoyed or irritable: 0 = Not at all Feeling afraid as if something awful might happen: 0 = Not at all Total KRYSTYNA-7 score (0-4 normal; 5-9 mild; 10-14 moderate; 15-21 severe): 0 Source: Developed by Drs. Cory Medrano, Jennifer Flynn, Nathen Garrison and colleagues, with an educational erin from [employer]. KRYSTYNA-7 Assessment Billing KRYSTYNA-7 Assessment Tool: KRYSTYNA-7 Assessment 05010 Review of Systems Const Reports as per HPI Physical exam (Primary Care) Vital Signs: Last Vital Signs Pulse 80 11/23/23 11:23 BP 132/80 11/23/23 11:23 Pulse Ox 97 11/23/23 11:23 BMI result Body Mass Index 45.7 Tobacco/Smoking Status: Tobacco use Status Tobacco use date assessed 03/28/23 11/23/23 11:25 Patient Tobacco Use Status Never used Tobacco 11/23/23 11:25 e-Cigarette/Vaping Use Never Used 11/23/23 11:25 Thrive Assessment: Date of Thrive Assessment Date Thrive assessed 11/23/23 11/23/23 11:25 Currently or been in a relationship where the following occur: No concerns reported Const General: cooperative Nutritional Appearance: obese morbidly obese Orientation/consciousness: patient oriented x3 Resp Effort & Inspection: normal respiratory effort Auscultation: clear to auscultation bilaterally Cardio Rate: regular rate Rhythm: regular rhythm Heart sounds: S1 normal heart sound present, S2 normal heart sound present and Murmur heart sound present systolic (faint) Neuro General: patient oriented x3 Extrem Other: bilat feet: + sensation with use of monofilament, feet intact Psych Appearance: grossly normal Mental Status: mental status grossly normal Speech and movement: Normal speech and movement present Affect: normal affect Attitude: cooperative Thought process: Normal thought process present Thought content: Normal thought content present Insight: Good insight present (Psych) Judgement: Good judgement present (Psych) Assessment and Plan Assessment & Plan (1) Diabetes: Code(s): E11.9 - Type 2 diabetes mellitus without complications Plan: Labs ordered (2) Vitamin D deficiency: Code(s): E55.9 - Vitamin D deficiency, unspecified Plan: Vitamin D ordered (3) Low TSH level: Code(s): R79.89 - Other specified abnormal findings of blood chemistry Plan: will cont to monitor (4) Postmenopausal: Code(s): Z78.0 - Asymptomatic menopausal state Plan: bone density ordered, vitamin D ordered Plan The patient agreed to the use of a medical office rep for this encounter. Scribed for MIGUELINA Winkler by Melanie Montalvo medical office rep, on 11/23/2023 at 12:00 EST. Orders: Orders Comprehensive Lane. Panel Fast Today E11.9 - Type 2 diabetes mellitus without complications Lipid Panel Today E11.9 - Type 2 diabetes mellitus without complications UA CC w/rflx Micro + Cult Today E11.9 - Type 2 diabetes mellitus without complications XR DEXA axial skeleton Today E55.9 - Vitamin D deficiency, unspecified, Z78.0 - Asymptomatic menopausal state Complete Blood Count Auto Diff Today E11.9 - Type 2 diabetes mellitus without complications TSH reflex Free T4 Today E11.9 - Type 2 diabetes mellitus without complications Vitamin D 25-OH Total Today E55.9 - Vitamin D deficiency, unspecified Coding Level of Care Code Est Pt Level 3 (51709) Diagnoses Diabetes E11.9 Vitamin D deficiency E55.9 Low TSH level R79.89 Postmenopausal Z78.0 Additional Codes KRYSTYNA-7 Assessment Billing - KRYSTYNA-7 Assessment Tool: KRYSTYNA-7 Assessment 38582 ([id number])
== END 2023-11-23 12:47 | disposition home or self-care (01) ==
PROVIDERS: PCP Nurse Practitioner Family; Visit Provider Nurse Practitioner Family
DX: E11.9 Type 2 diabetes mellitus without complications (principal); E55.9 Vitamin D deficiency, unspecified; R79.89 Other specified abnormal findings of blood chemistry; Z78.0 Asymptomatic menopausal state
CPT/HCPCS: 83036; 99213

== ENCOUNTER 2024-01-03 08:47 | Outpatient (REF) | payer MEDICARE, SELFPAY ==
[2024-01-03 09:56] LABS: MANUAL DIFF FLAG NO
[2024-01-03 09:59] LABS: Appearance Urine Clear; Color Urine Yellow; Glucose Urine UA Negative (Negative); Leukocyte Esterase Urine Moderate (2+) (Negative); Nitrite Urine Negative (Negative); Specific Gravity - Urine 1.015 (1.005-1.025); UMIC TRIGGER UACC YES; Urine Blood Negative (Negative); Urine Ketones Negative (Negative); Urine Protein Negative (Neg-Trace)
[2024-01-03 10:05] LABS: Bacteria Urine None Seen (None Seen); Hyaline Casts Urine 0-2 /LPF (0-2); RBC Urine 0-2 /HPF (0-2); UACC Culture Trigger YES
[2024-01-03 10:09] LABS: Basophils Absolute Auto 0.1 X10*3/uL (0.0-0.2); Basophils Percent Auto 0.8 % (0-2); Eosinophils Absolute Auto 0.6 X10*3/uL (0.0-0.4); Eosinophils Percent Auto 6.8 % (0-4); Hematocrit 37.3 % (37.0-47.0); Hemoglobin 12.1 g/dl (12.0-16.0); Imm Gran Abs Auto 0.05 X10*3/uL (0.00-0.03); Imm Gran Pct Auto 0.5 % (0.0-0.4); Lymphocytes Absolute Auto 2.5 X10*3/uL (1.2-4.9); Lymphocytes Percent Auto 26.5 % (20-40); Mean Corpuscular HGB Conc 32.4 g/dl (31.0-35.0); Mean Corpuscular Hemoglobin 28.3 pg (27.0-33.0); Mean Corpuscular Volume 87.1 fL (80.0-98.0); Mean Platelet Volume 10.8 fL (9.4-12.3); Monocytes Absolute Auto 0.6 X10*3/uL (0.1-1.2); Monocytes Percent Auto 6.6 % (2-11); Neutrophils Absolute Auto 5.4 x10*3/uL (2.0-8.3); Neutrophils Percent Auto 58.8 % (45-73); Platelet Count 269 X10*3/uL (160-400); Red Blood Count 4.28 X10*6/uL (4.20-5.50); Red Cell Distribution Width 13.6 % (11.0-16.0); White Blood Count 9.2 X10*3/uL (4.8-10.8)
[2024-01-03 10:25] LABS: Alanine Aminotransferase 15 U/L (0-31); Alkaline Phosphatase 54 U/L (39-117); Anion Gap 13 (12-20); Aspartate Amino Transferase 14 U/L (5-31); Bilirubin Total 0.6 mg/dL (0.0-1.0); Blood Urea Nitrogen 11 mg/dL (9-16); Carbon Dioxide 32 mmol/L (22-29); Chloride 101 mmol/L (96-108); Cholesterol 168 mg/dL (<200); Estimated Glomerular Filt Rate > 60; Glucose Fasting 139 mg/dL (60-99); HDL Cholesterol 42 mg/dL (>40); LDL Cholesterol Calculated 95 mg/dL (<100); Potassium 3.7 mmol/L (3.3-5.1); Sodium 142 mmol/L (135-145); Total Protein 6.8 g/dL (6.5-8.0); Triglycerides 159 mg/dL (<150)
[2024-01-03 10:45] LABS: TSH reflex Free T4 0.08 uIU/mL (0.32-4.0)
[2024-01-03 11:35] LABS: Free T4 (Free Thyroxine) 1.56 ng/dL (0.71-1.85)
== END 2024-01-03 08:48 | disposition home or self-care (01) ==
LOC: HO.HMGCLDS 08:47
PROVIDERS: PCP Nurse Practitioner Family; Visit Provider Nurse Practitioner Family
DX: E11.9 Type 2 diabetes mellitus without complications (principal); E55.9 Vitamin D deficiency, unspecified
CPT/HCPCS: 36415; 80053; 80061; 81001; 82306; 84439; 84443; 85025; 87086

== ENCOUNTER 2024-01-26 08:45 | Outpatient (REF) | payer MEDICARE, SELFPAY ==
[2024-01-26 10:50] LABS: Estimated Average Glucose 137 mg/dL; Hemoglobin A1c % 6.4 % (<6.0); Total Hemoglobin (HGBA1C) 2928.1581 umol/L
[2024-01-26 11:16] LABS: Alanine Aminotransferase 13 U/L (0-31); Albumin Level 3.8 g/dL (3.5-5.0); Alkaline Phosphatase 51 U/L (39-117); Anion Gap 15 (12-20); Aspartate Amino Transferase 23 U/L (5-31); Bilirubin Total 0.7 mg/dL (0.0-1.0); Blood Urea Nitrogen 15 mg/dL (9-16); Calcium 8.9 mg/dL (8.4-10.2); Carbon Dioxide 27 mmol/L (22-29); Chloride 102 mmol/L (96-108); Estimated Glomerular Filt Rate > 60; Glucose Random 131 mg/dL (60-115); Potassium 3.5 mmol/L (3.3-5.1); Sodium 140 mmol/L (135-145); Total Protein 6.7 g/dL (6.5-8.0)
== END 2024-01-26 08:46 | disposition home or self-care (01) ==
LOC: HO.HMGCLDS 08:45
PROVIDERS: PCP Nurse Practitioner Family; Visit Provider Internal Medicine
DX: Z13.228 Encounter for screening for other metabolic disorders (principal); Z13.1 Encounter for screening for diabetes mellitus
CPT/HCPCS: 36415; 80053; 83036

== ENCOUNTER 2024-01-27 09:54 | Outpatient (REF) | payer MEDICARE, SELFPAY ==
--- NOTE | ~2024-01-27 | MM_ITS ---
EXAMINATION: MM SCREENING DIGITAL BREAST TOMOSYNTHESIS, BILATERAL CLINICAL INFORMATION: Screening. Asymptomatic. COMPARISON: Mammography: Comparison is made with available priors TECHNIQUE: Digital breast mammography with tomosynthesis is performed in both the craniocaudal and mediolateral oblique views along with computer-aided detection (CAD). FINDINGS: There are scattered areas of fibroglandular density (ACR BI-RADS breast composition Category b). There are no significant masses, abnormal calcifications, or other abnormalities. MM/MM tomosynthesis screening BI IMPRESSION: No mammographic evidence of malignancy. ASSESSMENT: BI-RADS BI-RADS 1 - Negative RECOMMENDATION: Routine annual mammography screening. 1 year F/U This examination should not preclude the clinical evaluation of a suspicious palpable abnormality. This patient's information was entered into a reminder system with a target due date for their next mammogram. Electronically signed by: Bina Gilbert DO 02/07/2024 09:13 AM [facility]
--- NOTE | ~2024-01-27 | MM_ITS ---
EXAMINATION: BONE DENSITOMETRY CLINICAL INDICATION: Vitamin D deficiency, unspecified. COMPARISON: Previous BD dated 11/27/2021 and baseline BD dated 03/06/2019. TECHNIQUE: Using a [employer] DXA System (software version: 13.1) manufactured by [employer], dual-energy x-ray absorptiometry was performed of the lumbar spine and left hip. The images are of good technical quality. Summary results are attached. FINDINGS: LEFT FEMUR, NECK: Current: BMD 1.025 g/cm2, Z-score 0.9, T-score -0.1, normal. Prior: BMD 1.136 g/cm2. Baseline: BMD 1.089 g/cm2. LEFT FEMUR, TOTAL: Current: BMD 1.057 g/cm2, Z-score 1.1, T-score 0.4, normal, 4.9% decrease from previous, 6.0% decrease from baseline (<5% change is not significant). Prior: BMD 1.111 g/cm2. Baseline: BMD 1.125 g/cm2. AP SPINE L1-L4: Current: BMD 1.475 g/cm2, Z-score 3.0, T-score 2.5, normal, 1.2% increase from previous, 0.7% increase from baseline (<5% change is not significant). Prior: BMD 1.458 g/cm2. Baseline: BMD 1.465 g/cm2. IDENTIFIED RISK FACTORS: Menopause, thiazide. HISTORY OF FRACTURE: None listed. MEDICATIONS: Calcium, vitamin D. MM/XR DEXA axial skeleton IMPRESSION: 1. DIAGNOSIS: Normal bone density based on the lowest T-score value of -0.1 in the femoral neck applying World Health Organization criteria. 2. 10-YEAR FRACTURE RISK PREDICTION, FRAX: According to the guidelines, FRAX calculation should only be performed on patients in the osteopenia bone density category. Therefore, FRAX was not performed on this patient. 3. Treatment Recommendations: NOF guidelines recommend consideration for treatment in postmenopausal women and men age 50 and older presenting with the following: -A hip or vertebral (clinical or morphometric) fracture. -T-score less than or equal to -2.5 at the femoral neck or spine after appropriate evaluation to exclude secondary causes. -Low bone mass at the hip or spine and a 10-year fracture probability by FRAX of greater than or equal to 3% for hip fracture or greater than or equal to 20% for major osteoporotic fracture based on the [place] adapted WHO algorithm. 4. Other Recommendations: All treatment decisions require clinical judgment and consideration of individual patient factors, including patient preferences, comorbidities, previous drug use, risk factors not captured in the FRAX model (e.g. frailty, falls, vitamin D deficiency, increased bone turnover, interval significant decline in bone density) and possible under or overestimation of fracture risk by FRAX. FUTURE SCAN RECOMMENDATION: People with diagnosed cases of osteoporosis or at high risk for fracture should have regular bone mineral density tests. For patients eligible for Medicare, routine testing is allowed once every 2 years. The testing frequency can be increased to one year for patients who have rapidly progressing disease, those who are receiving or discontinuing medical therapy to restore bone mass, or have additional risk factors. Electronically signed by: Rudy Braden MD 01/27/2024 11:47 AM [facility]
== END 2024-01-27 09:55 | disposition home or self-care (01) ==
LOC: HO.MAMMO 09:54
PROVIDERS: PCP Nurse Practitioner Family; Visit Provider Nurse Practitioner Family
DX: Z12.31 Encounter for screening mammogram for malignant neoplasm of breast (principal); Z13.820 Encounter for screening for osteoporosis; Z78.0 Asymptomatic menopausal state; E55.9 Vitamin D deficiency, unspecified
CPT/HCPCS: 77063; 77067; 77080

== ENCOUNTER → 2024-01-27 10:15 | Outpatient (BNV) | payer MEDICARE, SELFPAY | PROVIDERS: PCP Nurse Practitioner Family; Visit Provider Internal Medicine | DX: Z12.31 Encounter for screening mammogram for malignant neoplasm of breast (principal) | CPT/HCPCS: 77063; 77067 ==

== ENCOUNTER 2024-03-01 09:00 | Outpatient (AMB) | payer MEDICARE, SELFPAY ==
--- NOTE | 2024-03-01 09:03 | MHC.PC.OV ---
Vital Signs 03/01/24 09:04 Height 5 ft Weight 233 lb BMI 45.5 BP 130/78 Blood Pressure Location Rt brachial Position Sitting Pulse 70 Pulse Source Pulse Oximeter Pulse Oximetry (%) 99 Intake Visit Reasons: 3m follow up Intake Note: pt is here for 3 month follow up Director Validation Required: No Accompanied by: Self / Same As Patient Allergies latex [Latex] Allergy (Unknown, Verified 03/01/24 09:04) BLISTERS penicillin V Allergy (Unknown, Verified 03/01/24 09:04) unknown Penicillins Allergy (Unknown, Verified 03/01/24 09:04) RASH Tobacco use date assessed: 03/28/23 Fall risk assessment: No Falls in past year Last assessed Fall Risk: 03/01/24 Dental Screening Dental Screen Date: 03/28/23 HPI 3m follow up HPI Details Chief Complaint diabetes History of Present Illness The patient is a 73-year-old female presenting with diabetes management. The patient reports a Hemoglobin A1c level of 6.4%, suggesting well-managed diabetes. The patient's thyroid levels have been slightly off, but ongoing medication adjustments are expected to stabilize these levels. Regarding her feet, the patient experiences pain without numbness, often described as sore rather than a burning sensation, indicating lesser likelihood of peripheral neuropathy. The patient has noted that her feet hurt at times, but denies numbness, although she experiences cold feet. She has good sensation and circulation in her feet. Patient reports previous labs conducted on 01/25 and 01/02 with results under review. Additionally, the patient mentioned recent lab results for a company and requested to fax them results. Her last eye examination occurred in November, and the pain in her feet has persisted, but is not associated with routine activity. Social History - The patient enjoys knitting, indicating maintained fine motor skills. - She avoids wearing socks due to discomfort. - The patient occasionally walks barefoot around the house but is advised to be careful. Health Maintenance - Last eye exam in November, results not specified. - Mammogram up to date . - Colon screening up to date. - Immunizations: RSV vaccine, consideration for future administration advised. Review of Systems - Neurologic: Reports pain in feet - Neurologic: Denies numbness in feet - Peripheral Vascular: Reports feet get cold - General: Denies wearing socks due to discomfort described as lumps Physical Exam General: Cooperative, healthy appearing, comfortable, no acute distress and well developed, obese Orientation: Patient oriented x3 Limitations: No limitations Head: Normal to inspection Ears: Hearing grossly normal bilaterally Nose: Normal external nose present Face and sinus: Normal facial exam Eyes: Appearance normal, both eyes and all related structures Neck: Normal visual inspection and Yes full ROM Respiratory: Normal respiratory effort and able to speak in complete sentences. Clear to auscultation bilaterally Cardiovascular: Regular rate and rhythm. Normal S1 and S2, systolic murmur GI: Normal to inspection. Soft to palpation and nontender Skin: No rashes or lesions noted Neuro: Patient oriented x3 Extremities: Normal to inspection, good sensation, good pulse, good circulation. Results - Labs: Hemoglobin A1c level at 6.4% - Tests: Thyroid levels slightly off Plan - Discuss possible adjustments to diabetes management, considering a close follow-up on blood sugar control. - Monitor feet for any signs of neuropathy, ensure regular checks on sensation and circulation. - Recommend warm water soaks for feet to alleviate discomfort and improve circulation. - Continued monitoring of thyroid function; pending ongoing medication adjustments to optimize levels. - Discuss the potential benefit of RSV vaccination when deemed appropriate. Patient was informed and verbally consented to the use of an ambient scribe for clinic note documentation during this visit. Discussion Notes I discussed with the patient the current status of her diabetes management, noting the positive A1c level of 6.4%. We reviewed the lab tests conducted in January and December, emphasizing the importance of regular monitoring. The patient was guided on foot care due to mild neuropathic symptoms. I educated her on potential indicators of progressing neuropathy in her feet and endorsed wearing warm water soaks as a beneficial practice. Thyroid function adjustments were discussed due to ongoing medication changes. The patient was advised about the option of an RSV vaccination. I reassured the patient of good management of her chronic conditions and encouraged her maintenance on current protocols. Patient Instructions - Continue to monitor blood sugar levels regularly. - Soak feet in warm water each morning to alleviate discomfort and promote circulation. - Avoid walking barefoot to protect feet. 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 - Consider RSV vaccination as discussed. - Maintain up-to-date health screenings and immunizations. - Monitor for any new or worsening symptoms of neuropathy and report if needed. [facility] Medical History HTN (hypertension) Thyroid disease Asthma Diabetes Surgical History Hx of colonoscopy History of esophagogastroduodenoscopy (EGD) History of thyroidectomy Hx of cholecystectomy History of tubal ligation History of tonsillectomy Social History Household Members: Spouse Housing: House Do you presently have visiting nurse or other home services: No Alcohol intake: current Alcohol intake frequency: holidays/special occasions only Patient Tobacco Use Status: Never used Tobacco e-Cigarette/Vaping Use: Never Used Second Hand Smoke Exposure: No service: No Current occupational status: retired Cognitive needs: No Hearing needs: No Vision needs: No Questionnaire PHQ-9 Over the last 2 weeks, how often have you been bothered by any of the following problems? 1. Little interest or pleasure in doing things: not at all 2. Feeling down, depressed, or hopeless: not at all 3. Trouble falling or staying asleep, or sleeping too much: not at all 4. Feeling tired or having little energy: not at all 5. Poor appetite or overeating: not at all 6. Feeling bad about yourself - or that you are a failure or have let yourself or your family down: not at all 7. Trouble concentrating on things, such as reading the newspaper or watching television: not at all 8. Moving or speaking so slowly that other people could have noticed. Or the opposite - being so fidgety or restless that you have been moving around a lot more than usual: not at all 9. Thoughts that you would be better off or of hurting yourself in some way: not at all Total score: 0 Depression Screening Interpretation: Negative Depression Screening Done: Yes 45284 - PHQ-9 Billing: Yes Source: Developed by Drs. Cory Medrano, Jennifer Flynn, Nathen Garrison and colleagues, with an educational erin from [facility]. Thrive Questionnaire Date Thrive assessed: 03/01/24 I am a: Patient What is your living situation today?: I have a steady place to live Within the past 12 months, did the food you bought not last and you didn't have the money to get more?: Never true Within the past 12 months, did you worry whether your food would run out before you got money to buy more?: Never true Do you have trouble paying for medicines?: No Do you have trouble getting transportation to medical appointments?: No Do you have trouble paying your heating and electricity bill?: No Do you have trouble taking care of your child, family member or friend?: No Do you have trouble with day-to-day activities such as bathing, preparing meals, shopping, managing finances, etc.?: No Are you currently unemployed and looking for a job?: No Are you interested in more education?: No Please select the resources that you would like help with: None Currently or been in a relationship where the following occur: No concerns reported THRIVE Score: 0 KRYSTYNA-7 AMB Questionnaire KRYSTYNA-7 Date KRYSTYNA - 7 assessed: 11/23/23 Source: Developed by Drs. Cory Medrano, Jennifer Flynn, Nathen Garrison and colleagues, with an educational erin from [facility]. Physical exam (Primary Care) Vital Signs: Last Vital Signs Pulse 70 03/01/24 09:04 BP 130/78 03/01/24 09:04 Pulse Ox 99 03/01/24 09:04 BMI result Body Mass Index 45.5 Tobacco/Smoking Status: Tobacco use Status Tobacco use date assessed 03/28/23 03/01/24 09:05 Patient Tobacco Use Status Never used Tobacco 03/01/24 09:05 e-Cigarette/Vaping Use Never Used 03/01/24 09:05 PHQ-9: PHQ-9 Score PHQ-9: Total score 0 03/01/24 09:05 Depression Screening Interpretation: Negative Thrive Assessment: Date of Thrive Assessment Date Thrive assessed 03/01/24 03/01/24 09:05 Currently or been in a relationship where the following occur: No concerns reported Coding Level of Care Code Est Pt Level 3 (34355) Diagnoses Diabetes E11.9 Additional Codes PHQ-9 - 92541 - PHQ-9 Billing: Yes ([id number]) Assessment & Plan Assessment & Plan (1) Diabetes: Code(s): E11.9 - Type 2 diabetes mellitus without complications Category: Medical Plan .
[2024-03-01 09:04] VITALS: BP 130/78; PULSE 70; O2SAT 99; BMI 45.5
--- OUTSIDE RECORDS SUMMARY | 2024-03-01 09:12 | XMS_ITS | Patient Health Record ---
Author Organization [facility] Address [address] [place] [id number] Care Team Providers Care Wind Project Manager Name Role Phone AJIT JARRETT Primary Care Provider Cory Leija Unavailable [phone] ALLERGIES Allergen (clinical drug ingredient) Drug/Non Drug Allergy documented on EMR Reaction Allergy Type Onset Date Status Penicillin Unknown Drug Allergy Active REASON FOR REFERRAL No Information MEDICATIONS Medication SIG (Take, Route, Frequency, Duration) Notes Start Date End Date Status Allergy Active ProAir HFA 108 (90 Base) MCG/ACT 2 puffs as needed Inhalation every 4 hrs Active Synthroid 150 MCG 1 tablet Orally Once a day Active Atenolol 50 MG 1 tablet Orally Once a day Active Famotidine 40 MG TAKE 1 TABLET BY MOUTH EVERY DAY AT BEDTIME for 30 Active hydroCHLOROthiazide 25 MG 1 tablet Orall y Once a day Active metFORMIN HCl 1000 MG 1 tablet with meal s Orally Twice a day Active Montelukast Sodium A ctive Levothyroxine Sodium Active IMMUNIZATIONS Vaccine Route Administration Date Status Comme nts Influenza Unknown 12/20/2019 Administered Influenza Unknown 11/19/2020 Administered SOCIAL HISTORY Sex Assigned At : Social History Observation Description Sex Assigned At Unknown PROBLEMS Problem Type ICD Code Onset Dates Problem Status W/U Status Risk SNOMED Code Notes Problem Esophageal reflux (K21.9) Active confirmed Esophageal refl ux (473429475) Problem 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 916420804 Problem Iron deficiency anemia (D50.9) Active confirmed Iron deficien cy anemia (93229253) Problem Heme + stool (R19.5) Active confirmed 62595260 Problem Iron deficiency anemia due to chronic blood loss (D50.0) Active confirmed 179485157 Problem Gastritis and duodenitis (K29.90) Active confirmed 253622596 Problem Diverticulosis of sigmoid colon (K57.30) Active confirmed Diverticulosis of sigmoid colon (341155050) PLAN OF TREATMENT Pending Test Test Name Order Date IRON + IBC (FE) 02/20/2021 IRON + IBC (FE) 09/02/2020 IRON + IBC (FE) 03/17/2021 FERRITIN 02/20/2021 CBC w DIFF 03/17/2021 CBC w DIFF 11/26/2020 CBC w DIFF 09/02/2020 CBC w DIFF 02/20/2021 CELIAC PANEL #10 09/02/2020 Ferritin 09/02/2020 Ferritin 03/17/2021 Future Test Test Name Order Date COLONOSCOPY 03/06/2014 Insurance Providers Payer Name Payer Address Payer Phone Subscriber Number Group Number Insured Name Patient Relationship to Insured Coverage Start Date Coverage End Date [facility] [address] [place] [phone] [id number] ROMAN TAAR Self - patient is the insured MEDICAL (GENERAL) HISTORY Medical History History ICD Code Screening Colonos copy --only diverticulosis and internal hemorrhoids; negative screening colonoscopy in 2014 Hypothyroidism Hypertension NIDDM Asthma Denies NM,CVA,renal disease Iron def anemia in August of . She was admitted and received 2 units of blood. Upper endoscopy revealed a small hiatal hernia but no evidence of any esophagitis, gastritis, nor duodenitis. Duodenal biopsies revealed some nonspecific increase in intraepithelial leukocytes but the villi were normal. Subsequent celiac disease labs were negative. A colonoscopy was normal at that time as well. She underwent a small bowel video capsule study in 11/2020 which described some gastritis and duodenitis, but no sign of bleeding. A subsequent H. pylori breath test was negative. Surgical History Surgery Date(Month/Year) tubal ligation cholecystectomy complete thyroidectomy
--- OUTSIDE RECORDS SUMMARY | 2024-03-01 09:12 | XMS_ITS | Continuity of Care Document ---
Author Organization [facility] Address [address] [address] Insurance Providers Payer Plan Claims Address Claims Phone Policy Number Group Number Relation Employer Guarantor Name Guarantor Guarantor Address Guarantor Phone DEE DEE [employer] [place] [facility] [address], [place] [address] tel:[phone] [id number] Self Sherri Yulissa [address] [place] [id number] Problems Condition ICD9 code ICD10 code SNOMED code Start Date End Date S tatus Encounter for screening for other metabolic disorders Z13.228 Results No Results Allergies, adverse reactions, alerts No known allergies and adverse reactions Medications No administered medications reported Vital Signs No vital signs reported Social History No smoking Hx information available
== END 2024-03-01 09:53 | disposition home or self-care (01) ==
PROVIDERS: PCP Nurse Practitioner Family; Visit Provider Nurse Practitioner Family
DX: E11.9 Type 2 diabetes mellitus without complications (principal)

== ENCOUNTER → 2024-03-01 09:00 | Outpatient (BNVA) | payer MEDICARE, SELFPAY | PROVIDERS: PCP Nurse Practitioner Family; Visit Provider Nurse Practitioner Family | DX: E11.9 Type 2 diabetes mellitus without complications (principal) | CPT/HCPCS: 96127; 99212 ==

== ENCOUNTER 2024-08-21 08:17 | Outpatient (REF) | payer MEDICARE, SELFPAY ==
--- OUTSIDE RECORDS SUMMARY | 2024-08-21 08:26 | XMS_ITS | Patient Health Record ---
Author Organization [facility] Address [address] [place] [address] Care Team Providers Care Supervisor [place] Name Role Phone Chalo Justice MD Primary Care Provider Kadie Samuel Unavailable [phone] Allergies Allergen (clinical drug ingredient) Drug/Non Drug Allergy documented on EMR Reaction Allergy Type Onset Date Status Penicillin hives Drug Allergy Active latex hives Drug Allergy Active Reason For Referral No Information Medications Medication SIG (Take, Route, Frequency, Duration) Notes Start Date End Date Status metFORMIN HCl 1000 MG Orally Active Feldene 20 MG 1 capsule with food Orally Once a day for 30 day(s) 01/31/2014 Active ProAir HFA 108 (90 Base) MCG/ACT 2 puffs as needed Inhalation every 4 hrs Active Singulair 10 MG 1 tablet in the evening Orally Once a day Active Synthroid 150 MCG 1 tablet Orally Once a day Active Atenolol 50 MG 1 tablet Orally Once a day Active Diovan 160 MG 1 tablet Orally Once a day Active hydroCHLOROthiazide 25 MG 1 tablet Orall y Once a day Active Problems Problem Type SNOMED Code ICD Code Onset Dates Problem Status W/U Status Risk Notes Problem Onychomycosis (654328403) Onychomycosis (110.1) Active confirmed Problem Type II diabetes mellitus without complication (114053233) Diabetic - NIDDM (250.00) Active confirmed Problem Pain in limb (75321489) Pain in Limb (729.5) Active confirmed Problem Hammer toe (204374706) Hammer toe (735.4) Active confirmed Problem Metatarsalgia (31902595) Metatarsalgia (726.70) Active confirmed Problem Neuralgia - Neuritis (729.2) Active confirmed Problem Paronychia (86784213) Paronychia (681.11) Active confirmed Plan Of Treatment Pending Test Test Name Order Date [id number] NAIL, 1-5 12/27/2013 [id number] NAIL, 1-5 01/31/2014 [id number] NAIL, 1-5 03/06/2014 [id number] NAIL, 1-5 04/10/2014 [id number] NAIL, 1-5 05/13/2014 [id number] Plate 05/13/2014 57525-Jqzymbxf Plate 04/10/2014 91907-Kxlqpsfv Plate 03/06/2014 79606-Mnzjrndx Plate Each Additional 82313-Rzzzhkcu Plate Each Additional 99278-Rikuvsiz Plate Each Additional 04176 I&D ABSCESS- SIMPLE,SINGLE 015 63483 I&D ABSCESS- SIMPLE,SINGLE 015 36942 I&D ABSCESS- SIMPLE,SINGLE 014 54844 I&D ABSCESS- SIMPLE,SINGLE 014 93173 I&D ABSCESS- SIMPLE,SINGLE 014 76802, [id number]/INJECT, JOINT/BURSA 1 05/07/2013 66870, [id number]/INJECT, JOINT/BURSA 0 04/10/2014 Insurance Providers Payer Name Payer Address Payer Phone Subscriber Number Group Number Insured Name Patient Relationship to Insured Coverage Start Date Coverage End Date [facility] [address] [place] [address] [phone] [id number] Franco Duenas Spouse - patient is the spouse of the insured Medical (General) History Medical History History ICD Code Measles Chicken pox Mumps asthma Diabetic High blood pressure Surgical History Surgery Date(Month/Year) Tubes cut and tied 1982 Gallbladder 1991 left thyroid 1997 right thyroid 2011
[2024-08-21 10:20] LABS: MANUAL DIFF FLAG NO
[2024-08-21 10:45] LABS: Appearance Urine Cloudy; Color Urine Yellow; Glucose Urine UA Negative (Negative); Leukocyte Esterase Urine Moderate (2+) (Negative); Nitrite Urine Negative (Negative); PH 5.5 (5.0-9.0); UMIC TRIGGER UACC YES; Urine Blood Negative (Negative); Urine Ketones Negative (Negative); Urine Protein Trace mg/dL (Neg-Trace)
[2024-08-21 10:48] LABS: Bacteria Urine Trace (None Seen); Hyaline Casts Urine 0-2 /LPF (0-2); RBC Urine 0-2 /HPF (0-2); UACC Culture Trigger YES; WBC Urine 21-50 /HPF (0-5)
[2024-08-21 10:50] LABS: Basophils Absolute Auto 0.1 X10*3/uL (0.0-0.2); Basophils Percent Auto 0.7 % (0-2); Eosinophils Absolute Auto 0.5 X10*3/uL (0.0-0.4); Eosinophils Percent Auto 5.7 % (0-4); Hematocrit 36.8 % (37.0-47.0); Hemoglobin 11.8 g/dl (12.0-16.0); Imm Gran Abs Auto 0.06 X10*3/uL (0.00-0.03); Imm Gran Pct Auto 0.7 % (0.0-0.4); Lymphocytes Absolute Auto 2.1 X10*3/uL (1.2-4.9); Lymphocytes Percent Auto 23.1 % (20-40); Mean Corpuscular HGB Conc 32.1 g/dl (31.0-35.0); Mean Corpuscular Hemoglobin 28.2 pg (27.0-33.0); Mean Corpuscular Volume 87.8 fL (80.0-98.0); Mean Platelet Volume 11.2 fL (9.4-12.3); Monocytes Absolute Auto 0.6 X10*3/uL (0.1-1.2); Monocytes Percent Auto 6.4 % (2-11); Neutrophils Absolute Auto 5.8 x10*3/uL (2.0-8.3); Neutrophils Percent Auto 63.4 % (45-73); Platelet Count 259 X10*3/uL (160-400); Red Blood Count 4.19 X10*6/uL (4.20-5.50); Red Cell Distribution Width 14.3 % (11.0-16.0); White Blood Count 9.1 X10*3/uL (4.8-10.8)
[2024-08-21 10:56] LABS: Estimated Average Glucose 143 mg/dL; Hemoglobin A1C 149.9481 umol/L; Hemoglobin A1c % 6.6 % (<6.0)
[2024-08-21 11:22] LABS: Alanine Aminotransferase 17 U/L (0-31); Albumin Level 4.1 g/dL (3.5-5.0); Alkaline Phosphatase 49 U/L (39-117); Anion Gap 14 (12-20); Aspartate Amino Transferase 20 U/L (5-31); Bilirubin Total 0.6 mg/dL (0.0-1.0); Blood Urea Nitrogen 17 mg/dL (9-16); Calcium 8.5 mg/dL (8.4-10.2); Carbon Dioxide 31 mmol/L (22-29); Chloride 103 mmol/L (96-108); Estimated Glomerular Filt Rate 54; Glucose Fasting 144 mg/dL (60-99); Sodium 144 mmol/L (135-145); Total Protein 6.8 g/dL (6.5-8.0)
[2024-08-21 11:43] LABS: TSH reflex Free T4 1.75 uIU/mL (0.32-4.0); Vitamin D 25-OH Total 70.9 ng/mL (>30)
[2024-08-21 11:49] LABS: Creatinine Urine 124.47 mg/dL; Microalbum/Creatinine Ratio Ur 17.6 ug/mg cr (<30)
== END 2024-08-21 08:18 | disposition home or self-care (01) ==
LOC: HO.HMGCLDS 08:17
PROVIDERS: PCP Nurse Practitioner Family; Visit Provider Nurse Practitioner Family
DX: E55.9 Vitamin D deficiency, unspecified (principal); E11.9 Type 2 diabetes mellitus without complications
CPT/HCPCS: 36415; 80053; 81001; 82043; 82306; 82570; 83036; 84443; 85025; 87086

== ENCOUNTER 2024-08-28 10:39 | Outpatient (AMB) | payer MEDICARE, SELFPAY ==
[2024-08-28 10:47] VITALS: BP 130/80; PULSE 62; O2SAT 98; BMI 46.5
--- NOTE | 2024-08-28 10:47 | A.OFFPC_ITS ---
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 Manager Required: No Accompanied by: Self / Same As Patient Allergies latex [Latex] Allergy (Unknown, Verified 08/28/24 10:47) BLISTERS penicillin V Allergy (Unknown, Verified 08/28/24 10:47) unknown Penicillins Allergy (Unknown, Verified 08/28/24 10:47) RASH Tobacco use date assessed: 08/28/24 Fall risk assessment: No Falls in past year Last assessed Fall Risk: 08/28/24 Dental Screening Dental Screen Date: 08/28/24 Did you have a dental visit in the last 12 months?: Yes Did you have a dental problem in the last 6 months where you did not have access to dental care?: No Was dental information given to patient?: Patient has dentist HPI Annual PE - see comments HPI Details History of Present Illness The patient is a 74-year-old female presenting with a request for a routine physical examination and follow-up on her chronic health issues, notably diabetes mellitus. Her Hemoglobin A1c levels are reported to be in the 6% range, indicating stable control of her diabetes. The recent laboratory findings indicated a reduced Glomerular Filtration Rate of 54, which is slightly decreased. She denies any current complaints of chest pain, dyspnea, abdominal pain, abnormal bowel movements, changes in urinary habits, or signs suggestive of a urinary tract infection. Although she experiences intermittent neuropathic sensations, these episodes are infrequent. The last echocardiogram revealed elevated filling pressures. It is noted that her health screenings, including a full eye examination, mammogram, and colonoscopy are current. please see lab results Health Maintenance - Up-to-date mammogram - Up-to-date colonoscopy - Current eye examination for diabetic r etinopathy - Monitoring Hemoglobin A1c within the 6 % range - Reminder for repeat urine analysis due to previous contamination - Encouraged increased fluid intake Social History Review of Systems - Cardiovascular: Denies chest pain or s hortness of breath. - Gastrointestinal: Denies abdominal al n, blood in stool, constipation, or diarrhea. - Genitourinary: Denies urinary issues o r symptoms of urinary tract infection. - Neurological: Reports infrequent neuro ethel. Physical Exam General: Cooperative, healthy appearing, comfortable, no acute distress and well developed Orientation: Patient oriented x3 Limitations: No limitations Head: Normal to inspection Ears: Hearing grossly normal bilaterally Nose: Normal external nose present Face and sinus: Normal facial exam Eyes: Appearance normal, both eyes and all related structures, eye exam is up-to-date Neck: Normal visual inspection and Yes full ROM Respiratory: Normal respiratory effort and able to speak in complete sentences. Clear to auscultation bilaterally Cardiovascular: Regular rate and rhythm. s1, s2, faint systolic murmur GI: Normal to inspection. Soft to palpation and nontender : Testicles without masses/lesions and no hernias appreciated Skin: No rashes or lesions noted Neuro: Patient oriented x3, positive sensation and use of monofilament, intact Extremities: Normal to inspection Results - Labs: Hemoglobin A1c in the 6% range, Glomerular Filtration Rate slightly decreased at 54. - Tests: Previous echocardiogram with el evated filling pressures. Plan The patient's diabetes management will continue with regular monitoring of Hemoglobin A1c levels, which currently appear under control. To address the GFR concern, increased fluid intake will be emphasized. A repeat urine test is necessary as the previous result was contaminated. Her intermittent neuropathy will be monitored, and an echocardiogram will be repeated to evaluate previously noted elevated filling pressures. All routine health maintenance checks including ocular exams, mammograms, and colonoscopies have been completed as recommended. Discussion Notes During the visit, I discussed the current management of the patient's diabetes, emphasizing the importance of maintaining controlled blood sugar levels, which is currently reflected in her Hgb A1c levels in the 6% range. I highlighted the need to increase fluid intake to support her renal health as her GFR was noted to be slightly reduced. I also explained the rationale for repeating the urine test due to prior contamination and the plan to re-assess cardiac function with another echocardiogram in light of previously detected elevated filling pressures. I reiterated the significance of up-to-date screenings, all of which have been appropriately maintained. Patient Instructions - Increase your daily fluid intake to dillon pport kidney function. - Plan to complete a repeat urine analys is soon. - Continue monitoring your glucose level s as advised. - Schedule a follow-up echocardiogram fo r further evaluation. - Follow through with all routine screen ings as recommended and notify us with any new or concerning symptoms. [facility] Medical History HTN (hypertension) Thyroid disease Asthma Diabetes Surgical History Hx of colonoscopy History of esophagogastroduodenoscopy (EGD) History of thyroidectomy Hx of cholecystectomy History of tubal ligation History of tonsillectomy Social History Household Members: Spouse Housing: House Do you presently have visiting nurse or other home services: No Alcohol intake: current Alcohol intake frequency: holidays/special occasions only Patient Tobacco Use Status: Never used Tobacco e-Cigarette/Vaping Use: Never Used Second Hand Smoke Exposure: No service: No Current occupational status: retired Cognitive needs: No Hearing needs: No Vision needs: Yes Questionnaire PHQ-9 Over the last 2 weeks, how often have you been bothered by any of the following problems? 1. Little interest or pleasure in doing things: not at all 2. Feeling down, depressed, or hopeless: not at all 3. Trouble falling or staying asleep, or sleeping too much: not at all 4. Feeling tired or having little energy: not at all 5. Poor appetite or overeating: not at all 6. Feeling bad about yourself - or that you are a failure or have let yourself or your family down: not at all 7. Trouble concentrating on things, such as reading the newspaper or watching television: not at all 8. Moving or speaking so slowly that other people could have noticed. Or the opposite - being so fidgety or restless that you have been moving around a lot more than usual: not at all 9. Thoughts that you would be better off or of hurting yourself in some way: not at all Total score: 0 Depression Screening Interpretation: Negative Depression Screening Done: Yes 79582 - PHQ-9 Billing: Yes Source: Developed by Drs. Cory Medrano, Jennifer Flynn, Nathen Garrison and colleagues, with an educational erin from [employer]. Thrive Questionnaire Date Thrive assessed: 08/28/24 I am a: Patient What is your living situation today?: I have a steady place to live Within the past 12 months, did the food you bought not last and you didn't have the money to get more?: Sometimes True Within the past 12 months, did you worry whether your food would run out before you got money to buy more?: Sometimes True Do you have trouble paying for medicines?: No Do you have trouble getting transportation to medical appointments?: No Do you have trouble paying your heating and electricity bill?: I choose not to answer this question Do you have trouble taking care of your child, family member or friend?: No Do you have trouble with day-to-day activities such as bathing, preparing meals, shopping, managing finances, etc.?: No Are you currently unemployed and looking for a job?: No Are you interested in more education?: No Please select the resources that you would like help with: None Currently or been in a relationship where the following occur: No concerns reported THRIVE Score: 2 AUDIT C Alcohol Use Questionnaire (AUDIT-C) 1. How often do you have a drink containing alcohol?: Monthly or less 2. How many drinks containing alcohol do you have on a typical day when you are drinking?: 1 or 2 3. How often do you have six or more drinks on one occasion?: Never Total Score: 1 Score Reviewed/Action Taken: Yes KRYSTYNA-7 AMB Questionnaire KRYSTYNA-7 Date KRYSTYNA - 7 assessed: 08/28/24 Feeling nervous, anxious, or on edge: 0 = Not at all Not being able to stop or control worryin = Not at all Worrying too much about different things: 0 = Not at all Trouble relaxin = Not at all Being so restless that it is hard to sit still: 0 = Not at all Becoming easily annoyed or irritable: 0 = Not at all Feeling afraid as if something awful might happen: 0 = Not at all Total KRYSTYNA-7 score (0-4 normal; 5-9 mild; 10-14 moderate; 15-21 severe): 0 Source: Developed by Drs. Cory Medrano, Jennifer Flynn, Nathen Garrison and colleagues, with an educational erin from [employer]. KRYSTYNA-7 Assessment Billing KRYSTYNA-7 Assessment Tool: KRYSTYNA-7 Assessment 27001 Physical exam (Primary Care) Vital Signs: Last Vital Signs Pulse 62 08/28/24 10:47 BP 130/80 08/28/24 10:47 Pulse Ox 98 08/28/24 10:47 Oxygen Delivery Method Room Air 08/28/24 10:47 BMI result Body Mass Index 46.5 Tobacco/Smoking Status: Tobacco use Status Tobacco use date assessed 08/28/24 08/28/24 10:48 Patient Tobacco Use Status Never used Tobacco 08/28/24 10:48 e-Cigarette/Vaping Use Never Used 08/28/24 10:48 PHQ-9: PHQ-9 Score PHQ-9: Total score 0 08/28/24 11:06 Depression Screening Interpretation: Negative Thrive Assessment: Date of Thrive Assessment Date Thrive assessed 08/28/24 08/28/24 10:48 Currently or been in a relationship where the following occur: No concerns reported Coding Level of Care Code Est Pt Level 3 (16144) Est Pt Prev Care >65y(89598) Diagnoses Physical exam, annual Z00.00 Systolic murmur R01.1 Abnormal echocardiogram R93.1 Diabetes E11.9 Additional Codes KRYSYTNA-7 Assessment Billing - KRYSTYNA-7 Assessment Tool: KRYSTYNA-7 Assessment 98273 ([id number]) PHQ-9 - 58876 - PHQ-9 Billing: Yes ([id number]) Assessment & Plan Assessment & Plan (1) Physical exam, annual: Code(s): Z00.00 - Encounter for general adult medical examination without abnormal findings Category: Medical (2) Systolic murmur: Code(s): R01.1 - Cardiac murmur, unspecified Category: Medical (3) Abnormal echocardiogram: Comment: elevated filling pressures Code(s): R93.1 - Abnormal findings on diagnostic imaging of heart and coronary circulation Category: Medical (4) Diabetes: Code(s): E11.9 - Type 2 diabetes mellitus without complications Category: Medical Plan . Orders: Orders UA CC w/rflx Micro + Cult Today L30.9 - Dermatitis, unspecified, Z00.00 - Encounter for general adult medical examination without abnormal findings CA echo transthoracic complete Today R01.1 - Cardiac murmur, unspecified, R93.1 - Abnormal findings on diagnostic imaging of heart and coronary circulation
== END 2024-08-28 11:41 | disposition home or self-care (01) ==
LOC: HO.HMCC 10:40
PROVIDERS: PCP Nurse Practitioner Family; Visit Provider Nurse Practitioner Family
DX: Z00.00 Encounter for general adult medical examination without abnormal findings (principal); E11.9 Type 2 diabetes mellitus without complications; R01.1 Cardiac murmur, unspecified; R93.1 Abnormal findings on diagnostic imaging of heart and coronary circulation

== ENCOUNTER 2024-08-28 10:39 | Outpatient (REF) | payer MEDICARE, SELFPAY ==
[2024-08-28 13:22] LABS: Appearance Urine Clear; Color Urine Yellow; Glucose Urine UA Negative (Negative); Leukocyte Esterase Urine Moderate (2+) (Negative); Nitrite Urine Negative (Negative); PH 5.5 (5.0-9.0); Specific Gravity - Urine 1.015 (1.005-1.025); UMIC TRIGGER UACC YES; Urine Blood Negative (Negative); Urine Ketones Negative (Negative); Urine Protein Negative (Neg-Trace)
[2024-08-28 13:26] LABS: Bacteria Urine None Seen (None Seen); Hyaline Casts Urine 0-2 /LPF (0-2); RBC Urine 0-2 /HPF (0-2); UACC Culture Trigger YES
== END 2024-08-28 10:40 | disposition home or self-care (01) ==
LOC: HO.HMGCLDS 10:39
PROVIDERS: PCP Nurse Practitioner Family; Visit Provider Nurse Practitioner Family
DX: Z00.01 Encounter for general adult medical examination with abnormal findings (principal); R01.1 Cardiac murmur, unspecified; R93.1 Abnormal findings on diagnostic imaging of heart and coronary circulation; E11.9 Type 2 diabetes mellitus without complications; L30.9 Dermatitis, unspecified
CPT/HCPCS: 81001; 87086; 96127; 99212; 99397

== ENCOUNTER 2024-09-10 10:33 | Outpatient (REF) | payer MEDICARE, SELFPAY ==
--- NOTE | ~2024-09-10 | XR_ITS ---
EXAMINATION: XR SHOULDER, LEFT CLINICAL INFORMATION: M25.512 - Pain in left shoulder COMPARISON: None available. TECHNIQUE: AP external rotation, Grashey, scapular Y, and axillary views of the left shoulder. FINDINGS: Mild degenerative changes are present AC joint with osteophytes. AC joint is intact. Glenohumeral joint is intact. Small marginal osteophytes are present at the superior glenoid. There is no dislocation. There is no tendinous calcifications. XR/XR shoulder LT min 2V IMPRESSION: Mild degenerative changes. Electronically signed by: Bradford You MD 09/10/2024 12:37 PM EDT
== END 2024-09-10 10:34 | disposition home or self-care (01) ==
LOC: HO.HMGCX 10:33
PROVIDERS: PCP Nurse Practitioner Family; Visit Provider Physician Assistant Medical
DX: M25.512 Pain in left shoulder (principal)
CPT/HCPCS: 73030; 99212

== ENCOUNTER 2024-09-10 10:33 | Outpatient (AMB) | payer MEDICARE, SELFPAY ==
[2024-09-10 10:36] VITALS: BP 142/70; PULSE 68; TEMP 36.7; O2SAT 98; BMI 47.1
--- NOTE | 2024-09-10 10:36 | AM.OFFWIN_ITS ---
Intake Vital Signs 09/10/24 10:36 Height 5 ft Weight 241 lb 6 oz BMI 47.1 BP 142/70 H Blood Pressure Location Rt radial Position Sitting Pulse 68 Pulse Source Pulse Oximeter Temp 98.1 F Temp Source Oral Pulse Oximetry (%) 98 Intake Visit Reasons: EP pain on LT arm Patient Tobacco Use Status: Never used Tobacco Job Setter Required: No Allergies latex (Latex) Allergy (Unknown, Verified 09/10/24 10:39) BLISTERS penicillin V Allergy (Unknown, Verified 09/10/24 10:39) unknown Penicillins Allergy (Unknown, Verified 09/10/24 10:39) RASH Do you need a note to return to daycare/school/sports/work: No HPI HPI Comments History of Present Illness Details History - This ia a 74-year-old female who prese nts today with left shoulder pain. - She started with pain in the left shou lder 2 days ago. - She states that she woke up with the p ain. - Pain is a constant, sharp pain in the left shoulder with radiation to the left lateral neck, posterior shoulder, and it radiates to the left arm. - She has pain with movement and it hurt s to lift her arm. - She has no known injury. - She states that she is right hand maikol nant. - She has not tried anything at home for the pain besides heat. - She has no chest pain, SOB, numbness, tingling, wrist or elbow pain. Physical Exam General: cooperative, healthy appearing and comfortable, patient oriented x3 Head: Normal to inspection, normocephalic/atraumatic Effort & Inspection: Normal respiratory effort and able to speak in complete sentences. Cardiac: RRR, no M/R/G noted. Normal S1 and S2. Respiratory: Clear to auscultation bilaterally. No w/r/r noted. Extremities: Decrease ROM of the left shoulder due to pain. No click noted on the left. No deformity noted. TTP of the left AC joint, anterior shoulder, bicipital groove. Supination and pronation is intact. Unable to perform a lift off test. Can test is negative. Apprehension test is negative. FROM of the left elbow and wrist. Motor strength normal 5/5 bilaterally. Hand document control supervisor is intact. Neuro: Sensation intact. Patient was informed and verbally consented to the use of an ambient scribe for clinic note documentation during this visit. [facility] Medical History HTN (hypertension) Thyroid disease Asthma Diabetes Surgical History Hx of colonoscopy History of esophagogastroduodenoscopy (EGD) History of thyroidectomy Hx of cholecystectomy History of tubal ligation History of tonsillectomy Social History Household Members: Spouse Housing: House Do you presently have visiting nurse or other home services: No Alcohol intake: current Alcohol intake frequency: holidays/special occasions only Patient Tobacco Use Status: Never used Tobacco e-Cigarette/Vaping Use: Never Used Second Hand Smoke Exposure: No service: No Current occupational status: retired Cognitive needs: No Hearing needs: No Vision needs: Yes Review of Systems Const All systems reviewed & are unremarkable except as noted in HPI and below Physical Exam Vital Signs: Last Vital Signs Temp 98.1 F 09/10/24 10:36 Pulse 68 09/10/24 10:36 BP 142/70 H 09/10/24 10:36 Pulse Ox 98 09/10/24 10:36 BMI result Body Mass Index 47.1 Assessment & Plan Assessment & Plan (1) Shoulder pain, left: Code(s): M25.512 - Pain in left shoulder Qualifiers: Chronicity: acute Qualified Code(s): M25.512 - Pain in left shoulder Plan Most likely calcific tendonitis vs arthritis vs strain vs bursitis Plan - Will order x-ray - Wear a sling - will refer her to ortho - Naproxen as needed for pain - Rest, ice and/or heat to the area - Follow up with PCP Orders: Orders XR shoulder LT min 2V Today M25.512 - Pain in left shoulder Referrals Orthopedics Referral M25.512 - Pain in left shoulder Coding Level of Care Code Est Pt Level 4 (10387) Diagnoses Acute pain of left shoulder M25.512 Chronicity: acute
--- OUTSIDE RECORDS SUMMARY | 2024-09-10 11:48 | XMS_ITS | Patient Health Record ---
Author Organization [facility] Address [address] [place] [address] Care Team Providers Care Aircraft Electrician Name Role Phone Chalo Justice MD Primary Care Provider Kadie Samuel Unavailable [phone] Allergies Allergen (clinical drug ingredient) Drug/Non Drug [...] Status W/U Status Risk Notes Problem Onychomycosis ([id number]) Onychomycosis (110.1) Active confirmed Problem Type II diabetes mellitus without complication (744904993) Diabetic - NIDDM (250.00) Active confirmed Problem Pain in limb (97744988) Pain in Limb (729.5) Active confirmed Problem Hammer toe (282912457) Hammer toe (735.4) Active confirmed Problem Metatarsalgia (23212492) Metatarsalgia (726.70) Active confirmed Problem Neuralgia - Neuritis (729.2) Active confirmed Problem Paronychia (71890076) Paronychia (681.11) Active confirmed Plan Of Treatment Pending Test Test Name Order Date [id number] NAIL, 1-5 12/27/2013 [id number] NAIL, 1-5 01/31/2014 [id number] NAIL, 1-5 03/06/2014 [id number] NAIL, 1-5 04/10/2014 [id number] NAIL, 1-5 05/13/2014 48179-Immjunbu Plate 05/13/2014 49833-Owthijot Plate 04/10/2014 44232-Lbbrvden Plate 03/06/2014 91543-Bavjkacd Plate Each Additional 42660-Iodmybrz Plate Each Additional 12800-Nfrnbtsx Plate Each Additional 50989 I&D ABSCESS- SIMPLE,SINGLE 015 07840 I&D ABSCESS- SIMPLE,SINGLE 015 84949 I&D ABSCESS- SIMPLE,SINGLE 014 77355 I&D ABSCESS- SIMPLE,SINGLE 014 51250 I&D ABSCESS- SIMPLE,SINGLE 014 69076, [id number]/INJECT, JOINT/BURSA 1 05/07/2013 98184, [id number]/INJECT, JOINT/BURSA 0 04/10/2014 Insurance Providers Payer Name Payer Address Payer Phone Subscriber Number Group Number Insured Name Patient Relationship to Insured Coverage Start Date Coverage End Date [employer] [address] [place] [address] [phone] [id number] Franco Duenas Spouse - patient is the spouse of the insured Medical (General) History Medical History History ICD Code Measles Chicken pox Mumps asthma Diabetic High blood pressure Surgical History Surgery Date(Month/Year) Tubes cut and tied 1982 Gallbladder 1991 left thyroid 1997 right thyroid 2011
== END 2024-09-10 12:21 | disposition home or self-care (01) ==
PROVIDERS: PCP Nurse Practitioner Family; Visit Provider Physician Assistant Medical
DX: M25.512 Pain in left shoulder (principal)

== ENCOUNTER → 2024-09-10 11:25 | Outpatient (BNV) | payer MEDICARE, SELFPAY | PROVIDERS: PCP Nurse Practitioner Family; Visit Provider Radiology Diagnostic Radiology | DX: M25.512 Pain in left shoulder (principal) | CPT/HCPCS: 73030 ==

== ENCOUNTER → 2024-10-10 12:32 | Outpatient (REF) | payer MEDICARE, SELFPAY ==
--- NOTE | 2024-10-10 12:34 | CA_ITS ---
Transthoracic Echocardiogram Patient (Last, First, Middle): YulissaAugust, Gender: Female Date of : 1950 Age: 74 Procedure Date: 10/10/2024 Procedure Type: Transthoracic Echocardiogram Location: OP Height: 152.4 cm Weight: 109.32 kg BSA: 2.02 m2 Heart Rate: 61 bpm BP: 140 / 68 mmHg Patrol Police Lieutenant: KARLY Referring MD: James William [facility] Corporate Ethics Officer: Sen Avilez MD Symptoms: R01.1 - Cardiac murmur, unspecified Study Quality: Fair ECG Rhythm: Sinus Conclusions: - 1. Normal LV ejection fraction of 65-70% 2. Calcific aortic valve changes noted with early mild aortic stenosis 3. No gross pericardial effusion Findings Procedure Information The quality of the study was technically difficult. The study quality is limited by patients body habitus. Left Ventricle Normal left ventricular size, thickness, and systolic function. The visually estimated ejection fraction is between 65-70%. Spectral Doppler is indicative of an impaired relaxation filling pattern. Right Ventricle Normal right ventricular cavity size and systolic function. Atria Both atria are normal in size. Interatrial shunt cannot be excluded. Aortic Valve There is mild calcification of the aortic valve. The peak aortic gradient is 13 mmHg.The mean gradient is 7 mmHg. The aortic valve area is 2.25 cm2. There is no aortic valve regurgitation. Mitral Valve There is mild anterior and moderate posterior mitral leaflet thickening. There is moderate mitral annular calcification. There is trace mitral valve regurgitation. There is no mitral valve stenosis. Pulmonic Valve The pulmonic valve was not well visualized. Tricuspid Valve Likely normal tricuspid valve structure and function. Tricuspid regurgitation envelope is inadequate for calculation of right ventricular systolic pressure. Normal right atrial pressure. Great Vessels All visible segments of the aorta are normal in size. The pulmonary artery was not well visualized. There is no dilatation of the ascending aorta measuring 3.00 cm. Venous The inferior vena cava is normal in size and collapses greater than 50% with inspiration. Pericardium/Pleural There is no evidence of pericardial effusion. Prior Study Comparison Changes noted compared to prior study dated: 08/12/2023. early mild aortic stenosis noted Measurements 2D Linear Measurements IVSd: 0.65 0.6-0.9/0.6-1.0 cm LVIDd: 4.63 3.9-5.3/4.2-5.9 cm LVIDd Index: 2.29 2.4-3.2/2.2-3.1 cm/m2 LVIDs: 2.59 2.0-3.6 cm LVPWd: 0.81 0.7-1.1 cm Ao Root: 2.30 2.1-3.5 cm LA Diam: 3.30 2.7-3.8/3.0-4.0 cm LAIDs Index: 1.63 1.5-2.3 cm/m2 LV Mass: 131.79 67-162/88-224 g LV Mass Index: 65.24 43-95/49-115 g/m2 LVOT Diam: 2.00 3.0+(-)1.3 cm 2D Systolic Function EF 4C: 65.40 >55% Mitral Valve MV Pk E: 1.26 MV PK A: 1.15 MV Decel Time: 218.00 E/A: 1.10 E'Lateral: 5.87 E'Medial: 4.68 E/E' Med: 26.90 E/E' Lat: 21.50 PHT: 64.00 MVA PHT: 3.44 Decel [place]: 5.75 Aortic Valve AoV Pk Carlo: 1.79 AoV Mn Carlo: 1.20 AoV VTI: 0.41 AoV Pk Grad: 13.00 Aov Mn Grad: 7.00 AMARJIT Cont.VTI: 2.25 LVOT LVOT Pk Carlo: 1.25 LVOT Mn Carlo: 0.85 LVOT VTI: 0.30 LVOT Pk Grad: 6.00 LVOT Mn Grad: 4.00 LVOT Diam: 2.00 LVOT Area: 3.14 Diastolic Function MV Pk E: 1.26 MV Pk A: 1.15 E/A: 1.10 E'Medial: 4.68 E/E' Med: 26.90 E' Laterial: 5.87 E/E' Lat: 21.50 Right Ventricle TAPSE (mm): 20.00 TVS' Carlo: 14.90 Tricuspid Valve RA Press: 3.00 Great Vessels Aorta Ao Root-2D: 2.30 2.0-3.7 cm Ao Asc: 3.00 2.1-3.4 cm Pulmonary Veins Pulm Vein S/D 1.40 Pulmonary Valve PV Pk Carlo: 0.99 Peak PV Grad: 4.00 Updated in Other Vendor System with Status of Final Sen Avilez MD electronically signed on 10/10/2024 2:46:45 PM with status of Final
--- OUTSIDE RECORDS SUMMARY | 2024-10-10 12:56 | XMS_ITS | Patient Health Record ---
Author Organization [facility] Address [address] [place] [address] Care Team Providers Care Technical Mgr Name Role Phone Chalo Justice MD Primary Care Provider Kadie Samuel Unavailable [phone] Allergies Allergen (clinical drug ingredient) Drug/Non Drug Allergy documented on EMR Reaction Allergy Type Onset Date Status Penicillin hives Drug Allergy Active latex hives Drug Allergy Active Reason For Referral No Information Medications Medication SIG (Take, Route, Frequency, Duration) Notes Start Date End Date Status metFORMIN HCl 1000 MG Orally Active Feldene 20 MG 1 capsule with food Orally Once a day; Duration: 30 day(s) 01/31/2014 Active ProAir HFA 108 [...] Status W/U Status Risk Notes Problem Onychomycosis (899287223) Onychomycosis (110.1) Active confirmed Problem Type II diabetes mellitus without complication (031819703) Diabetic - NIDDM (250.00) Active confirmed Problem Pain in limb (42010799) Pain in Limb (729.5) Active confirmed Problem Hammer toe (660989976) Hammer toe (735.4) Active confirmed Problem Metatarsalgia (82465954) Metatarsalgia (726.70) Active confirmed Problem Neuralgia - Neuritis (729.2) Active confirmed Problem Paronychia (96611341) Paronychia (681.11) Active confirmed Plan Of Treatment Pending Test Test Name Order Date 44413-IJAPURE NAIL, 1-5 12/27/2013 24865-MKMFIZP NAIL, 1-5 01/31/2014 20973-BXUQVVH NAIL, 1-5 03/06/2014 10492-FTBMSVV NAIL, 1-5 04/10/2014 25587-CXKTCKW NAIL, 1-5 05/13/2014 12869-Tjjwmglh Plate 05/13/2014 13738-Xclwhlnr Plate 04/10/2014 24331-Fzlqllvr Plate 03/06/2014 34941-Fgmdatck Plate Each Additional 00252-Rlgaofkp Plate Each Additional 33068-Crzqzntf Plate Each Additional 30959 I&D ABSCESS- SIMPLE,SINGLE 015 67457 I&D ABSCESS- SIMPLE,SINGLE 015 31485 I&D ABSCESS- SIMPLE,SINGLE 014 99735 I&D ABSCESS- SIMPLE,SINGLE 014 26379 I&D ABSCESS- SIMPLE,SINGLE 014 38447, T0535-PZWFX/INJECT, JOINT/BURSA 1 05/07/2013 73916, Q1338-LZEAZ/INJECT, JOINT/BURSA 0 04/10/2014 Insurance Providers Payer Name Payer Address Payer Phone Subscriber Number Group Number Insured Name Patient Relationship to Insured Coverage Start Date Coverage End Date [facility] [address] [place] [address] [place] [address] [id number] Franco Duenas Spouse - patient is the spouse of the insured Medical (General) History Medical History History ICD Code Measles Chicken pox Mumps asthma Diabetic High blood pressure Surgical History Surgery Date(Month/Year) Tubes cut and tied 1982 Gallbladder 1991 left thyroid 1997 right thyroid 2011
--- OUTSIDE RECORDS SUMMARY | 2024-10-10 12:56 | XMS_ITS | Patient Health Record ---
Author Organization [facility] Address [address] [place] [address] Care Team Providers Care Executive Consultant Name Role Phone AJIT JARRETT Primary Care Provider Cory Leija Unavailable [phone] Allergies Allergen (clinical drug ingredient) Drug/Non Drug Allergy documented on EMR Reaction Allergy Type Onset Date Status Penicillin Unknown Drug Allergy Active Reason For Referral No [...] Montelukast Sodium A ctive Levothyroxine Sodium Active Immunizations Vaccine Route Administration Date Status Comme nts Influenza Unknown 12/20/2019 Administered Influenza Unknown 11/19/2020 Administered Problems Problem Type SNOMED Code ICD Code Onset Dates Problem Status W/U Status Risk Notes Problem Esophageal reflux (659685574) Esophageal reflux (K21.9) Active confirmed Problem 925938371 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 Problem Iron deficiency anemia (89988950) Iron deficiency anemia (D50.9) Active confirmed Problem 88363134 Heme + stool (R19.5) Active confirmed Problem 214407889 Iron deficiency anemia due to chronic blood loss (D50.0) Active confirmed Problem 871300877 Gastritis and duodenitis (K29.90) Active confirmed Problem Diverticulosis of sigmoid colon (856495102) Diverticulosis of sigmoid colon (K57.30) Active confirmed Plan Of Treatment Pending Test Test Name Order Date IRON [...] Insured Coverage Start Date Coverage End Date [facility] [address] [place] [phone] [id number] August Self - patient is the insured Medical (General) History Medical History History ICD Code Screening Colonos copy --only diverticulosis and internal hemorrhoids; negative screening colonoscopy in 2014 Hypothyroidism Hypertension NIDDM Asthma Denies [place],CVA,renal disease Iron def anemia in August of [...]
== END ==
LOC: HO.CARD 12:32
PROVIDERS: PCP Nurse Practitioner Family; Visit Provider Nurse Practitioner Family
DX: R01.1 Cardiac murmur, unspecified (principal); R93.1 Abnormal findings on diagnostic imaging of heart and coronary circulation
CPT/HCPCS: 93306

== ENCOUNTER → 2024-10-10 12:34 | Outpatient (BNV) | payer MEDICARE, SELFPAY | PROVIDERS: PCP Nurse Practitioner Family; Visit Provider Internal Medicine Cardiovascular Disease | DX: I35.0 Nonrheumatic aortic (valve) stenosis (principal); I35.8 Other nonrheumatic aortic valve disorders; I34.81 Nonrheumatic mitral (valve) annulus calcification | CPT/HCPCS: 93306 ==

== ENCOUNTER 2025-01-28 10:06 | Outpatient (REF) | payer MEDICARE, SELFPAY | END 2025-01-28 10:07 | disposition home or self-care (01) | LOC: HO.MAMMO 10:06 | PROVIDERS: PCP Nurse Practitioner Family; Visit Provider Nurse Practitioner Family | DX: Z12.31 Encounter for screening mammogram for malignant neoplasm of breast (principal) | CPT/HCPCS: 77063; 77067 ==

== ENCOUNTER → 2025-01-28 10:15 | Outpatient (BNV) | payer MEDICARE, SELFPAY | PROVIDERS: PCP Nurse Practitioner Family; Visit Provider Internal Medicine | DX: Z12.31 Encounter for screening mammogram for malignant neoplasm of breast (principal) | CPT/HCPCS: 77063; 77067 ==

== ENCOUNTER 2025-02-12 09:16 | Outpatient (REF) | payer MEDICARE, SELFPAY ==
[2025-02-12 11:47] LABS: Free T4 (Free Thyroxine) 1.39 ng/dL (0.71-1.85)
== END 2025-02-12 09:17 | disposition home or self-care (01) ==
LOC: HO.HMGCLDS 09:16
PROVIDERS: PCP Nurse Practitioner Family; Visit Provider Nurse Practitioner Family
DX: R79.89 Other specified abnormal findings of blood chemistry (principal); Z13.29 Encounter for screening for other suspected endocrine disorder
CPT/HCPCS: 36415; 84439; 84443

== ENCOUNTER 2025-02-28 09:45 | Outpatient (AMB) | payer MEDICARE, SELFPAY ==
--- NOTE | 2025-02-28 09:49 | MHC.PC.OV ---
Vital Signs 02/28/25 09:50 02/28/25 10:24 Height 5 ft Weight 251 lb BMI 49.0 BP 148/84 H 130/74 Blood Pressure Location Lt brachial Position Sitting Respiration 16 Pulse 63 Pulse Source Pulse Oximeter Pulse Oximetry (%) 98 Oxygen Delivery Method Room Air Intake Visit Reasons: 6m f/u Solution Professional Required: No Accompanied by: Self / Same As Patient Allergies latex (Latex) Allergy (Unknown, Verified 02/28/25 09:51) BLISTERS penicillin V Allergy (Unknown, Verified 02/28/25 09:51) unknown Penicillins Allergy (Unknown, Verified 02/28/25 09:51) RASH Medication List - Last Reconciled 02/28/25 by DAVID Britt- albuterol sulfate 90 mcg/actuation (ProAir HFA) 2 puffs inhalation Q6H PRN atenolol 50 mg PO DAILY cholecalciferol (vitamin D3) 50 mcg PO DAILY hydrochlorothiazide 25 mg PO DAILY levothyroxine 125 mcg PO DAILY metformin 1,000 mg PO BID 90 days montelukast 10 mg PO BEDTIME Tobacco use date assessed: 08/28/24 Fall risk assessment: No Falls in past year Last assessed Fall Risk: 02/28/25 Dental Screening Dental Screen Date: 02/28/25 Did you have a dental visit in the last 12 months?: Yes Did you have a dental problem in the last 6 months where you did not have access to dental care?: No Was dental information given to patient?: Patient has dentist HPI 6m f/u HPI Details Chief Complaint The patient presents for a follow-up visit for diabetes and hypertension. History of Present Illness The patient is a 74 year old female presenting for follow-up for diabetes and hypertension. She has a history of morbid obesity. Her blood pressure is stable at 130/74 mmHg. Regarding diabetes, her A1c is 6.6, and her microalbumin is up to date. 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 She has no history of smoking. The patient denies chest pain, shortness of breath, headaches, and blurred vision. Social History - Tobacco Use: Patient has never smoked. Health Maintenance - Her microalbumin screening is up to date. Review of Systems - Cardiovascular: Denies chest pain. - Respiratory: Denies shortness of breath. - Neurological: Reports intermittent neuropathy of her feet. Denies headaches. - Eyes: Denies blurred vision. -denies any BLANKENSHIP Physical Exam General: Cooperative, healthy appearing, comfortable, no acute distress and well developed, morbidly obese Orientation: Patient oriented x3 Limitations: No limitations Head: Normal to inspection Ears: Hearing grossly normal bilaterally Nose: Normal external nose present Face and sinus: Normal facial exam Eyes: Appearance normal, both eyes and all related structures Neck: Normal visual inspection and Yes full ROM Respiratory: Normal respiratory effort and able to speak in complete sentences. Clear to auscultation bilaterally Cardiovascular: irregular, systolic murmur noted, bigeminy GI: Normal to inspection. Soft to palpation and nontender Skin: No rashes or lesions noted, feet a little dry Neuro: Patient oriented x3 Extremities: +1 pitting edema in lower extremities, normal to inspection Results - A1c: 6.6%. - Microalbumin: Up to date. Plan 1. Diabetes Mellitus The patient's A1c is stable at 6.6. She has intermittent neuropathy in her feet, but sensation is intact on monofilament exam. Her feet appear dry but are otherwise intact. She will get labs in the near future to continue monitoring. labs ordered 2. Hypertension The patient's blood pressure is stable at 130/74 mmHg. 3. Peripheral Edema The patient has +1 pitting edema in her bilateral lower extremities. She was encouraged to reduce her sodium intake, elevate her legs when sitting or lying down, and may use compression stockings if she wishes. Venous insufficiency testing is not being pursued at this time but may be considered in the future if symptoms persist. 4. arrhythmia, bigeminy on ekg, referring to cardiology, labs ordered, pt asymptomatic Discussion Notes I discussed the management of her bilateral lower extremity edema, advising her to watch her sodium intake, keep her legs elevated, and consider using compression stockings. I informed her that we would not pursue venous insufficiency testing at this time but may consider it in the future if the condition continues. I also told her she would be getting labs done in the near future. Patient Instructions - To help with the swelling in your legs, try to watch the amount of salt in your diet and keep your legs propped up when you are sitting or lying down. - You may use compression stockings if you want to help with the swelling. - You will need to get lab work done in the near future. [facility] Medical History HTN (hypertension) Thyroid disease Asthma Diabetes Surgical History Hx of colonoscopy History of esophagogastroduodenoscopy (EGD) History of thyroidectomy Hx of cholecystectomy History of tubal ligation History of tonsillectomy Social History Household Members: Spouse Housing: House Do you presently have visiting nurse or other home services: No Alcohol intake: current Alcohol intake frequency: holidays/special occasions only Patient Tobacco Use Status: Never used Tobacco e-Cigarette/Vaping Use: Never Used Second Hand Smoke Exposure: No service: No Current occupational status: retired Cognitive needs: No Hearing needs: No Vision needs: Yes Questionnaire PHQ-9 Over the last 2 weeks, how often have you been bothered by any of the following problems? 1. Little interest or pleasure in doing things: not at all 2. Feeling down, depressed, or hopeless: not at all 3. Trouble falling or staying asleep, or sleeping too much: not at all 4. Feeling tired or having little energy: not at all 5. Poor appetite or overeating: not at all 6. Feeling bad about yourself - or that you are a failure or have let yourself or your family down: not at all 7. Trouble concentrating on things, such as reading the newspaper or watching television: not at all 8. Moving or speaking so slowly that other people could have noticed. Or the opposite - being so fidgety or restless that you have been moving around a lot more than usual: not at all 9. Thoughts that you would be better off or of hurting yourself in some way: not at all Total score: 0 Depression Screening Interpretation: Negative Depression Screening Done: Yes 47095 - PHQ-9 Billing: Yes Source: Developed by Drs. Cory Medrano, Jennifer Flynn, Nathen Garrison and colleagues, with an educational erin from [employer]. Thrive Questionnaire Date Thrive assessed: 08/21/24 I am a: Patient What is your living situation today?: I have a steady place to live Within the past 12 months, did the food you bought not last and you didn't have the money to get more?: Sometimes True Within the past 12 months, did you worry whether your food would run out before you got money to buy more?: Sometimes True Do you have trouble paying for medicines?: No Do you have trouble getting transportation to medical appointments?: No Do you have trouble paying your heating and electricity bill?: I choose not to answer this question Do you have trouble taking care of your child, family member or friend?: No Do you have trouble with day-to-day activities such as bathing, preparing meals, shopping, managing finances, etc.?: No Are you currently unemployed and looking for a job?: No Are you interested in more education?: No Please select the resources that you would like help with: None Currently or been in a relationship where the following occur: No concerns reported THRIVE Score: 2 KRYSTYNA-7 AMB Questionnaire KRYSTYNA-7 Date KRYSTYNA - 7 assessed: 02/28/25 Feeling nervous, anxious, or on edge: 0 = Not at all Not being able to stop or control worryin = Not at all Worrying too much about different things: 0 = Not at all Trouble relaxin = Not at all Being so restless that it is hard to sit still: 0 = Not at all Becoming easily annoyed or irritable: 0 = Not at all Feeling afraid as if something awful might happen: 0 = Not at all Total KRYSTYNA-7 score (0-4 normal; 5-9 mild; 10-14 moderate; 15-21 severe): 0 Source: Developed by Drs. Cory Medrano, Jennifer Flynn, Nathen Garrison and colleagues, with an educational erin from [employer]. KRYSTYNA-7 Assessment Billing KRYSTYNA-7 Assessment Tool: KRYSTYNA-7 Assessment 59027 Physical exam (Primary Care) Vital Signs: Last Vital Signs Pulse 63 02/28/25 09:50 Resp 16 02/28/25 09:50 BP 130/74 02/28/25 10:24 Pulse Ox 98 02/28/25 09:50 Oxygen Delivery Method Room Air 02/28/25 09:50 BMI result Body Mass Index 49.0 Tobacco/Smoking Status: Tobacco use Status Tobacco use date assessed 08/28/24 02/28/25 09:57 Patient Tobacco Use Status Never used Tobacco 02/28/25 09:57 e-Cigarette/Vaping Use Never Used 02/28/25 09:57 PHQ-9: PHQ-9 Score PHQ-9: Total score 0 02/28/25 10:08 Depression Screening Interpretation: Negative Thrive Assessment: Date of Thrive Assessment Date Thrive assessed 08/21/24 02/28/25 09:57 Currently or been in a relationship where the following occur: No concerns reported Coding Level of Care Code Est Pt Level 4 (85643) Diagnoses Diabetes E11.9 HTN (hypertension) I10 Systolic murmur R01.1 Abnormal echocardiogram R93.1 Arrhythmia I49.9 Additional Codes KRYSTYNA-7 Assessment Billing - KRYSTYNA-7 Assessment Tool: KRYSTYNA-7 Assessment 15306 ([id number]) PHQ-9 - 81286 - PHQ-9 Billing: Yes ([id number]) Assessment & Plan Assessment & Plan (1) Diabetes: Code(s): E11.9 - Type 2 diabetes mellitus without complications Category: Medical (2) HTN (hypertension): Code(s): I10 - Essential (primary) hypertension Category: Medical (3) Systolic murmur: Code(s): R01.1 - Cardiac murmur, unspecified Category: Medical (4) Abnormal echocardiogram: Code(s): R93.1 - Abnormal findings on diagnostic imaging of heart and coronary circulation Category: Medical (5) Arrhythmia: Code(s): I49.9 - Cardiac arrhythmia, unspecified Category: Medical Plan . Orders: Orders Complete Blood Count Auto Diff Today E11.9 - Type 2 diabetes mellitus without complications, I10 - Essential (primary) hypertension TSH reflex Free T4 Today E11.9 - Type 2 diabetes mellitus without complications, I10 - Essential (primary) hypertension UA CC w/rflx Micro + Cult Today E11.9 - Type 2 diabetes mellitus without complications, I10 - Essential (primary) hypertension CA echo transthoracic complete 6 Months R01.1 - Cardiac murmur, unspecified, R93.1 - Abnormal findings on diagnostic imaging of heart and coronary circulation Comprehensive [place]. Panel Fast Today E11.9 - Type 2 diabetes mellitus without complications, I10 - Essential (primary) hypertension Lipid Panel Today E11.9 - Type 2 diabetes mellitus without complications, I10 - Essential (primary) hypertension AMB EKG-In Office Today I10 - Essential (primary) hypertension Magnesium Today I10 - Essential (primary) hypertension, I49.9 - Cardiac arrhythmia, unspecified, R01.1 - Cardiac murmur, unspecified Referrals Cardiology Referral I49.9 - Cardiac arrhythmia, unspecified
[2025-02-28 09:50] VITALS: BP 148/84; PULSE 63; RESP 16; O2SAT 98; BMI 49.0
[2025-02-28 10:24] VITALS: BP 130/74
== END 2025-02-28 10:58 | disposition home or self-care (01) ==
LOC: HO.HMCC 09:46
PROVIDERS: PCP Nurse Practitioner Family; Visit Provider Nurse Practitioner Family
DX: E11.9 Type 2 diabetes mellitus without complications (principal); I10 Essential (primary) hypertension; R01.1 Cardiac murmur, unspecified; R93.1 Abnormal findings on diagnostic imaging of heart and coronary circulation; I49.9 Cardiac arrhythmia, unspecified; Z13.9 Encounter for screening, unspecified

== ENCOUNTER → 2025-02-28 09:45 | Outpatient (BNVA) | payer MEDICARE, SELFPAY | PROVIDERS: PCP Nurse Practitioner Family; Visit Provider Nurse Practitioner Family | DX: I10 Essential (primary) hypertension (principal); E11.9 Type 2 diabetes mellitus without complications; R01.1 Cardiac murmur, unspecified; R93.1 Abnormal findings on diagnostic imaging of heart and coronary circulation; Z13.31 Encounter for screening for depression; Z13.39 Encounter for screening examination for other mental health and behavioral disorders; Z79.899 Other long term (current) drug therapy | CPT/HCPCS: 83036; 96127; 99212 ==